=== PATIENT | female | born 1955 | race Caucasian/White ===

== ENCOUNTER 2020-07-02 12:54 | Outpatient (REF) | payer MEDICARE, SELFPAY ==
--- NOTE | 2020-07-02 13:05 | XR_ITS ---
EXAMINATION: XR CHEST CLINICAL INFORMATION: Lung nodule COMPARISON: Previous chest x-ray September 2014 TECHNIQUE: 2 views of the chest were obtained. FINDINGS: The cardiac and mediastinal contours are normal. There is increased density in the right upper lobe overlying the right first rib costochondral cartilage. This area measures approximately 0.7 x 2.3 cm. The lungs are otherwise clear. There is no pleural effusion or pneumothorax. There are degenerative changes of the spine. XR/XR chest 2V IMPRESSION: 0.7 x 2.3 cm increased density in the right upper lobe possibly related to right first rib costochondral cartilage. Comparison with old outside exams recommended. This could be further evaluated with apical lordotic view of the chest or chest CT scan.
== END 2020-07-02 12:55 | disposition home or self-care (01) ==
LOC: HO.XRAY 12:54
PROVIDERS: PCP Internal Medicine; Visit Provider Internal Medicine
DX: R91.1 Solitary pulmonary nodule (principal)
CPT/HCPCS: 71046

== ENCOUNTER 2020-07-22 09:54 | Outpatient (REF) | payer MEDICARE, SELFPAY ==
--- NOTE | 2020-07-22 09:58 | CT_ITS ---
EXAMINATION: CT CHEST WITHOUT CONTRAST CLINICAL INFORMATION: Follow-up abnormal chest x-ray COMPARISON: Previous chest x-ray July 02, 2020 TECHNIQUE: Multidetector volumetric CT imaging of the chest was done. Axial MIP volume rendering provided. Sagittal and coronal reformatted images were obtained. This CT examination was performed using dose optimization techniques as appropriate, variously including the following: *Automated exposure control *Adjustment of mA and/or kV according to patient size (this includes techniques or standardized protocols for targeted exams where dose is matched to indication/reason for exam; i.e. extremities or head) *Use of iterative reconstruction technique DLP: 214 mGy-cm FINDINGS: ASSESSMENT NURSE PRACTITIONER: LUNGS: There is a 7 mm slightly heterogeneous or semisolid right upper lobe nodule axial image 100 series 5. There is a 2 mm right upper lobe nodule axial image 126 series 5. There is a 2 mm right lower lobe nodule axial image 380 series 5. There are several peripheral or subpleural right lower lobe nodules probably representing subpleural lymph nodes, largest measuring 2 x 6 mm axial image 447 series 5. There is linear scarring or subsegmental atelectasis in the anterior segment of the right upper lobe and in the right lower lobe adjacent to the spine/vertebral body bony osteophyte. MEDIASTINUM: The thyroid gland has been removed. There are no enlarged hilar or mediastinal lymph nodes. The heart does not appear enlarged. There is mild coronary artery calcification. There is no pericardial effusion. The thoracic aorta is normal in caliber. There may be evidence of previous surgery at the gastroesophageal junction region. PLEURA: There is no pleural effusion. No pleural mass or thickening. AXILLA: No lymphadenopathy. UPPER ABDOMEN: Unremarkable. OSSEOUS STRUCTURES: There are degenerative changes of the spine. CT/CT chest wo con IMPRESSION: Pulmonary nodules, largest a 7 mm heterogeneous right upper lobe nodule. Chest CT follow-up in one year recommended. Post thyroidectomy. Mild coronary artery calcification.
== END 2020-07-22 09:55 | disposition home or self-care (01) ==
LOC: HO.CT 09:54
PROVIDERS: PCP Internal Medicine; Visit Provider Internal Medicine
DX: R93.89 Abnormal findings on diagnostic imaging of other specified body structures (principal)
CPT/HCPCS: 71250

== ENCOUNTER 2020-12-02 10:36 | Outpatient (REF) | payer MEDICARE, SELFPAY ==
[2020-12-02 10:40] LABS: MANUAL DIFF FLAG NO
[2020-12-02 11:03] LABS: Basophils Percent Auto 0.7 % (0-2); Eosinophils Absolute Auto 0.1 X10*3/uL (0.0-0.4); Eosinophils Percent Auto 1.7 % (0-4); Hematocrit 39.7 % (37-47); Hemoglobin 12.8 g/dl (12.0-16.0); Imm Gran Abs Auto 0.02 X10*3/uL (0.00-0.03); Imm Gran Pct Auto 0.3 % (0.0-0.4); Lymphocytes Absolute Auto 1.7 X10*3/uL (1.2-4.9); Lymphocytes Percent Auto 27.8 % (20-40); Mean Corpuscular HGB Conc 32.2 g/dl (31.0-35.0); Mean Corpuscular Hemoglobin 29.2 pg (27.0-33.0); Mean Corpuscular Volume 90.6 fL (80-98); Mean Platelet Volume 11.6 fL (9.4-12.3); Monocytes Absolute Auto 0.5 X10*3/uL (0.1-1.2); Monocytes Percent Auto 8.1 % (2-11); Neutrophils Absolute Auto 3.7 X10*3/uL (2.0-8.3); Neutrophils Percent Auto 61.4 % (45-73); Platelet Count 202 X10*3/uL (160-400); Red Blood Count 4.38 X10*6/uL (4.20-5.50); Red Cell Distribution Width 14.5 % (11.0-16.0)
[2020-12-02 12:40] LABS: TSH reflex Free T4 6.86 uIU/mL (0.32-4.0)
[2020-12-02 12:52] LABS: Alanine Aminotransferase 18 U/L (0-31); Albumin Level 4.2 g/dL (3.5-5.0); Alkaline Phosphatase 111 U/L (39-117); Anion Gap 15 (12-20); Aspartate Amino Transferase 18 U/L (5-31); Bilirubin Total 0.7 mg/dL (0.0-1.0); Blood Urea Nitrogen 22 mg/dL (9-16); Calcium 9.2 mg/dL (8.4-10.2); Carbon Dioxide 28 mmol/L (22-29); Chloride 102 mmol/L (96-108); Cholesterol 251 mg/dL; Estimated Glomerular Filt Rate 55; Glucose Fasting 96 mg/dL (60-99); HDL Cholesterol 58 mg/dL; LDL Cholesterol Calculated 141 mg/dl; Potassium 3.9 mmol/L (3.3-5.1); Sodium 141 mmol/L (135-145); Triglycerides 264 mg/dL
[2020-12-02 13:01] LABS: Reflex LDLD? No
[2020-12-02 13:37] LABS: Free T4 (Free Thyroxine) 1.12 ng/dL (0.71-1.85)
== END 2020-12-02 10:37 | disposition home or self-care (01) ==
LOC: HO.LNP 10:36
PROVIDERS: Visit Provider Internal Medicine
DX: E03.9 Hypothyroidism, unspecified (principal); E78.00 Pure hypercholesterolemia, unspecified; I10 Essential (primary) hypertension
CPT/HCPCS: 80053; 80061; 84439; 84443; 85025

== ENCOUNTER 2021-01-14 14:05 | Outpatient (REF) | payer MEDICARE, SELFPAY ==
--- NOTE | ~2021-01-14 | MM_ITS ---
EXAMINATION: BONE DENSITOMETRY CLINICAL INDICATION: Postmenopausal. COMPARISON: None (current study represents initial baseline exam). TECHNIQUE: Using a [employer] DXA System (software version: 13.1) manufactured by [employer], dual-energy x-ray absorptiometry was performed of the lumbar spine and left hip. The images are of good technical quality. Summary results are attached. FINDINGS: AP SPINE L1-L3 (excluding L4): The data of L1-L4 has been changed to exclude the L4 vertebral body, because degenerative changes at this level may cause overestimation of lumbar spine density. BMD 1.360 g/cm2, Z-score 2.0, T-score 1.6, normal. LEFT FEMUR, NECK: BMD 0.978 g/cm2, Z-score 0.3, T-score -0.4, normal. LEFT FEMUR, TOTAL: BMD 1.036 g/cm2, Z-score 0.7, T-score 0.2, normal. IDENTIFIED RISK FACTORS: Early menopause, height loss, bilateral oophorectomy, history of fracture (adult), hysterectomy, low calcium intake, secondary osteoporosis, Thiazide. HISTORY OF FRACTURE: Pelvis. MEDICATIONS: Calcium, vitamin D. MM/XR DEXA axial skeleton IMPRESSION: 1. DIAGNOSIS: Normal bone density based on the lowest T-score value of -0.4 in the femoral neck applying World Health Organization criteria. 2. 10-YEAR FRACTURE RISK PREDICTION, FRAX: According to the guidelines, FRAX calculation should only be performed on patients in the osteopenia bone density category. Therefore, FRAX was not performed on this patient. 3. Treatment Recommendations: NOF guidelines recommend consideration for treatment in postmenopausal women and men age 50 and older presenting with the following: -A hip or vertebral (clinical or morphometric) fracture. -T-score less than or equal to -2.5 at the femoral neck or spine after appropriate evaluation to exclude secondary causes. -Low bone mass at the hip or spine and a 10-year fracture probability by FRAX of greater than or equal to 3% for hip fracture or greater than or equal to 20% for major osteoporotic fracture based on the [place] adapted WHO algorithm. 4. Other Recommendations: All treatment decisions require clinical judgment and consideration of individual patient factors, including patient preferences, comorbidities, previous drug use, risk factors not captured in the FRAX model (e.g. frailty, falls, vitamin D deficiency, increased bone turnover, interval significant decline in bone density) and possible under or overestimation of fracture risk by FRAX. FUTURE SCAN RECOMMENDATION: People with diagnosed cases of osteoporosis or at high risk for fracture should have regular bone mineral density tests. For patients eligible for Medicare, routine testing is allowed once every 2 years. The testing frequency can be increased to one year for patients who have rapidly progressing disease, those who are receiving or discontinuing medical therapy to restore bone mass, or have additional risk factors.
== END 2021-01-14 14:06 | disposition home or self-care (01) ==
LOC: HO.MAMMO 14:05
PROVIDERS: PCP Internal Medicine; Visit Provider Internal Medicine
DX: Z13.820 Encounter for screening for osteoporosis (principal); N95.8 Other specified menopausal and perimenopausal disorders; Z90.722 Acquired absence of ovaries, bilateral; Z98.890 Other specified postprocedural states; Z79.899 Other long term (current) drug therapy
CPT/HCPCS: 77080

== ENCOUNTER 2021-02-06 10:15 | Outpatient (REF) | payer MEDICARE, SELFPAY ==
[2021-02-06 11:13] LABS: TSH reflex Free T4 4.25 uIU/mL (0.32-4.0)
[2021-02-06 11:48] LABS: Free T4 (Free Thyroxine) 1.15 ng/dL (0.71-1.85)
== END 2021-02-06 10:16 | disposition home or self-care (01) ==
LOC: HO.LNP 10:15
PROVIDERS: Visit Provider Internal Medicine
DX: E03.9 Hypothyroidism, unspecified (principal)
CPT/HCPCS: 84439; 84443

== ENCOUNTER 2021-07-27 13:16 | Outpatient (REF) | payer MEDICARE, SELFPAY ==
--- NOTE | ~2021-07-27 | CT_ITS ---
EXAMINATION: CT CHEST WITHOUT CONTRAST CLINICAL INFORMATION: Lung nodule. COMPARISON: CT chest 07/22/2020 and chest x-ray 07/02/2020. TECHNIQUE: Multidetector volumetric CT imaging of the chest was done. Axial MIP volume rendering provided. Sagittal and coronal reformatted images were obtained. This CT examination was performed using dose optimization techniques as appropriate, variously including the following: *Automated exposure control *Adjustment of mA and/or kV according to patient size (this includes techniques or standardized protocols for targeted exams where dose is matched to indication/reason for exam; i.e. extremities or head) *Use of iterative reconstruction technique DLP: 231 mGy-cm FINDINGS: GEAR REPAIRER: Well inflated lungs without acute process. LUNGS: The lungs are well inflated and clear acute pneumonic consolidation. There is irregular 5 mm nodule right lung apex image 84/6, 2 mm nodule right upper lobe posteriorly image 101/6, new focal atelectasis medially right middle lobe, previously visualized several subpleural pulmonary nodules are less distinct at this time in the right lower lobe. No new nodules visualized at this time. MEDIASTINUM: Surgical antoni seen in the thyroid bed from previous thyroidectomy. Central trachea and the bronchi widely patent. Heart size and the great vessels are normal caliber. Mild arthroscopic calcification of thoracic aorta and left coronary artery is noted. Mild mitral valve calcification is present as well. There is no pericardial effusion. No abnormal mediastinal adenopathy. Small hiatal hernia is suspected. PLEURA: There is no pleural effusion. No pleural mass or thickening. AXILLA: No lymphadenopathy. UPPER ABDOMEN: Julys liver, spleen, pancreas and bilateral adrenal glands are unremarkable. OSSEOUS STRUCTURES: No lytic or sclerotic process seen. There is moderate ventral spondylosis dorsal spine. CT/CT chest wo con IMPRESSION: 1. Stable pulmonary nodules. The largest right upper lobe pulmonary nodule measures 5 mm. Previously it measured 7 mm. No new nodules or abnormal mediastinal adenopathy seen. 2. Recommend long-term 18/24 month follow-up as per Fleischner guidelines .
== END 2021-07-27 13:17 | disposition home or self-care (01) ==
LOC: HO.CT 13:16
PROVIDERS: Visit Provider Internal Medicine
DX: R91.1 Solitary pulmonary nodule (principal)
CPT/HCPCS: 71250

== ENCOUNTER 2021-08-31 10:16 | Outpatient (REF) | payer MEDICARE, SELFPAY ==
[2021-08-31 10:32] LABS: Alanine Aminotransferase 16 U/L (0-31); Alkaline Phosphatase 117 U/L (39-117); Aspartate Amino Transferase 20 U/L (5-31); Bilirubin Direct 0.2 mg/dL (0.0-0.5); Bilirubin Total 0.6 mg/dL (0.0-1.0); Cholesterol 243 mg/dL; HDL Cholesterol 52 mg/dL; LDL Cholesterol Calculated 145 mg/dl; Total Protein 6.9 g/dL (6.5-8.0); Triglycerides 234 mg/dL
== END 2021-08-31 10:17 | disposition home or self-care (01) ==
LOC: HO.LNP 10:16
PROVIDERS: PCP Internal Medicine; Visit Provider Internal Medicine
DX: E78.00 Pure hypercholesterolemia, unspecified (principal)
CPT/HCPCS: 80061; 80076

== ENCOUNTER 2021-12-08 10:47 | Outpatient (REF) | payer MEDICARE, SELFPAY ==
[2021-12-08 10:50] LABS: MANUAL DIFF FLAG NO
[2021-12-08 11:15] LABS: Basophils Percent Auto 0.3 % (0-2); Eosinophils Absolute Auto 0.1 X10*3/uL (0.0-0.4); Eosinophils Percent Auto 2.1 % (0-4); Hematocrit 38.5 % (37.0-47.0); Hemoglobin 12.1 g/dl (12.0-16.0); Imm Gran Abs Auto 0.02 X10*3/uL (0.00-0.03); Imm Gran Pct Auto 0.3 % (0.0-0.4); Lymphocytes Absolute Auto 1.5 X10*3/uL (1.2-4.9); Lymphocytes Percent Auto 24.9 % (20-40); Mean Corpuscular HGB Conc 31.4 g/dl (31.0-35.0); Mean Corpuscular Hemoglobin 28.2 pg (27.0-33.0); Mean Corpuscular Volume 89.7 fL (80.0-98.0); Mean Platelet Volume 11.3 fL (9.4-12.3); Monocytes Absolute Auto 0.4 X10*3/uL (0.1-1.2); Monocytes Percent Auto 7.4 % (2-11); Neutrophils Absolute Auto 3.8 x10*3/uL (2.0-8.3); Platelet Count 203 X10*3/uL (160-400); Red Blood Count 4.29 X10*6/uL (4.20-5.50); Red Cell Distribution Width 14.6 % (11.0-16.0); White Blood Count 5.8 X10*3/uL (4.8-10.8)
[2021-12-08 11:33] LABS: Alanine Aminotransferase 17 U/L (0-31); Alkaline Phosphatase 108 U/L (39-117); Anion Gap 12 (12-20); Aspartate Amino Transferase 15 U/L (5-31); Bilirubin Total 0.5 mg/dL (0.0-1.0); Blood Urea Nitrogen 18 mg/dL (9-16); Calcium 9.8 mg/dL (8.4-10.2); Carbon Dioxide 28 mmol/L (22-29); Chloride 104 mmol/L (96-108); Cholesterol 238 mg/dL; Estimated Glomerular Filt Rate 59; Glucose Fasting 97 mg/dL (60-99); HDL Cholesterol 55 mg/dL; LDL Cholesterol Calculated 141 mg/dl; Potassium 3.6 mmol/L (3.3-5.1); Sodium 140 mmol/L (135-145); Total Protein 6.7 g/dL (6.5-8.0); Triglycerides 211 mg/dL
[2021-12-08 11:54] LABS: TSH reflex Free T4 4.77 uIU/mL (0.32-4.0)
[2021-12-08 12:30] LABS: Free T4 (Free Thyroxine) 1.22 ng/dL (0.71-1.85)
== END 2021-12-08 10:48 | disposition home or self-care (01) ==
LOC: HO.LNP 10:47
PROVIDERS: Visit Provider Internal Medicine
DX: I10 Essential (primary) hypertension (principal); E03.9 Hypothyroidism, unspecified; E78.00 Pure hypercholesterolemia, unspecified
CPT/HCPCS: 80053; 80061; 81001; 84439; 84443; 85025

== ENCOUNTER 2021-12-14 15:34 | Outpatient (REF) | payer MEDICARE, SELFPAY ==
[2021-12-14 15:49] LABS: Appearance Urine HAZY; Color Urine YELLOW; Glucose Urine UA NEG (NEG); Leukocyte Esterase Urine NEG (NEG); Nitrite Urine POS (NEG); PH 5.5 (5.0-8.0); Specific Gravity - Urine >= 1.030 (1.005-1.025); Urine Blood NEG (NEG); Urine Ketones NEG (NEG); Urine Protein NEG (NEG-TRACE)
[2021-12-14 16:26] LABS: Bacteria Urine 4+ /LPF; Mucus Urine 2+ /LPF; RBC Urine 0 /HPF (0); Squamous Epithelial Cell Urine 2+ /LPF
== END 2021-12-14 15:35 | disposition home or self-care (01) ==
LOC: HO.LNP 15:34
PROVIDERS: Visit Provider Internal Medicine
DX: I10 Essential (primary) hypertension (principal); E78.00 Pure hypercholesterolemia, unspecified
CPT/HCPCS: 81001

== ENCOUNTER 2022-06-11 10:44 | Outpatient (REF) | payer MEDICARE, SELFPAY ==
[2022-06-11 15:38] LABS: Alanine Aminotransferase 15 U/L (0-31); Albumin Level 4.1 g/dL (3.5-5.0); Alkaline Phosphatase 113 U/L (39-117); Aspartate Amino Transferase 16 U/L (5-31); Bilirubin Direct < 0.2 mg/dL (0.0-0.5); Bilirubin Total 0.4 mg/dL (0.0-1.0); Cholesterol 219 mg/dL; HDL Cholesterol 53 mg/dL; LDL Cholesterol Calculated 118 mg/dl; Total Protein 6.9 g/dL (6.5-8.0); Triglycerides 240 mg/dL
[2022-06-11 16:09] LABS: Reflex LDLD? No
== END 2022-06-11 10:45 | disposition home or self-care (01) ==
LOC: HO.LNP 10:44
PROVIDERS: Visit Provider Internal Medicine
DX: E78.00 Pure hypercholesterolemia, unspecified (principal)
CPT/HCPCS: 80061; 80076

== ENCOUNTER 2022-09-16 11:27 | Outpatient (REF) | payer MEDICARE, SELFPAY ==
[2022-09-16 12:59] LABS: Alanine Aminotransferase 18 U/L (0-31); Albumin Level 4.1 g/dL (3.5-5.0); Alkaline Phosphatase 129 U/L (39-117); Aspartate Amino Transferase 20 U/L (5-31); Bilirubin Direct 0.2 mg/dL (0.0-0.5); Bilirubin Total 0.7 mg/dL (0.0-1.0); Cholesterol 188 mg/dL; HDL Cholesterol 53 mg/dL; LDL Cholesterol Calculated 99 mg/dl; Total Protein 6.9 g/dL (6.5-8.0); Triglycerides 182 mg/dL
== END 2022-09-16 11:28 | disposition home or self-care (01) ==
LOC: HO.LNP 11:27
PROVIDERS: Visit Provider Internal Medicine
DX: E78.00 Pure hypercholesterolemia, unspecified (principal)
CPT/HCPCS: 80061; 80076

== ENCOUNTER 2022-12-09 10:48 | Outpatient (REF) | payer MEDICARE, SELFPAY ==
[2022-12-09 10:51] LABS: MANUAL DIFF FLAG NO
[2022-12-09 11:09] LABS: Basophils Percent Auto 0.5 % (0-2); Eosinophils Absolute Auto 0.1 X10*3/uL (0.0-0.4); Eosinophils Percent Auto 1.9 % (0-4); Hematocrit 39.9 % (37.0-47.0); Hemoglobin 12.8 g/dl (12.0-16.0); Imm Gran Abs Auto 0.02 X10*3/uL (0.00-0.03); Imm Gran Pct Auto 0.3 % (0.0-0.4); Lymphocytes Absolute Auto 1.7 X10*3/uL (1.2-4.9); Lymphocytes Percent Auto 26.7 % (20-40); Mean Corpuscular HGB Conc 32.1 g/dl (31.0-35.0); Mean Corpuscular Hemoglobin 28.6 pg (27.0-33.0); Mean Corpuscular Volume 89.3 fL (80.0-98.0); Mean Platelet Volume 11.5 fL (9.4-12.3); Monocytes Absolute Auto 0.5 X10*3/uL (0.1-1.2); Monocytes Percent Auto 8.6 % (2-11); Neutrophils Absolute Auto 3.8 x10*3/uL (2.0-8.3); Platelet Count 218 X10*3/uL (160-400); Red Blood Count 4.47 X10*6/uL (4.20-5.50); Red Cell Distribution Width 14.8 % (11.0-16.0); White Blood Count 6.2 X10*3/uL (4.8-10.8)
[2022-12-09 11:34] LABS: Alanine Aminotransferase 123 U/L (0-31); Alkaline Phosphatase 464 U/L (39-117); Anion Gap 13 (12-20); Aspartate Amino Transferase 67 U/L (5-31); Bilirubin Total 0.6 mg/dL (0.0-1.0); Blood Urea Nitrogen 15 mg/dL (9-16); Calcium 9.7 mg/dL (8.4-10.2); Carbon Dioxide 30 mmol/L (22-29); Chloride 105 mmol/L (96-108); Cholesterol 177 mg/dL; Estimated Glomerular Filt Rate 55; Glucose Fasting 101 mg/dL (60-99); HDL Cholesterol 62 mg/dL; LDL Cholesterol Calculated 85 mg/dl; Potassium 4.6 mmol/L (3.3-5.1); Sodium 143 mmol/L (135-145); Total Protein 6.9 g/dL (6.5-8.0); Triglycerides 153 mg/dL
[2022-12-09 11:44] LABS: TSH reflex Free T4 1.89 uIU/mL (0.32-4.0)
== END 2022-12-09 10:49 | disposition home or self-care (01) ==
LOC: HO.LNP 10:48
PROVIDERS: PCP Internal Medicine; Visit Provider Internal Medicine
DX: I10 Essential (primary) hypertension (principal); E03.9 Hypothyroidism, unspecified; E78.00 Pure hypercholesterolemia, unspecified
CPT/HCPCS: 80053; 80061; 81001; 84443; 85025

== ENCOUNTER 2022-12-16 15:43 | Outpatient (REF) | payer MEDICARE, SELFPAY ==
[2022-12-16 16:18] LABS: Appearance Urine Clear; Color Urine Yellow; Glucose Urine UA Negative (Negative); Leukocyte Esterase Urine Trace (Negative); Nitrite Urine Positive (Negative); PH 5.5 (5.0-9.0); UMIC TRIGGER UACC YES; Urine Blood Negative (Negative); Urine Ketones Negative (Negative); Urine Protein Negative (Neg-Trace)
[2022-12-16 16:22] LABS: Bacteria Urine 4+ (None Seen); Hyaline Casts Urine 0-2 /LPF (0-2); RBC Urine 0-2 /HPF (0-2); Squamous Epithelial Cell Urine 0-2 /HPF (0-2); UACC Culture Trigger YES; WBC Urine 0-5 /HPF (0-5)
[2022-12-16 16:31] LABS: Alanine Aminotransferase 98 U/L (0-31); Albumin Level 4.1 g/dL (3.5-5.0); Alkaline Phosphatase 391 U/L (39-117); Aspartate Amino Transferase 55 U/L (5-31); Bilirubin Direct 0.2 mg/dL (0.0-0.5); Bilirubin Total 0.8 mg/dL (0.0-1.0); Total Protein 7.2 g/dL (6.5-8.0)
[2022-12-25 06:48] LABS: Alk.Phos Iso. Macrohepatic 22 % (<=0); Alk.Phos Isoenzymes Bone 26 % (28-66); Alk.Phos Isoenzymes Intest 0 % (1-24); Alk.Phos Isoenzymes Liver 52 % (25-69); Alk.Phos Isoenzymes Placental 0 % (<=0); Alk.Phos Isoenzymes Total 333 U/L (37-153)
== END 2022-12-16 15:44 | disposition home or self-care (01) ==
LOC: HO.LNP 15:43
PROVIDERS: Visit Provider Internal Medicine
DX: R79.89 Other specified abnormal findings of blood chemistry (principal); R74.8 Abnormal levels of other serum enzymes; I10 Essential (primary) hypertension; R82.90 Unspecified abnormal findings in urine
CPT/HCPCS: 80076; 81001; 84080; 87086; 87088; 87186

== ENCOUNTER 2023-01-03 10:44 | Outpatient (REF) | payer MEDICARE, SELFPAY ==
[2023-01-03 11:14] LABS: Appearance Urine Clear; Color Urine Yellow; Glucose Urine UA Negative (Negative); Leukocyte Esterase Urine Negative (Negative); Nitrite Urine Negative (Negative); PH 5.5 (5.0-9.0); Urine Blood Negative (Negative); Urine Ketones Negative (Negative); Urine Protein Negative (Neg-Trace)
[2023-01-03 11:17] LABS: Bacteria Urine None Seen (None Seen); Hyaline Casts Urine 0-2 /LPF (0-2); RBC Urine 0-2 /HPF (0-2); Squamous Epithelial Cell Urine 0-2 /HPF (0-2); WBC Urine 0-5 /HPF (0-5)
== END 2023-01-03 10:45 | disposition home or self-care (01) ==
LOC: HO.LNP 10:44
PROVIDERS: PCP Internal Medicine; Visit Provider Internal Medicine
DX: N39.0 Urinary tract infection, site not specified (principal)
CPT/HCPCS: 81001

== ENCOUNTER 2023-01-13 11:03 | Outpatient (REF) | payer MEDICARE, SELFPAY ==
[2023-01-13 11:52] LABS: Alanine Aminotransferase 22 U/L (0-31); Alkaline Phosphatase 154 U/L (39-117); Aspartate Amino Transferase 21 U/L (5-31); Bilirubin Direct 0.1 mg/dL (0.0-0.5); Bilirubin Total 0.5 mg/dL (0.0-1.0); Total Protein 6.9 g/dL (6.5-8.0)
== END 2023-01-13 11:04 | disposition home or self-care (01) ==
LOC: HO.LNP 11:03
PROVIDERS: Visit Provider Internal Medicine
DX: R79.89 Other specified abnormal findings of blood chemistry (principal)
CPT/HCPCS: 80076

== ENCOUNTER 2023-03-10 13:17 | Outpatient (REF) | payer MEDICARE, SELFPAY ==
--- NOTE | ~2023-03-10 | CT_ITS ---
EXAMINATION: CT CHEST WITHOUT CONTRAST CLINICAL INFORMATION: Pulmonary nodule. COMPARISON: Previous chest CT scans most recent July 2021. TECHNIQUE: Multidetector volumetric CT imaging of the chest was done. Axial MIP volume rendering provided. Sagittal and coronal reformatted images were obtained. This CT examination was performed using dose optimization techniques as appropriate, variously including the following: *Automated exposure control *Adjustment of mA and/or kV according to patient size (this includes techniques or standardized protocols for targeted exams where dose is matched to indication/reason for exam; i.e. extremities or head) *Use of iterative reconstruction technique DLP: 222 mGy-cm FINDINGS: INTERNAL GRINDER: LUNGS: 6 mm slightly heterogeneous or semisolid right upper lobe nodule axial image 97 series 5 is stable. 2 mm calcified right upper lobe nodule axial image 103 series 5 is stable. No new pulmonary nodule. Small tracheal diverticulum that is stable. MEDIASTINUM: The thyroid gland has been removed. Normal heart size. Mild coronary artery calcification. No pericardial effusion. Normal caliber thoracic aorta. No enlarged hilar or mediastinal lymph nodes. CORONARY ARTERY CALCIFICATION: Mild. PLEURA: There is no pleural effusion. No pleural mass or thickening. AXILLA: No lymphadenopathy. UPPER ABDOMEN: Unremarkable. OSSEOUS STRUCTURES: Degenerative changes of the spine. CT/CT chest wo IV con IMPRESSION: Stable 5 mm right upper lobe pulmonary nodule. This is stable compared to oldest available chest CT June 2020. If the patient has history of known primary neoplasm, chest CT followup as per protocol. Otherwise, according to the UPDATED 2017 Fleischner Society recommendations, no additional chest CT followup. Fleischner guidelines were followed.
== END 2023-03-10 13:18 | disposition home or self-care (01) ==
LOC: HO.CT 13:17
PROVIDERS: PCP Internal Medicine; Visit Provider Internal Medicine
DX: R91.1 Solitary pulmonary nodule (principal)
CPT/HCPCS: 71250

== ENCOUNTER 2023-03-15 10:43 | Outpatient (REF) | payer MEDICARE, SELFPAY ==
[2023-03-15 11:54] LABS: Alanine Aminotransferase 19 U/L (0-31); Alkaline Phosphatase 121 U/L (39-117); Aspartate Amino Transferase 19 U/L (5-31); Bilirubin Direct 0.2 mg/dL (0.0-0.5); Bilirubin Total 0.5 mg/dL (0.0-1.0); Cholesterol 213 mg/dL (<200); HDL Cholesterol 57 mg/dL (>40); LDL Cholesterol Calculated 121 mg/dL (<100); Total Protein 7.2 g/dL (6.5-8.0); Triglycerides 176 mg/dL (<150)
== END 2023-03-15 10:44 | disposition home or self-care (01) ==
LOC: HO.LNP 10:43
PROVIDERS: PCP Internal Medicine; Visit Provider Internal Medicine
DX: E78.00 Pure hypercholesterolemia, unspecified (principal)
CPT/HCPCS: 80061; 80076

== ENCOUNTER 2023-12-09 11:13 | Outpatient (REF) | payer MEDICARE, SELFPAY ==
[2023-12-09 11:21] LABS: MANUAL DIFF FLAG NO
[2023-12-09 12:05] LABS: Basophils Percent Auto 0.6 % (0-2); Eosinophils Absolute Auto 0.1 X10*3/uL (0.0-0.4); Eosinophils Percent Auto 2.1 % (0-4); Hemoglobin 12.4 g/dl (12.0-16.0); Imm Gran Abs Auto 0.03 X10*3/uL (0.00-0.03); Imm Gran Pct Auto 0.5 % (0.0-0.4); Lymphocytes Absolute Auto 1.7 X10*3/uL (1.2-4.9); Lymphocytes Percent Auto 26.6 % (20-40); Mean Corpuscular HGB Conc 32.6 g/dl (31.0-35.0); Mean Corpuscular Hemoglobin 29.6 pg (27.0-33.0); Mean Corpuscular Volume 90.7 fL (80.0-98.0); Mean Platelet Volume 11.5 fL (9.4-12.3); Monocytes Absolute Auto 0.4 X10*3/uL (0.1-1.2); Monocytes Percent Auto 6.9 % (2-11); Neutrophils Percent Auto 63.3 % (45-73); Platelet Count 233 X10*3/uL (160-400); Red Blood Count 4.19 X10*6/uL (4.20-5.50); Red Cell Distribution Width 14.9 % (11.0-16.0); White Blood Count 6.3 X10*3/uL (4.8-10.8)
[2023-12-09 12:08] LABS: Appearance Urine Clear; Color Urine Yellow; Glucose Urine UA Negative (Negative); Leukocyte Esterase Urine Trace (Negative); Nitrite Urine Positive (Negative); PH 5.5 (5.0-9.0); Specific Gravity - Urine 1.015 (1.005-1.025); UMIC TRIGGER UACC YES; Urine Blood Negative (Negative); Urine Ketones Negative (Negative); Urine Protein Negative (Neg-Trace)
[2023-12-09 12:13] LABS: Bacteria Urine 4+ (None Seen); Hyaline Casts Urine 0-2 /LPF (0-2); RBC Urine 0-2 /HPF (0-2); UACC Culture Trigger YES
[2023-12-09 12:28] LABS: Alanine Aminotransferase 16 U/L (0-31); Alkaline Phosphatase 114 U/L (39-117); Anion Gap 16 (12-20); Aspartate Amino Transferase 20 U/L (5-31); Bilirubin Total 0.4 mg/dL (0.0-1.0); Blood Urea Nitrogen 19 mg/dL (9-16); Calcium 9.8 mg/dL (8.4-10.2); Carbon Dioxide 25 mmol/L (22-29); Chloride 104 mmol/L (96-108); Cholesterol 210 mg/dL (<200); Estimated Glomerular Filt Rate 52; Glucose Fasting 93 mg/dL (60-99); HDL Cholesterol 53 mg/dL (>40); LDL Cholesterol Calculated 123 mg/dL (<100); Potassium 3.7 mmol/L (3.3-5.1); Sodium 141 mmol/L (135-145); Total Protein 7.4 g/dL (6.5-8.0); Triglycerides 173 mg/dL (<150)
== END 2023-12-09 11:14 | disposition home or self-care (01) ==
LOC: HO.LNP 11:13
PROVIDERS: Visit Provider Internal Medicine
DX: I10 Essential (primary) hypertension (principal); E78.00 Pure hypercholesterolemia, unspecified; R82.90 Unspecified abnormal findings in urine
CPT/HCPCS: 80053; 80061; 81001; 85025; 87086; 87088; 87186

== ENCOUNTER 2024-06-11 10:56 | Outpatient (REF) | payer MEDICARE, SELFPAY ==
[2024-06-11 11:22] LABS: Alanine Aminotransferase 16 U/L (0-31); Albumin Level 3.9 g/dL (3.5-5.0); Aspartate Amino Transferase 27 U/L (5-31); Bilirubin Direct 0.1 mg/dL (0.0-0.5); Bilirubin Total 0.3 mg/dL (0.0-1.0); Cholesterol 218 mg/dL (<200); HDL Cholesterol 55 mg/dL (>40); LDL Cholesterol Calculated 112 mg/dL (<100); Triglycerides 255 mg/dL (<150)
[2024-06-11 11:27] LABS: Alkaline Phosphatase 126 U/L (39-117)
[2024-06-11 12:39] LABS: Reflex LDLD? No
== END 2024-06-11 10:57 | disposition home or self-care (01) ==
LOC: HO.LNP 10:56
PROVIDERS: Visit Provider Internal Medicine
DX: E78.00 Pure hypercholesterolemia, unspecified (principal)
CPT/HCPCS: 80061; 80076

== ENCOUNTER 2024-07-06 10:23 | Day surgery (SDC) | payer MEDICARE, SELFPAY ==
[2024-07-04 14:29] VITALS: BMI 42.8
--- OUTSIDE RECORDS SUMMARY | 2024-07-05 13:27 | XMS_ITS ---
Author Organization Audie Haywood MD Address [address] [place], [place] [id number] Care Team Providers Care Public Health Microbiologist Name Role Phone Audie Haywood Primary Care Provider RESULTS Component Value Reference Range Notes Liver Panel Reviewed date:06/11/2024 12:41:34 PM Interpretation: Performing Lab:[facility], [address] [place] [id number] Notes/Report: Bilirubin Total 0.3 0.0-1.0 mg/dL Bilirubin Direct 0.1 0.0-0.5 mg/dL Aspartate Amino Transferase 27 5-31 U/L Alanine Aminotransferase 16 0-31 U/L Total Protein 7.0 6.5-8.0 g/dL Albumin Level 3.9 3.5-5.0 g/dL Alkaline Phosphatase 126 39-117 U/L Lipid Panel with Reflex Reviewed date:06/11/2024 12:45:14 PM Interpretation: Performing Lab:[facility], [address] [place] [id number] Notes/Report: Triglycerides 255 <150 mg/dL Desirable Triglyceride: less than 150 mg/dL Borderline High Triglyceride 150-199 mg/dL High Triglyceride: 200-499 mg/dL Very High Triglyceride: greater than or equal to 5OO mg/dL Cholesterol 218 <200 mg/dL Desirable Cholesterol: less than 200 mg/dL Borderline High Cholesterol: 200-239 mg/dL High Cholesterol: greater than 239 mg/dL LDL Cholesterol Calculated 112 <100 mg/dL Desirable LDL: less than 100 mg/dL Near Optimal/Above Optimal LDL: 110-129 mg/dL Borderline High LDL: 130-159 mg/dL High LDL: 160-189 mg/dL Very High LDL: greater than or equal to 190 mg/dL HDL Cholesterol 55 >40 mg/dL Desirable HDL: greater than 40 mg/dL Note: This HDL assay may give artificially low results in patients with liver disease. REASON FOR VISIT fasting lipids Encounters Encounter Location Date Provider Diagnosis Audie Haywood MD [address] [place] [address] [address] [place], [place] [phone] 06/11/2024 Audie Haywood Pure hypercholestero lemia E78.00 ASSESSMENTS Encounter Date Diagnosis Assessment Notes Treatment Notes Treatment Clinical Notes 06/11/2024 Pure hypercholestero lemia (ICD-10 - E78.00) PLAN OF TREATMENT Next Appt Details Provider Name:Audie rodrigues, 12/18/2024 07:45:00 AM, [address] [place] [address], [address], [place], [place], [phone], Provider Name:Audie rodrigues, 12/25/2024 09:30:00 AM, [address] [place] [address], [address], [place], [place], [phone],
--- OUTSIDE RECORDS SUMMARY | 2024-07-05 13:27 | XMS_ITS ---
Author Organization [facility] Address [address] [place] [address] Care Team Providers Care Military Education Coordinator Name Role Phone Yobany DE GUZMAN, Audie Primary Care Provider Brian Jolly Unavailable [phone] ALLERGIES Allergen (clinical drug ingredient) Drug/Non Drug Allergy documented on EMR Reaction Allergy Type Onset Date Status Sulfa Unknown Drug Allergy Active Penicillin Unknown Drug Allergy Active Codeine Phosphate Unknown Drug Allergy Active REASON FOR VISIT Patient presents today for a COLON SCREENING, YOU'S ESOPHAGUS MEDICATIONS Medication SIG (Take, Route, Frequency, Duration) Notes Start Date End Date Status Hyoscyamine Sulfate 0.125 MG 1-2 tablets as needed Orally every 4 hrs for 30 days PRN esophageal spasm 11/15/2017 Active Omeprazole 40 MG TAKE ONE CAPSULE BY MOUTH EVERY DAY IN THE MORNING for 30 Not-Taking Omeprazole 40 MG 1 Orally Once a day every morning for 30 day(s) 03/23/2024 Active hydroCHLOROthiazide 12.5 MG TAKE ONE CAPSULE(S) BY MOUTH EVERY DAY Oral for 30 Not-Taking Pravastatin Sodium 40 MG 1 tablet Orally Once a day Active Synthroid 1 tablet on an empty stomach in the morning Orally Once a day Active Omeprazole 20 MG 1 capsule Orally Once a day for 30 day(s) Active amLODIPine Besy-Benazepril HCl 2.5-10 MG as directed Orally Active PreserVision AREDS - as directed Orally Active Slow-Mag 71.5-119 MG as directed Orally Active Levothyroxine Sodium 50 MCG 1 tablet in the morning on an empty stomach Orally Once a day for 30 day(s) Active Irbesartan-hydroCHLOROthi azide 150-12.5 MG 1 tablet Orally Once a day for 30 day(s) Active Turmeric 500 MG as directed Orally Active Alive Womens 50+ Gummy - as directed Orally Active Calcium 1 tab Oral for 14 days Active Zinc 100 MG 1 tablet Orally Once a day for 30 day(s) Active Allergy 4 MG 1 tablet as needed Orally every 6 hrs Active ibuprofen 1 tab Oral for 14 days as needed Active PROBLEMS Problem Type ICD Code Onset Dates Problem Status W/U Status Risk SNOMED Code Notes Problem Encounter for screening for malignant neoplasm of colon (Z12.11) Active confirmed Screening for malignant neoplasm of colon (310173670) Problem Dysphagia (R13.10) Active confirmed Dys phagia (58275043) Problem Gastroesophageal reflux disease with esophagitis without hemorrhage (K21.00) Active confirmed Gastroes ophageal reflux disease with esophagitis (disorder) (006213628) VITAL SIGNS BMI 42.79 kg/m2 03/23/2024 Blood pressure systolic 000 mm Hg 03/23/20 24 Blood pressure diastolic 00 mm Hg 024 Height 63.75 in 03/23/2024 Temperature 97.5 degrees Fahrenheit 03/23/20 24 Weight 247 lb 6 oz lbs 03/23/2024 Encounters Encounter Location Date Provider Diagnosis [facility] [address] [place] [address] 03/23/2024 Brian Banuelos Barretts esophagus without dysplasia K22.70 ; History of adenomatous polyp of colon Z86.010 ; GERD with esophagitis K21.0 ; Irritable bowel syndrome, unspecified type K58.9 ; Encounter for screening for malignant neoplasm of colon Z12.11 and Dysphagia R13.10 ASSESSMENTS Encounter Date Diagnosis Assessment Notes Treatment Notes Treatment Clinical Notes 03/23/2024 Barretts esophagus without dysplasia (ICD-10 - K22.70) Will increase the omeprazole to 40mg. Eat carefully. 03/23/2024 History of adenomatous polyp of colon (ICD-10 - Z86.010) 03/23/2024 GERD with esophagitis (ICD-10 - K21.0) 03/23/2024 Irritable bowel syndrome, unspecified type (ICD-10 - K58.9) 03/23/2024 Encounter for screening for malignant neoplasm of colon (ICD-10 - Z12.11) Stop Turmeric for 1 week before the procedures 03/23/2024 Dysphagia (ICD-10 - R13.10) PLAN OF TREATMENT Medication Medication Name Sig Start Date Stop Date Notes Omeprazole 40 MG 1 Orally Once a day every morning for 30 day(s) 03/23/2024 Treatment Notes Assessment Notes Barretts esophagus without dysplasia Chava l increase the omeprazole to 40mg. Eat carefully. Encounter for screening for malignant neoplasm of colon Stop Turmeric for 1 week before the procedures Future Test Test Name Order Date UPPER GI ENDOSCOPY BALLOOON DILATION OF ESOPH 03/23/2024 COLONOSCOPY 03/23/2024 Next Appt Details Follow Up: prn, Reason: Provider Name:Brian Banuelos , 07/06/2024 11:30:00 AM, [address] [place] [address] , [place], [place], [phone], Progress Notes * Examination Category Sub-Category Detail Notes General Examination GENERAL APPEARANCE: pleasant , well nourished, well developed, in no acute distress EYES: sclera non-icteric NECK/THYROID: no cervical lymphade nopathy, neck supple HEART: S1, S2 normal LUNGS: clear to auscultatio n bilaterally ABDOMEN: normal bowel sounds, no guarding or rigidity, no hepatosplenomegaly, no masses palpable, soft, nontender, nondistended. NEUROLOGIC: alert and oriented SKIN: nonjaundiced, no spi hali angiomata. EXTREMITIES: no edema ORAL CAVITY: mucosa moist
--- OUTSIDE RECORDS SUMMARY | 2024-07-05 13:27 | XMS_ITS | Patient Health Record ---
Author Organization [facility] Address [address] [place] [address] Care Team Providers Care Heel Former Name Role Phone Audie Haywood MD Primary Care Provider Brian Jolly Unavailable [phone] ALLERGIES Allergen (clinical drug ingredient) Drug/Non Drug Allergy documented on EMR Reaction Allergy Type Onset Date Status Sulfa Unknown Drug Allergy Active Penicillin Unknown Drug Allergy Active Codeine Phosphate Unknown Drug Allergy Active REASON FOR REFERRAL No Information MEDICATIONS Medication SIG (Take, Route, Frequency, Duration) Notes Start Date End Date Status Zinc 100 MG 1 tablet Orally Once a day for 30 day(s) Active Allergy 4 MG 1 tablet as needed Orally every 6 hrs Active Synthroid 1 tablet on an empty stomach in the morning Orally Once a day Active ibuprofen 1 tab Oral for 14 days as needed Active Omeprazole 20 MG 1 capsule Orally Once a day for 30 day(s) Active amLODIPine Besy-Benazepril HCl 2.5-10 MG as directed Orally Active Levothyroxine Sodium 50 MCG 1 tablet in the morning on an empty stomach Orally Once a day for 30 day(s) Active Omeprazole 40 MG 1 Orally Once a day every morning for 30 day(s) 03/23/2024 Active Irbesartan-hydroCHLOROthi azide 150-12.5 MG 1 tablet Orally Once a day for 30 day(s) Active Turmeric 500 MG as directed Orally Active PreserVision AREDS - as directed Orally Active Slow-Mag 71.5-119 MG as directed Orally Active Hyoscyamine Sulfate 0.125 MG 1-2 tablets as needed Orally every 4 hrs for 30 days PRN esophageal spasm 11/15/2017 Active Alive Womens 50+ Gummy - as directed Orally Active Omeprazole 40 MG TAKE ONE CAPSULE BY MOUTH EVERY DAY IN THE MORNING for 30 Not-Taking Calcium 1 tab Oral for 14 days Active hydroCHLOROthiazide 12.5 MG TAKE ONE CAPSULE(S) BY MOUTH EVERY DAY Oral for 30 Not-Taking Pravastatin Sodium 40 MG 1 tablet Orally Once a day Active IMMUNIZATIONS Vaccine Route Administration Date Status Comme nts Influenza Unknown 05/10/2023 Administered SOCIAL HISTORY Sex Assigned At : Social History Observation Description Sex Assigned At Unknown PROBLEMS Problem Type ICD Code Onset Dates Problem Status W/U Status Risk SNOMED Code Notes Problem Encounter for screening for malignant neoplasm of colon (Z12.11) Active confirmed Screening for malignant neoplasm of colon (547459289) Problem History of adenomatous polyp of colon (Z86.010) Active confirmed 749782333 Problem Dysphagia (R13.10) Active confirmed Dys phagia (09576781) Problem Gastroesophageal reflux disease without esophagitis (K21.9) Active confirmed 991281145 Problem Barretts esophagus without dysplasia (K22.70) Active confirmed 372501765 Problem GERD with esophagitis (K21.0) Active confirmed 346775283 Problem Irritable bowel syndrome, unspecified type (K58.9) Active confirmed 47944779 Problem Gastroesophageal reflux disease with esophagitis without hemorrhage (K21.00) Active confirmed Gastroes ophageal reflux disease with esophagitis (disorder) (851836127) VITAL SIGNS Temperature 97.5 degrees Fahrenheit 03/23/2024 Blood pressure diastolic 00 mm Hg 03/23/2024 Height 63.75 in 03/23/2024 Blood pressure systolic 000 mm Hg 03/23/2024 Weight 247 lb 6 oz lbs 03/23/2024 BMI 42.79 kg/m2 03/23/2024 Encounters Encounter Location Date Provider Diagnosis [facility] [address] [place] [address] 03/23/2024 Brian Banuelos Barretts esophagus without dysplasia K22.70 ; History of adenomatous polyp of colon Z86.010 ; GERD with esophagitis K21.0 ; Irritable bowel syndrome, unspecified type K58.9 ; Encounter for screening for malignant neoplasm of colon Z12.11 and Dysphagia R13.10 ASSESSMENTS Encounter Date Diagnosis Assessment Notes Treatment Notes Treatment Clinical Notes 03/23/2024 History of adenomatous polyp of colon (ICD-10 - Z86.010) 03/23/2024 Barretts esophagus without dysplasia (ICD-10 - K22.70) Will increase the omeprazole to 40mg. Eat carefully. 03/23/2024 GERD with esophagitis (ICD-10 - K21.0) 03/23/2024 Irritable bowel syndrome, unspecified type (ICD-10 - K58.9) 03/23/2024 Encounter for screening for malignant neoplasm of colon (ICD-10 - Z12.11) Stop Turmeric for 1 week before the procedures 03/23/2024 Dysphagia (ICD-10 - R13.10) PLAN OF TREATMENT Pending Test Test Name Order Date NUC HIDA SCAN 12/18/2012 US ABD 12/05/2012 Future Test Test Name Order Date UPPER GI ENDOSCOPY 01/15/2016 UPPER GI ENDOSCOPY BALLOOON DILATION OF ESOPH 03/23/2024 COLONOSCOPY 03/23/2024 Next Appt Details Provider Name:Brian Banuelos , 07/06/2024 11:30:00 AM, [address] [place] [address] , [place], [place], [phone], Insurance Providers Payer Name Payer Address Payer Phone Subscriber Number Group Number Insured Name Patient Relationship to Insured Coverage Start Date Coverage End Date MEDICARE OF [place] [address] [place] [address] [phone] [id number] [id number] FRY Self - patient is the insured MED[employer] ATTN CLAIMS [address] [place] [phone] [id number] Self - patient is the insured MEDICAL (GENERAL) HISTORY Medical History History ICD Code Upper endoscopy 09-24-2009-hea led esophagitis, large hiatal hernia; EGD in 2006 and 2002 with erosive esophagitis History of an esophageal ring/stricture dilated with Dr. 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 Smart at [facility] in 2002 EGD in 08/2012 with finding o f a small area of Montoya's esophagus, neg. dysplasia--moderate sized HH-esophageal ring dilated with a 20mm balloon 2007-neg. U/S and CT of abdomen at [facility] Colonoscopy in 07/2013 with r emoval of a > 1cm tubular adenoma in the sigmoid colon EGD in 03/2016---erosive esop hagitis, tiny area of Montoya's esophagus--no dysplasia--small hiatal hernia--started back on Omeprazole 40mg QD Upper endoscopy in 2018 reve aled small areas of Montoya's esophagus with biopsies negative for dysplasia; there was no esophagitis nor esophageal stricture; there was a small hiatal hernia; duodenal biopsies were negative for celiac disease Followup screening colonosco py in 2019 was negative for any polyps and biopsies were negative for any microscopic colitis Surgical History Surgery Date(Month/Year) bladder suspension in June of 2006 partial hysterectomy Bilateral oopherectomy pacemaker for bladder in 2010 Thyroidectomy in 09/2012 Hiatal hernia repair by Dr. Bustillo in 2012 Back surgery
--- OUTSIDE RECORDS SUMMARY | 2024-07-05 13:27 | XMS_ITS ---
Author Organization Audie Haywood MD Address [address] [place], [place] [phone] Care Team Providers Care Shredding Machine Knife Changer Name Role Phone Audie Haywood Primary Care Provider [phone] ALLERGIES Allergen (clinical drug ingredient) Drug/Non Drug Allergy documented on EMR Reaction Allergy Type Onset Date Status penicillin G Penicillin G Sodium hives Drug Allergy Active sulfamethoxazole / trimethoprim Bactrim hives Drug Allergy Active codeine codeine (uncoded) hives Allergy Ac tive REASON FOR VISIT 6 month MEDICATIONS Medication SIG (Take, Route, Frequency, Duration) Notes Start Date End Date Status ProAir HFA 108 (90 Base) MCG/ACT 2 puffs as needed Inhalation every 4 hrs for 30 days 07/26/2014 Not-Taking Hyoscyamine Sulfate 0.125 MG 1 tablet as needed Orally Four times a day as needed for 30 days Active ProAir HFA 108 (90 Base) MCG/ACT 2 puffs as needed Inhalation every 6 hrs for 30 days 08/31/2018 Not-Taking Valtrex 1 GM 2 tablet Orally twic e a day for 1 dose 07/21/2017 Not-Taking Estradiol 0.1 MG/GM as directed Vaginal daily for 90 days 05/31/2017 Not-Taking Ciclopirox 0.77 % 1 application Externally Twice a day Not-Takin g Pravastatin Sodium 40 MG TAKE ONE TABLET BY MOUTH EVERY DAY for 90 Active Chromium Picolinate 500 MCG as directed Orally Active Hydrocortisone John-Pramoxine 2.5-1 % 1 application as needed Externally Three times a day Not-Taking amLODIPine Besylate 5 MG TAKE ONE TABLET BY MOUTH EVERY DAY for 30 Active Irbesartan-hydroCHLOROthia zide 300-12.5 MG TAKE ONE TABLET BY MOUTH EVERY DAY Active Levothyroxine Sodium 50 MCG TAKE ONE TABLET BY MOUTH EVERY MORNING ON EMPTY STOMACH ALONG WITH 200MCG TABLET FOR TOTAL 250MCG PER DAY Active Omeprazole 40 MG 1 capsule Orally Onc e a day 08/09/2017 Active Synthroid 200 MCG TAKE ONE TABLET BY MOUTH EVERY DAY IN THE MORNING ON AN EMPTY STOMACH for 90 Active VITAL SIGNS Blood pressure systolic 144 mm Hg 06/18/20 24 Blood pressure diastolic 78 mm Hg 024 Height 65 in 06/18/2024 Encounters Encounter Location Date Provider Diagnosis Audie Haywood MD [address] [place] [address] [place] [phone] 06/18/2024 Audie Haywood Essential hypertensi on I10 ; Non morbid obesity due to excess calories E66.09 ; Chronic idiopathic constipation K59.04 and Pure hypercholesterolemia E78.00 ASSESSMENTS Encounter Date Diagnosis Assessment Notes Treatment Notes Treatment Clinical Notes 06/18/2024 Essential hypertensi on (ICD-10 - I10) well controlled 06/18/2024 Non morbid obesity d ue to excess calories (ICD-10 - E66.09) remains stable/ feels she lost 5 pounds since she is having bowel movements 06/18/2024 Chronic idiopathic constipation (ICD-10 - K59.04) doing much better with new pro and pre and other biiotics 06/18/2024 Pure hypercholestero lemia (ICD-10 - E78.00) doing well on meds.. won't take PLAN OF TREATMENT Treatment Notes Assessment Notes Essential hypertension well controlled Non morbid obesity due to excess calorie s remains stable/ feels she lost 5 pounds since she is having bowel movements Chronic idiopathic constipation doing mu ch better with new pro and pre and other biiotics Pure hypercholesterolemia doing well on meds.. won't take Next Appt Details Provider Name:Audie rodrigues, 12/18/2024 07:45:00 AM, [address] [place] [address], [address], [place], [place], [phone], Provider Name:Audie rodrigues, 12/25/2024 09:30:00 AM, [address] [place] [address], [address], [place], [place], [phone], Progress Notes * Examination Category Sub-Category Detail Notes General Examination GENERAL APPEARANCE: well dev eloped, well nourished HEAD: normocephalic HEART: regular rate and rhy thm , no murmurs, rubs, gallops LUNGS: no wheezes, rales, r honchi , good air movement , clear to auscultation bilaterally SKIN: good turgor
--- OUTSIDE RECORDS SUMMARY | 2024-07-05 13:28 | XMS_ITS | Patient Health Record ---
Author Organization Audie Haywood MD Address [address] [place], [place] [id number] Care Team Providers Care Senior Materials Planner Name Role Phone Yobany Audie Primary Care Provider [phone] ALLERGIES Allergen (clinical drug ingredient) Drug/Non Drug Allergy documented on EMR Reaction Allergy Type Onset Date Status penicillin G Penicillin G Sodium hives Drug Allergy Active sulfamethoxazole / trimethoprim Bactrim hives Drug Allergy Active codeine codeine (uncoded) hives Allergy Ac tive RESULTS Component Value Reference Range Notes MAMMOGRAM DIGITAL BILATERAL SCREEN Reviewed date:08/22/2023 09:24:12 AM Interpretation:Negative Performing Lab: Notes/Report: Negative Hold Gold Reviewed date:12/09/2023 08:05:12 PM Interpretation: Performing Lab:[address] [phone] Notes/Report: Hold Gold See Note Specimen held untested for 24 hours; Call to request Chemistry testing. Urine Culture Reviewed date:12/13/2023 02:29:15 PM Interpretation: Performing Lab:[address] [id number] Notes/Report: O:ESCCOL Escherichia coli Urine Culture Quant Urine Culture > 100,000 cfu/mL Ampicillin 4 Ceftriaxone <=0.25 Gentamicin <=1 Levofloxacin <=0.12 Nitrofurantoin <=16 Trimethoprim/Sulfamethoxazo le <=20 Complete Blood Count Auto Di ff Reviewed date:12/09/2023 08:41:33 PM Interpretation: Performing Lab:[facility], [address] [place] [phone] Notes/Report: White Blood Count 6.3 4.8-10.8 X10*3/uL Red Blood Count 4.19 4.20-5.50 X10*6/uL Hemoglobin 12.4 12.0-16.0 g/dl Hematocrit 38.0 37.0-47.0 % Mean Corpuscular Volume 90.7 80.0-98.0 fL Mean Corpuscular Hemoglobin 29.6 27.0-33.0 pg Mean Corpuscular HGB Conc 32.6 31.0-35.0 g/dl Red Cell Distribution Width 14.9 11.0-16.0 % Platelet Count 233 160-400 X10*3/uL Mean Platelet Volume 11.5 9.4-12.3 fL Neutrophils Percent Auto 63.3 45-73 % Imm Gran Pct Auto 0.5 0.0-0.4 % Lymphocytes Percent Auto 26.6 20-40 % Monocytes Percent Auto 6.9 2-11 % Eosinophils Percent Auto 2.1 0-4 % Basophils Percent Auto 0.6 0-2 % NRBC Pct Auto 0.0 0.0-0.2 /100WBC Neutrophils Absolute Auto 4.0 2.0-8.3 x10*3/u L Imm Gran Abs Auto 0.03 0.00-0.03 X10*3/uL Lymphocytes Absolute Auto 1.7 1.2-4.9 X10*3/u L Monocytes Absolute Auto 0.4 0.1-1.2 X10*3/uL Eosinophils Absolute Auto 0.1 0.0-0.4 X10*3/u L Basophils Absolute Auto 0.0 0.0-0.2 X10*3/uL NRBC Abs Auto 0.000 0.0-0.012 X10*3/uL Comprehensive [place]. Panel Fa st Reviewed date:12/09/2023 08:46:55 PM Interpretation: Performing Lab:[facility], [address] [place] [phone] Notes/Report: Sodium 141 135-145 mmol/L Potassium 3.7 3.3-5.1 mmol/L Chloride 104 96-108 mmol/L Carbon Dioxide 25 22-29 mmol/L Anion Gap 16 12-20 Blood Urea Nitrogen 19 9-16 mg/dL Creatinine 1.05 0.5-1.4 mg/dL Estimated Glomerular Filt Rate 52 NOTE: For -[place] individuals, multiply the result by 1.210. Chronic Kidney Disease: Estimated GFR < 60 mL/min/1.73m2 Severe Kidney Disease: Estimated GFR < 15 mL/min/1.73m2 Glucose Fasting 93 60-99 mg/dL Calcium 9.8 8.4-10.2 mg/dL Bilirubin Total 0.4 0.0-1.0 mg/dL Aspartate Amino Transferase 20 5-31 U/L Alanine Aminotransferase 16 0-31 U/L Total Protein 7.4 6.5-8.0 g/dL Albumin Level 4.0 3.5-5.0 g/dL Alkaline Phosphatase 114 39-117 U/L Lipid Panel Reviewed date:12/09/2023 08:05:22 PM Interpretation: Performing Lab:[address] [phone] Notes/Report: Triglycerides 173 <150 mg/dL Desirable Triglyceride: less than 150 mg/dL Borderline High Triglyceride 150-199 mg/dL High Triglyceride: 200-499 mg/dL Very High Triglyceride: greater than or equal to 5OO mg/dL Cholesterol 210 <200 mg/dL Desirable Cholesterol: less than 200 mg/dL Borderline High Cholesterol: 200-239 mg/dL High Cholesterol: greater than 239 mg/dL LDL Cholesterol Calculated 123 <100 mg/dL Desirable LDL: less than 100 mg/dL Near Optimal/Above Optimal LDL: 110-129 mg/dL Borderline High LDL: 130-159 mg/dL High LDL: 160-189 mg/dL Very High LDL: greater than or equal to 190 mg/dL HDL Cholesterol 53 >40 mg/dL Desirable HDL: greater than 40 mg/dL Note: This HDL assay may give artificially low results in patients with liver disease. UA ClnCatch+Micro w/rflx Cul t Reviewed date:12/09/2023 08:31:47 PM Interpretation: Performing Lab:[address] [phone] Notes/Report: Urine, Clean Catch Color Urine Yellow Appearance Urine Clear PH 5.5 5.0-9.0 Glucose Urine UA Negative Negative mg/dL Urine Blood Negative Negative Specific [place] - Urine 1.015 1.005-1.025 Urine Protein Negative Neg-Trace mg/dL Urine Ketones Negative Negative mg/dL Nitrite Urine Positive Negative Leukocyte Esterase Urine Trace Negative RBC Urine 0-2 0-2 /HPF WBC Urine 6-10 0-5 /HPF Squamous Epithelial Cell Urine 3-5 0-2 /HPF Bacteria Urine 4+ None Seen Hyaline Casts Urine 0-2 0-2 /LPF Hold Gold Reviewed date:06/11/2024 12:39:06 PM Interpretation: Performing Lab:[facility], [address] [place] [phone] Notes/Report: Ivelisse Neal See Note Specimen held untested for 24 hours; Call to request Chemistry testing. Liver Panel Reviewed date:06/11/2024 12:41:34 PM Interpretation: Performing Lab:[facility], [address] [place] [phone] Notes/Report: Bilirubin Total 0.3 0.0-1.0 mg/dL Bilirubin Direct 0.1 0.0-0.5 mg/dL Aspartate Amino Transferase 27 5-31 U/L Alanine Aminotransferase 16 0-31 U/L Total Protein 7.0 6.5-8.0 g/dL Albumin Level 3.9 3.5-5.0 g/dL Alkaline Phosphatase 126 39-117 U/L Lipid Panel with Reflex Reviewed date:06/11/2024 12:45:14 PM Interpretation: Performing Lab:[facility], [address] [place] [phone] Notes/Report: Triglycerides 255 <150 mg/dL Desirable Triglyceride: [...] in patients with liver disease. REASON FOR REFERRAL No Information MEDICATIONS Medication SIG (Take, Route, Frequency, Duration) Notes Start Date End Date Status Irbesartan-hydroCHLOROthia zide 300-12.5 MG TAKE ONE TABLET BY MOUTH EVERY DAY Active Levothyroxine Sodium 50 MCG TAKE ONE TABLET BY MOUTH EVERY MORNING ON EMPTY STOMACH ALONG WITH 200MCG TABLET FOR TOTAL 250MCG PER DAY Active Omeprazole 40 MG 1 capsule Orally Onc e a day 08/09/2017 Active ProAir HFA 108 (90 Base) MCG/ACT [...] a day for 1 dose 07/21/2017 Not-Taking Ciclopirox 0.77 % 1 application Externally Twice a day Not-Takin g Pravastatin Sodium 40 MG TAKE ONE TABLET BY MOUTH EVERY DAY for 90 Active Estradiol 0.1 MG/GM as directed Vaginal daily for 90 days 05/31/2017 Not-Taking Chromium Picolinate 500 MCG as directed Orally Active Synthroid 200 MCG TAKE ONE TABLET BY MOUTH EVERY DAY IN THE MORNING ON AN EMPTY STOMACH for 90 Active Hydrocortisone John-Pramoxine 2.5-1 % 1 application as needed Externally Three times a day Not-Taking amLODIPine Besylate 5 MG TAKE ONE TABLET BY MOUTH EVERY DAY for 30 Active IMMUNIZATIONS Vaccine Route Administration Date Status Comme nts Tetanus Unknown 02/25/2011 Administered Flu Vaccine IM Intramuscular 05/02/2012 Administered Flu Vaccine Unknown 04/16/2013 Administered [employer] Fluarix Quadrivalent IM Intramuscular 04/14/2015 Administe red PPSV23 (Pnemovax) IM Intramuscular 10/20/2015 Administered Fluarix Quadrivalent IM Intramuscular 03/30/2016 Administe red Flu Vaccine Unknown 04/26/2017 Administered [employer] Prevnar 13 IM Intramuscular 05/12/2017 Administered Fluarix Quadrivalent IM Intramuscular 04/18/2018 Administe red Fluarix Quadrivalent IM Intramuscular 04/30/2019 Administe red Fluarix Quadrivalent IM Intramuscular 06/03/2020 Administe red Covid Vaccine Unknown 12/03/2020 Administered Moderna Covid Vaccine Unknown 11/05/2020 Administered Moderna SARS-COV-2 Moderna Unknown 08/29/2021 Administered Influenza High Dose IM Intramuscular 09/07/2021 Administer ed Influenza High Dose IM Intramuscular 06/11/2022 Administer ed Influenza High Dose IM Intramuscular 04/01/2023 Administer ed Influenza High Dose IM Intramuscular 05/10/2024 Administer ed SOCIAL HISTORY Tobacco Use: Social History Observation Description Date Details (start date - stop date) Never Smoker NA - NA Sex Assigned At : Social History Observation Description Sex Assigned At Unknown Tobacco Use/Smoking Question Answer Notes Patient is a nonsmoker Additional Findings: Tobacco Non-User Cu rrent non-smoker, currently using no form of tobacco Alcohol Screen Question Answer Notes Did you have a drink containing alcohol in the p ast year? 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 453468722 Problem Other specified menopausal and perimenopausal disorders (N95.8) Active confirmed 968042165 Problem Encounter for immunization (Z23) Active confirmed Vaccinati on given (681873392) Problem Essential hypertensi on (I10) Active confirmed 68120071 Problem Acquired hypothyroid ism (E03.9) Active confirmed 230111411 Problem Mild intermittent asthma without complication (J45.20) Active confirmed 263962182 Problem Non morbid obesity d ue to excess calories (E66.09) Active confirmed 814810903 Problem Lung nodule (R91.1) Active confirmed 78 1861220 Problem Asthmatic bronchitis , mild intermittent, uncomplicated (J45.20) Active confirmed 020334728 Problem Hiatal hernia (K44.9) Active confirmed 56272550 Problem Barretts esophagus without dysplasia (K22.70) Active confirmed 322001787 Problem Oropharyngeal dyspha francisco (R13.12) Active confirmed 51497454 Problem Esophageal stricture (K22.2) Active confirmed 34819013 Problem Pure hypercholesterolemia, unspecified (E78.00) Active confirmed 694789992 Problem Chronic idiopathic constipation (K59.04) Active confirmed 10952222 Problem Pure hypercholesterolemia (E78.00) Active confirmed 288715218 Problem Esophageal spasm (K22.4) Active confirmed 069418613 Problem 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) Active confirmed 002827770 Problem Abnormal CXR (R93.89) Active confirmed 300932546 VITAL SIGNS Blood pressure diastolic 78 mm Hg 06/18/2024 Height 65 in 06/18/2024 Blood pressure systolic 144 mm Hg 06/18/2024 Weight 241 lbs 12/20/2023 weight is down 6 pounds since 12-16-22 BMI 40.10 kg/m2 12/20/2023 weight is down 6 pounds since 12-16-22 Encounters Encounter Location Date Provider Diagnosis Audie Haywood MD [address] [place] [id number] 12/20/2023 Audie Haywood Esophageal spasm K22 .4 ; Essential hypertension I10 ; Acquired hypothyroidism E03.9 ; Pure hypercholesterolemia E78.00 and Montoya's esophagus without dysplasia K22.70 Audie Haywood MD [address] [place] [id number] 12/09/2023 Audie Haywood Essential hypertensi on I10 and Pure hypercholesterolemia E78.00 Audie Haywood MD [address] [place] [id number] 06/11/2024 Audie Haywood Pure hypercholestero lemia E78.00 Audie Haywood MD [address] [id number] 05/10/2024 Audie Haywood Encounter for immuni zation Z23 Audie Haywood MD [address] [place] [id number] 06/18/2024 Audie Haywood Essential hypertensi on I10 ; Non morbid obesity due to excess calories E66.09 ; Chronic idiopathic constipation K59.04 and Pure hypercholesterolemia E78.00 Audie Haywood MD [address] [place] [id number] 12/13/2023 Audie Haywood ASSESSMENTS Encounter Date Diagnosis Assessment Notes Treatment Notes Treatment Clinical Notes 12/20/2023 Esophageal spasm (IC D-10 - K22.4) 12/09/2023 Essential hypertensi on (ICD-10 - I10) 12/09/2023 Pure hypercholestero lemia (ICD-10 - E78.00) 06/11/2024 Pure hypercholestero lemia (ICD-10 - E78.00) 05/10/2024 Encounter for immuni zation (ICD-10 - Z23) 06/18/2024 Essential hypertensi on (ICD-10 - I10) well controlled 06/18/2024 Non morbid obesity d ue to excess calories (ICD-10 - E66.09) remains stable/ feels she lost 5 pounds since she is having bowel movements 12/20/2023 Essential hypertensi on (ICD-10 - I10) recheck again in 6 mo, will continue current regiment 06/18/2024 Chronic idiopathic constipation (ICD-10 - K59.04) doing much better with new pro and pre and other biiotics 12/20/2023 Acquired hypothyroid ism (ICD-10 - E03.9) stable, will continue current regiment 06/18/2024 Pure hypercholestero lemia (ICD-10 - E78.00) doing well on meds.. won't take 12/20/2023 Pure hypercholestero lemia (ICD-10 - E78.00) stable, will continue current regiment 12/20/2023 Montoya's esophagus without dysplasia (ICD-10 - K22.70) will continue current regiment PLAN OF TREATMENT Pending Test Test Name Order Date CT CHEST NO CONTRAST 07/04/2020 Urinalysis 12/02/2020 XR DEXA axial skeleton 12/09/2020 Future Test Test Name Order Date BONE DENSITY DEXA 01/30/2020 CT chest wo con 07/11/2023 Next Appt Details Provider Name:Audie Keane ier, 12/18/2024 07:45:00 AM, [address] [place] [address], [address], [place], [place], [phone], Provider Name:Audie Keane ier, 12/25/2024 09:30:00 AM, [address] [place] [address], [address], [place], [place], [phone], Insurance Providers Payer Name Payer Address Payer Phone Subscriber Number Group Number Insured Name Patient Relationship to Insured Coverage Start Date Coverage End Date [employer] [address] [place] [address] [id number] Kristina Hdz Self - patient is the insured [employer] [place] [address] [place] [address] [id number] LisandraGiselaKristina Self - patient is the insured MEDICAL (GENERAL) HISTORY Medical History History ICD Code gluten sensitivy bladder surgery for pacemaker 10/2013 - Pap Smear 5 years ago complete Hysterectomy [address] 5mm.low r isk no need to follow. rt upper lobe unchanged from many years ago Colonoscopy & Endo 09/14/2018 - Dr. Banuelos (repeat 5 years Due 08/2023) Lung nodule R91.1 intolerant of atorvastatin Surgical History Surgery Date(Month/Year) Total Thyroidectomy 09/2012 Hysterectomy 1984 Carpal Tunnel surgery on right wrist 2014 Carpal Tunnel surgery on left wrist 10/24 015
--- OUTSIDE RECORDS SUMMARY | 2024-07-05 13:28 | XMS_ITS ---
Author Organization Audie Haywood MD Address [address] [place], [place] [phone] Care Team Providers Care Foreign Correspondent Name Role Phone Audie Haywood Primary Care Provider REASON FOR VISIT Flu vac IMMUNIZATIONS Vaccine Route Administration Date Status Comme nts Influenza High Dose IM Intramuscular 05/10/2024 Administer ed Encounters Encounter Location Date Provider Diagnosis Audie Haywood MD [address] [place], [place] [phone] 05/10/2024 Audie Haywood Encounter for immunization Z23 ASSESSMENTS Encounter Date Diagnosis Assessment Notes Treatment Notes Treatment Clinical Notes 05/10/2024 Encounter for immunization (ICD-10 - Z23) PLAN OF TREATMENT Next Appt Details Provider Name:Audie rodrigues, 12/18/2024 07:45:00 AM, [address] [place] [address], Suite [facility], [place], [place], [phone], Provider Name:Audie rodrigues, 12/25/2024 09:30:00 AM, [address] [place] [address], Suite [facility], [place], [place], [phone],
--- OUTSIDE RECORDS SUMMARY | 2024-07-06 10:43 | XMS_ITS ---
Author Organization Audie Haywood MD Address [address] [place], [place] [phone] Care Team Providers Care Polisher Sand Name Role Phone Audie Haywood Primary Care Provider REASON FOR VISIT Flu vac IMMUNIZATIONS Vaccine Route Administration Date Status Comme nts Influenza High Dose IM Intramuscular 05/10/2024 Administer ed Encounters Encounter Location Date Provider Diagnosis Audie Haywood MD [address] [place], [place] [phone] 05/10/2024 Audie Haywood Encounter for immunization Z23 ASSESSMENTS Encounter Date Diagnosis Assessment Notes Treatment Notes Treatment Clinical Notes 05/10/2024 Encounter for immunization (ICD-10 - Z23) PLAN OF TREATMENT Next Appt Details Provider Name:Audie rodrigues, 12/18/2024 07:45:00 AM, [address] [place] [address], Suite [facility], [place], [place], [phone], Provider Name:Audie rodrigues, 12/25/2024 09:30:00 AM, [address] [place] [address], Suite [facility], [place], [place], [phone],
--- OUTSIDE RECORDS SUMMARY | 2024-07-06 10:43 | XMS_ITS ---
Author Organization Audie Haywood MD Address [address] [place], [place] [phone] Care Team Providers Care Plate Straightener Name Role Phone Audie Haywood Primary Care Provider [phone] ALLERGIES Allergen (clinical drug ingredient) Drug/Non Drug [...] Location Date Provider Diagnosis Audie Haywood MD [address] [place] [address] [place] [id number] 06/18/2024 Audie Haywood Essential hypertensi on I10 [...] Details Provider Name:Audie rodrigues, 12/18/2024 07:45:00 AM, [address] [place] [address], [address], [place], [place], [phone], Provider Name:Audie rodrigues, 12/25/2024 09:30:00 AM, [address] [place] [address], [address], [place], [place], [phone], Progress Notes * Examination Category Sub-Category Detail Notes General Examination GENERAL APPEARANCE: well dev eloped, well nourished HEAD: normocephalic HEART: regular rate and rhy thm , no murmurs, rubs, gallops LUNGS: no wheezes, rales, r honchi , good air movement , clear to auscultation bilaterally SKIN: good turgor
--- OUTSIDE RECORDS SUMMARY | 2024-07-06 10:43 | XMS_ITS ---
Author Organization [facility] Address [address] [place] [address] Care Team Providers Care Extractor Operator Solvent Process Name Role Phone Yobany DE GUZMAN, Audie Primary Care Provider Brian Jolly Unavailable [phone] ALLERGIES Allergen (clinical drug ingredient) Drug/Non Drug [...] confirmed Screening for malignant neoplasm of colon (292957677) Problem Dysphagia (R13.10) Active confirmed Dys phagia (89127271) Problem Gastroesophageal reflux disease with esophagitis without hemorrhage (K21.00) Active confirmed Gastroes ophageal reflux disease with esophagitis (disorder) (275001954) VITAL SIGNS BMI 42.79 kg/m2 03/23/2024 Blood pressure systolic 000 mm Hg 03/23/20 24 Blood pressure diastolic 00 mm Hg 024 Height 63.75 in 03/23/2024 Temperature 97.5 degrees Fahrenheit 03/23/20 24 Weight 247 lb 6 oz lbs 03/23/2024 Encounters Encounter Location Date Provider Diagnosis [facility] [address] [place] [address] 03/23/2024 Brian Banuelos Barretts esophagus without dysplasia [...] Provider Name:Brian Banuelos , 07/06/2024 11:30:00 AM, [address] [place] [address] , [place], [place], [phone], Progress Notes * Examination Category Sub-Category Detail [...]
--- OUTSIDE RECORDS SUMMARY | 2024-07-06 10:43 | XMS_ITS ---
Author Organization Audie Haywood MD Address [address] [place], [place] [phone] Care Team Providers Care Automotive Collision Estimator Name Role Phone Audie Haywood Primary Care Provider RESULTS Component Value Reference Range Notes Liver Panel Reviewed date:06/11/2024 12:41:34 PM Interpretation: Performing Lab:[facility], [address] [place] [phone] Notes/Report: Bilirubin Total 0.3 0.0-1.0 mg/dL Bilirubin Direct 0.1 0.0-0.5 mg/dL Aspartate Amino Transferase 27 5-31 U/L Alanine Aminotransferase 16 0-31 U/L Total Protein 7.0 6.5-8.0 g/dL Albumin Level 3.9 3.5-5.0 g/dL Alkaline Phosphatase 126 39-117 U/L Lipid Panel with Reflex Reviewed date:06/11/2024 12:45:14 PM Interpretation: Performing Lab:[facility], [address] [place] [phone] Notes/Report: Triglycerides 255 <150 mg/dL Desirable Triglyceride: [...] Date Provider Diagnosis Audie Haywood MD [address] [place] [address] [address] [place], [place] [id number] 06/11/2024 Audie Haywood Pure hypercholestero lemia E78.00 ASSESSMENTS Encounter Date Diagnosis Assessment Notes Treatment Notes Treatment Clinical Notes 06/11/2024 Pure hypercholestero lemia (ICD-10 - E78.00) PLAN OF TREATMENT Next Appt Details Provider Name:Audie rodrigues, 12/18/2024 07:45:00 AM, [address] [place] [address], [address], [place], [place], [phone], Provider Name:Audie rodrigues, 12/25/2024 09:30:00 AM, [address] [place] [address], [address], [place], [place], [phone],
--- OUTSIDE RECORDS SUMMARY | 2024-07-06 10:43 | XMS_ITS ---
Author Organization [facility] Address [address] [place] [address] Care Team Providers Care Astrochemist Name Role Phone Audie Haywood MD Primary Care Provider Brian Jolly Unavailable [phone] REASON FOR VISIT baltazar's,gerd w/ esophagitis, dysphagia,screening,hx polyps Encounters Encounter Location Date Provider Diagnosis [facility] Outpatient [address] [place] [id number] 07/06/2024 Brian Banuelos PLAN OF TREATMENT Next Appt Details Provider Name:Brian Banuelos , 07/06/2024 11:30:00 AM, [address] [place] [address] , [place], [place], [phone],
--- OUTSIDE RECORDS SUMMARY | 2024-07-06 10:43 | XMS_ITS | Patient Health Record ---
Author Organization [facility] Address [address] [place] [address] Care Team Providers Care Food Production Associate Name Role Phone Audie Haywood MD Primary Care Provider Brian Jolly Unavailable [phone] ALLERGIES Allergen (clinical drug ingredient) Drug/Non Drug [...] confirmed Screening for malignant neoplasm of colon (442190110) Problem History of adenomatous polyp of colon (Z86.010) Active confirmed 053331860 Problem Dysphagia (R13.10) Active confirmed Dys phagia (39003940) Problem Gastroesophageal reflux disease without esophagitis (K21.9) Active confirmed 960211972 Problem Barretts esophagus without dysplasia (K22.70) Active confirmed 067367378 Problem GERD with esophagitis (K21.0) Active confirmed 949503846 Problem Irritable bowel syndrome, unspecified type (K58.9) Active confirmed 89835905 Problem Gastroesophageal reflux disease with esophagitis without hemorrhage (K21.00) Active confirmed Gastroes ophageal reflux disease with esophagitis (disorder) (533908705) VITAL SIGNS Temperature 97.5 degrees Fahrenheit 03/23/2024 Blood pressure diastolic 00 mm Hg 03/23/2024 Height 63.75 in 03/23/2024 Blood pressure systolic 000 mm Hg 03/23/2024 Weight 247 lb 6 oz lbs 03/23/2024 BMI 42.79 kg/m2 03/23/2024 Encounters Encounter Location Date Provider Diagnosis [facility] [address] [place], [place] [phone] 07/06/2024 Brian Banuelos [facility] [address] [place] [address] 03/23/2024 Brian Banueols Barretts esophagus without dysplasia K22.70 ; History [...] Provider Name:Brian Banuelos , 07/06/2024 11:30:00 AM, [address] [place] [address] , [place], [place], [phone], Insurance Providers Payer Name Payer Address Payer Phone Subscriber Number Group Number Insured Name Patient Relationship to Insured Coverage Start Date Coverage End Date MEDICARE OF [place] [address] [place] [address] [phone] [id number] EFRA FRY Self - patient is the insured MEDEX ATTN CLAIMS [address] [place] [phone] [id number] EFRA FRY Self - patient is the insured MEDICAL (GENERAL) HISTORY Medical History History ICD Code Upper endoscopy 09-24-2009-hea led esophagitis, large hiatal hernia; EGD in 2006 and 2002 with erosive esophagitis History of an esophageal ring/stricture dilated with Dr. 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 Smart at [facility] in 2002 EGD in 08/2012 with finding o f a small area of Montoya's esophagus, neg. dysplasia--moderate sized HH-esophageal ring dilated with a 20mm balloon 2007-neg. U/S and CT of abdomen at [facility] Colonoscopy in 07/2013 with r emoval of [...]
--- OUTSIDE RECORDS SUMMARY | 2024-07-06 10:44 | XMS_ITS | Patient Health Record ---
Author Organization Audie Haywood MD Address [address] [place], [place] [phone] Care Team Providers Care Weigher Operator Name Role Phone Yobany Audie Primary Care Provider [phone] ALLERGIES Allergen (clinical drug ingredient) Drug/Non Drug [...] Gold Reviewed date:12/09/2023 08:05:12 PM Interpretation: Performing Lab:[address] [phone] Notes/Report: Hold Gold See Note Specimen held untested for 24 hours; Call to request Chemistry testing. Urine Culture Reviewed date:12/13/2023 02:29:15 PM Interpretation: Performing Lab:[address] [phone] Notes/Report: O:ESCCOL Escherichia coli Urine Culture Quant Urine Culture > 100,000 cfu/mL Ampicillin 4 Ceftriaxone <=0.25 Gentamicin <=1 Levofloxacin <=0.12 Nitrofurantoin <=16 Trimethoprim/Sulfamethoxazo le <=20 Complete Blood Count Auto Di ff Reviewed date:12/09/2023 08:41:33 PM Interpretation: Performing Lab:[facility], [address] [place] [phone] Notes/Report: White Blood Count 6.3 4.8-10.8 X10*3/uL [...] NRBC Abs Auto 0.000 0.0-0.012 X10*3/uL Comprehensive [place]. Panel Fa st Reviewed date:12/09/2023 08:46:55 PM Interpretation: Performing Lab:[facility], [address] [place] [phone] Notes/Report: Sodium 141 135-145 mmol/L Potassium 3.7 3.3-5.1 mmol/L Chloride 104 96-108 mmol/L Carbon Dioxide 25 22-29 mmol/L Anion Gap 16 12-20 Blood Urea Nitrogen 19 9-16 mg/dL Creatinine 1.05 0.5-1.4 mg/dL Estimated Glomerular Filt Rate 52 NOTE: For -Gibraltarian individuals, multiply the result by 1.210. Chronic [...] Panel Reviewed date:12/09/2023 08:05:22 PM Interpretation: Performing Lab:[address] [phone] Notes/Report: Triglycerides 173 <150 mg/dL Desirable Triglyceride: [...] t Reviewed date:12/09/2023 08:31:47 PM Interpretation: Performing Lab:[address] [phone] Notes/Report: Urine, Clean Catch Color Urine Yellow Appearance Urine Clear PH 5.5 5.0-9.0 Glucose Urine UA Negative Negative mg/dL Urine Blood Negative Negative Specific [place] - Urine 1.015 1.005-1.025 Urine Protein Negative Neg-Trace mg/dL Urine Ketones Negative Negative mg/dL Nitrite Urine Positive Negative Leukocyte Esterase Urine Trace Negative RBC Urine 0-2 0-2 /HPF WBC Urine 6-10 0-5 /HPF Squamous Epithelial Cell Urine 3-5 0-2 /HPF Bacteria Urine 4+ None Seen Hyaline Casts Urine 0-2 0-2 /LPF Hold Gold Reviewed date:06/11/2024 12:39:06 PM Interpretation: Performing Lab:[facility], [address] [place] [phone] Notes/Report: Ivelisse Neal See Note Specimen held untested for 24 hours; Call to request Chemistry testing. Liver Panel Reviewed date:06/11/2024 12:41:34 PM Interpretation: Performing Lab:[facility], [address] [place] [phone] Notes/Report: Bilirubin Total 0.3 0.0-1.0 mg/dL Bilirubin Direct 0.1 0.0-0.5 mg/dL Aspartate Amino Transferase 27 5-31 U/L Alanine Aminotransferase 16 0-31 U/L Total Protein 7.0 6.5-8.0 g/dL Albumin Level 3.9 3.5-5.0 g/dL Alkaline Phosphatase 126 39-117 U/L Lipid Panel with Reflex Reviewed date:06/11/2024 12:45:14 PM Interpretation: Performing Lab:[facility], [address] [place] [phone] Notes/Report: Triglycerides 255 <150 mg/dL Desirable Triglyceride: [...] Notes Problem 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) Active confirmed 083092241 Problem Tubular adenoma (D36.9) Active confirmed 735117579 Problem Diverticulitis (K57.92) Active confirmed 370231392 Problem 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 275649457 Problem Other specified menopausal and perimenopausal disorders (N95.8) Active confirmed 372000894 Problem Encounter for immunization (Z23) Active confirmed Vaccinati on given (300026423) Problem Essential hypertensi on (I10) Active confirmed 86694670 Problem Acquired hypothyroid ism (E03.9) Active confirmed 380032848 Problem Mild intermittent asthma without complication (J45.20) Active confirmed 999268064 Problem Non morbid obesity d ue to excess calories (E66.09) Active confirmed 794144944 Problem Lung nodule (R91.1) Active confirmed 78 9874222 Problem Asthmatic bronchitis , mild intermittent, uncomplicated (J45.20) Active confirmed 998473491 Problem Hiatal hernia (K44.9) Active confirmed 97204503 Problem Barretts esophagus without dysplasia (K22.70) Active confirmed 035694007 Problem Oropharyngeal dyspha francisco (R13.12) Active confirmed 05144115 Problem Esophageal stricture (K22.2) Active confirmed 25375475 Problem Pure hypercholesterolemia, unspecified (E78.00) Active confirmed 261406888 Problem Chronic idiopathic constipation (K59.04) Active confirmed 11131839 Problem Pure hypercholesterolemia (E78.00) Active confirmed 054188939 Problem Esophageal spasm (K22.4) Active confirmed 131294674 Problem 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) Active confirmed 034858347 Problem Abnormal CXR (R93.89) Active confirmed 285132454 VITAL SIGNS Blood pressure diastolic 78 mm Hg 06/18/2024 Height 65 in 06/18/2024 Blood pressure systolic 144 mm Hg 06/18/2024 Weight 241 lbs 12/20/2023 weight is down 6 pounds since 12-16-22 BMI 40.10 kg/m2 12/20/2023 weight is down 6 pounds since 12-16-22 Encounters Encounter Location Date Provider Diagnosis Audie Haywood MD [address] [place] [id number] 12/20/2023 Audie Haywood Esophageal spasm K22 .4 ; Essential hypertension I10 ; Acquired hypothyroidism E03.9 ; Pure hypercholesterolemia E78.00 and Montoya's esophagus without dysplasia K22.70 Audie Haywood MD [address] [place] [id number] 12/09/2023 Audie Haywood Essential hypertensi on I10 and Pure hypercholesterolemia E78.00 Audie Haywood MD [address] [place] [id number] 06/11/2024 Audie Haywood Pure hypercholestero lemia E78.00 Audie Haywood MD [address] [id number] 05/10/2024 Audie Haywood Encounter for immuni zation Z23 Audie Haywood MD [address] [place] [id number] 06/18/2024 Audie Haywood Essential hypertensi on I10 ; Non morbid obesity due to excess calories E66.09 ; Chronic idiopathic constipation K59.04 and Pure hypercholesterolemia E78.00 Audie Haywood MD [address] [place] [id number] 12/13/2023 Audie Haywood ASSESSMENTS Encounter Date Diagnosis [...] Provider Name:Audie Keane ier, 12/18/2024 07:45:00 AM, [address] [place] [address], [address], [place], [place], [phone], Provider Name:Audie Keane ier, 12/25/2024 09:30:00 AM, [address] [place] [address], [address], [place], [place], [phone], Insurance Providers Payer Name Payer Address Payer Phone Subscriber Number Group Number Insured Name Patient Relationship to Insured Coverage Start Date Coverage End Date MEDICARE [employer] [address] [place] [address] [id number] Kristina Hdz Self - patient is the insured [place] [address] [place] [phone] [id number] LisandraiGselaKristina Self - patient is the insured MEDICAL [...]
--- NOTE | 2024-07-06 10:51 | HO.ANESPROP2 ---
[facility] Past Medical History Medical History Mary thyroiditis Elevated cholesterol HTN (hypertension) IBS (irritable bowel syndrome) GERD (gastroesophageal reflux disease) Family History Family history of problems with anesthesia: No Surgical History Surgical History History of back surgery History of repair of hiatal hernia Hx of thyroidectomy S/P placement of nerve stimulator Hx of bilateral oophorectomy History of partial hysterectomy History of bladder suspension procedure H/O colonoscopy History of esophagogastroduodenoscopy (EGD) History of Problems with Anesthesia: No Social History Social History Advance Directives: No Advance Directives Information Provided: Yes Meds Allergies Allergy/AdvReac Type Severity Reaction Status Date / Time Penicillins [PCN] Allergy Mild HIVES Verified 07/06/24 10:49 Sulfa (Sulfonamide Allergy Mild HIVES Verified 07/06/24 10:49 Antibiotics) [SULFA (SULFONAMIDE ANTIBIOTICS)] codeine Allergy Unknown Unknown Verified 07/06/24 10:49 Active Medications: Current Medications Sodium Biphosphate/Sodium Phosphate (Sodium Phosphate,[place]-Dibasic 133 Ml Enema) 133 ml UT ONCE PRN PRN Reason: Poor Colonoscopy Prep Results Home Medications ?Medication ?Instructions ?Recorded ?Confirmed ?Last Taken ?Type amlodipine 2.5 mg-benazepril 10 mg 1 cap PO DAILY 07/04/24 07/04/24 Unknown History capsule hyoscyamine sulfate 0.125 mg tablet 0.25 mg PO QID PRN esophageal spasm 07/04/24 07/04/24 Unknown History irbesartan 150 1 tab PO DAILY 07/04/24 07/04/24 Unknown History mg-hydrochlorothiazide 12.5 mg tablet levothyroxine 50 mcg tablet 50 mcg PO DAILY 07/04/24 07/04/24 Unknown History magnesium chloride 71.5 mg 71.5 mg PO DAILY 07/04/24 07/04/24 Unknown History (magnesium chloride) tablet,delayed release (Slow-Mag) multivitamin 1 tab PO DAILY 07/04/24 07/04/24 Unknown History omeprazole 40 mg capsule,delayed 40 mg PO DAILY 07/04/24 07/04/24 Unknown History release pravastatin 40 mg tablet 40 mg PO DAILY 07/04/24 07/04/24 Unknown History turmeric root extract 500 mg tablet 500 mg PO DAILY 07/04/24 07/04/24 Unknown History vit C 250 mg-vit E 90 mg-zinc 40 1 tab PO BID 07/04/24 07/04/24 Unknown History mg-copper 1 [id number] capsule (PreserVision AREDS-2) Exam Height,Weight and Vital Signs: Height 5 ft 3.75 in Weight 112.207 kg Airway Mallampati Class: III TM Dist: >3cm Neck ROM: Full (decreased mouth opening due to TMJ problem) Assessment and Plan Assessment Anesthesia Assessment: Anesthesia Plan Discussed and Chart Reviewed Final Anesthetic Review Family History of Problems with Anesthesia: No History of Problems with Anesthesia: No NPO: Yes ASA Class: III Final Preanesthetic Review: No Changes in Pt Med Stat, Meds/Allgs Chart Reviewed, Consent Obtained/Reviewed and Anes Risks/Benef Reviewed Patient Risk: Intermediate Procedure Risk: Low Anesthetic Plan Anesthetic Plan: TIVA Disposition: Standard PACU
[2024-07-06] MEDS: Lactated Ringers 1,000 ML 80 ML IVCONT (11:09)
[2024-07-06 11:19] VITALS: BP 137/71; PULSE 84; RESP 18; TEMP 36.7; O2SAT 97
[2024-07-06 12:47] VITALS: BP 89/42; PULSE 54; RESP 16; TEMP 36.4; O2SAT 99
--- NOTE | 2024-07-06 12:53 | P.BOP_ITS ---
Brief Operative Note Date of Service: 07/06/24 Pre-op diagnosis: Barretts, Screening Post-op diagnosis: other (Same, Hiatal hernia, Colon polyps) Procedure: EGD with biopsies, Colonoscopy to the cecum and TI with bx, and bx/removal of polyp Surgeon: Brian Banuelos MD Anesthesia: MAC Was an Rangeland Management Specialist used for this Procedure?: No Estimated blood loss (mL): 2.0 Pathology: other (A. EG Junction at 32cm B. Appendiceal orifice, R/O polyp C. Rectal polyp) Condition: stable Disposition: PACU
[2024-07-06 13:02] VITALS: BP 126/69; PULSE 64; RESP 16; TEMP 36.6; O2SAT 99
--- NOTE | 2024-07-06 13:20 | OP_ITS ---
DATE OF SERVICE: 07/06/2024 SURGEON: Brian Banuelos MD INDICATIONS: The patient presents for evaluation of gastroesophageal reflux, history of Montoya esophagus, dysphagia, personal history of tubular adenoma of the colon, and colorectal cancer screening. Full consent was obtained from her for this, including risks of bleeding and perforation. PREOPERATIVE DIAGNOSIS: POSTOPERATIVE DIAGNOSIS: PROCEDURE PERFORMED: Esophagogastroduodenoscopy with biopsies, and colonoscopy to the cecum and terminal ileum with biopsies, and biopsy and removal of polyp. ESTIMATED BLOOD LOSS: COMPLICATIONS: ANESTHESIA: Medication used, monitored anesthesia care. ASSISTANTS: SPECIMENS: PREOPERATIVE DIAGNOSES: Gastroesophageal reflux, Montoya esophagus, dysphagia, history of tubular adenomas, colorectal cancer screening. POSTOPERATIVE DIAGNOSES: Gastroesophageal reflux, Montoya esophagus, dysphagia, history of tubular adenomas, colorectal cancer screening, hiatal hernia, colon polyp, rule out polyp in appendiceal orifice, diverticulosis, and internal hemorrhoids. DESCRIPTION OF PROCEDURE: The patient was placed in the left lateral decubitus position. The Olympus video gastroscope was passed in the posterior oropharynx and upper esophagus under direct vision. The scope was passed slowly into the distal esophagus. The gastroesophageal junction appeared at 32 cm. This area was notable for short noncircumferential segments of probable Montoya mucosa. There was no evidence of any stricture, ring, nor lesion. There was no active esophagitis, nor ulceration. The scope easily entered into the stomach. There was a moderate sized hiatal hernia with the diaphragmatic indentation seen at approximately 37 cm. The hiatal hernia mucosa appeared normal. There were some proximal gastric polyps, which appeared to be quite benign and hyperplastic. The scope was advanced into the pylorus and the duodenum was cannulated to the descending portion. The duodenum including the bulb appeared normal without mass or ulceration. The scope was withdrawn back to the stomach. The gastric antrum and body appeared normal with good peristalsis. The scope was retroflexed visualizing the proximal stomach carefully, which appeared normal, without mass or ulceration, other than the hyperplastic appearing gastric polyps. The scope was straightened and withdrawn back to the esophagus. I did not think balloon dilation was required given the patency of the gastroesophageal junction. I did obtain multiple biopsies at the EG junction in the area of the presumed Montoya's mucosa. Proximal to this, the esophageal mucosa appeared normal. The scope was withdrawn from the patient. She was turned around for the colonoscopy. The digital rectal exam revealed no abnormalities. The Olympus video pediatric colonoscope was entered into the rectum and advanced easily to the cecum. Once in the cecum, I did identify cecal pouch with appendiceal orifice and a normal-appearing ileocecal valve. The terminal ileum was cannulated and appeared normal. Scope withdrawn back in the colon. The entire cecum was well visualized. In the appendiceal orifice was what appeared to be a possible polypoid lesion, but this may simply have represented some hyperplastic edematous tissue. Biopsies were obtained from the appendiceal orifice to rule out any component of adenoma. The remainder of the cecum appeared normal. The scope was slowly withdrawn assessing all mucosal surfaces carefully. Preparation was excellent. In the mid-rectum, there was a flat, approximately 3 mm polyp, which was biopsied and completely removed with cold biopsy forceps. I did not visualize any other polyps, colitis, or angiodysplasia. There was a mild amount of sigmoid diverticulosis. In the rectum, scope was retroflexed visualizing some internal hemorrhoids, but no other pathology. The rectal mucosa otherwise appeared normal. The scope was straightened and withdrawn from the patient. She tolerated the procedure well and was returned to recovery area in stable condition. IMPRESSION: 1. Colon polyp. 2. Rule out appendiceal orifice polyp. 3. Diverticulosis. 4. Internal hemorrhoids. 5. Hiatal hernia with associated Montoya esophagus. PLAN: The results of biopsies will be checked. If the appendiceal orifice polyp is adenomatous she most likely would need a surgical consult to consider surgery to remove that. If it is only hyperplastic tissue, I would then recommend a followup coloscopy in 5 years for further screening and surveillance. She does report that she has been doing better with her reflux and her swallowing since her omeprazole was increased to 40 mg and I have advised her to continue that long-term. I suspect her dysphagia is primarily related to some reflux and esophageal spasm. I would recommend a repeat upper endoscopy in 3 years for further surveillance of the Montoya's assuming today's biopsies do not show any dysplasia. She was advised not to use any aspirin and NSAIDs for 1 week. Of note, esophageal biopsies were sent for a Cypher study as well. MD JOSE Ralph/ZAYRA / [id number] SUSANA
== END 2024-07-06 13:28 | disposition home or self-care (01) ==
PROVIDERS: PCP Internal Medicine; Visit Provider Internal Medicine
PROC: 0DJD8ZZ Inspection of Lower Intestinal Tract, Via Natural or Artificial Opening Endoscopic (ICD-10-PCS; CPT 45378; principal; 2024-07-06 11:30)
PROC: (CPT 45380; 2024-07-06 11:30)
DX: Z12.11 Encounter for screening for malignant neoplasm of colon (principal); Z86.0101 Personal history of adenomatous and serrated colon polyps; D12.1 Benign neoplasm of appendix; K62.1 Rectal polyp; K57.30 Diverticulosis of large intestine without perforation or abscess without bleeding; K64.8 Other hemorrhoids; K58.9 Irritable bowel syndrome, unspecified; R13.10 Dysphagia, unspecified; K21.9 Gastro-esophageal reflux disease without esophagitis; K22.70 Barrett's esophagus without dysplasia; K31.7 Polyp of stomach and duodenum; K44.9 Diaphragmatic hernia without obstruction or gangrene; I10 Essential (primary) hypertension; E78.5 Hyperlipidemia, unspecified; E06.3 Autoimmune thyroiditis; Z79.1 Long term (current) use of non-steroidal anti-inflammatories (NSAID); Z79.899 Other long term (current) drug therapy; Z88.0 Allergy status to penicillin; Z88.2 Allergy status to sulfonamides; Z88.5 Allergy status to narcotic agent; Z98.890 Other specified postprocedural states
CPT/HCPCS: 45380; 43239; 88305; 88341; 88342; J2704

== ENCOUNTER 2024-07-26 13:46 | Outpatient (AMB) | payer MEDICARE, SELFPAY ==
--- NOTE | 2024-07-26 13:47 | MHC.OFFVIS ---
Vital Signs 07/26/24 13:57 Height 5 ft 6 in Weight 240 lb BMI 38.7 Intake Visit Reasons: colorectal cancer screening Intake Note: This patient was referred by for rectal polyp. Pt c/o; Dr. Banuelos did a colonoscopy and there is something he can not remove so he referred me . Assembler Gold Frame Required: No Accompanied by: Self / Same As Patient Allergies codeine Allergy (Mild, Verified 07/26/24 13:59) Nausea Penicillins [PCN] Allergy (Mild, Verified 07/26/24 13:59) HIVES Sulfa (Sulfonamide Antibiotics) [SULFA (SULFONAMIDE ANTIBIOTICS)] Allergy (Mild, Verified 07/26/24 13:59) HIVES Medication List - Last Reconciled 07/26/24 by Nash Hand MD amlodipine-benazepril 2.5-10 mg 1 cap PO DAILY hyoscyamine sulfate 0.25 mg PO QID PRN irbesartan-hydrochlorothiazide 150-12.5 mg 1 tab PO DAILY levothyroxine 50 mcg PO DAILY magnesium chloride (Slow-Mag) 71.5 mg PO DAILY multivitamin 1 tab PO DAILY omeprazole 40 mg PO DAILY pravastatin 40 mg PO DAILY turmeric root extract 500 mg PO DAILY vit C,Z-On-gnjuh-lutein-zeaxan 250-90-40-1 mg (PreserVision AREDS-2) 1 tab PO BID HPI HPI colorectal cancer screening: Details: 69-year-old female referred for a cecal polyp. She had a colonoscopy last 07/06/[address] Banuelos. There was note of a cecal polyp that he was in the appendiceal orifice so this was deemed to be unresectable endoscopically. Biopsies of this showed serrated adenoma without dysplasia. She has known to have a history of IBS. [facility] Medical History (Updated 07/26/24 @ 14:19 by Nash Hand MD) Cecal polyp Colon cancer screening Mary thyroiditis Elevated cholesterol HTN (hypertension) IBS (irritable bowel syndrome) GERD (gastroesophageal reflux disease) Surgical History History of back surgery History of repair of hiatal hernia Hx of thyroidectomy S/P placement of nerve stimulator Hx of bilateral oophorectomy History of partial hysterectomy History of bladder suspension procedure H/O colonoscopy History of esophagogastroduodenoscopy (EGD) Social History Are you a primary intensive care unit registered nurse to a significant other at home: No Do you presently have visiting nurse or other home services: No Patient Tobacco Use Status: Never used Tobacco Review of Systems Const Denies chills and Denies fever(s) Card Denies chest pain, Denies dyspnea and Denies dyspnea on exertion Resp Denies cough, Denies dyspnea and Denies dyspnea on exertion GI Denies hematochezia and Denies change in bowel habits Denies hematuria Musc Denies back pain and Denies limited range of motion Neuro Denies focal weakness and Denies convulsions Psych Denies depression and Denies mood swings Physical Exam Vital Signs: BMI result Body Mass Index 38.7 Const Other: Morbidly obese General: comfortable and no acute distress Orientation/consciousness: patient oriented x3 Neck Neck: Yes no lymphadenopathy Resp Auscultation: clear to auscultation bilaterally Cardio Rhythm: regular rhythm GI Palpation (GI): Soft to palpation, nontender and no guarding Neuro General: patient oriented x3 Assessment & Plan Assessment & Plan (1) Cecal polyp: Code(s): K63.5 - Polyp of colon Category: Medical Plan: She had this cecal polyp in the appendiceal orifice that was deemed to be not endoscopically resectable. He was referred to me therefore for resection. I explained the technique of right colon resection, hand assisted laparoscopic. I reviewed the risks including but not limited to bleeding, infections, possible conversion to open, line leak, blood clots, pneumonia, bowel injury, as well as the benefits and alternatives. I discussed with her what to expect postoperatively She does present with significant perioperative risks with her morbid obesity. She says she understands and wants to proceed. I have discussed this case with Dr. Banuelos, her server engineer. Coding Level of Care Code New Pt Level 3 (61533) Diagnoses Cecal polyp K63.5
[2024-07-26 13:57] VITALS: BMI 38.7
--- OUTSIDE RECORDS SUMMARY | 2024-07-26 15:05 | XMS_ITS ---
Author Organization [facility] Address [address] [place] [address] Care Team Providers Care Dungeon Master Name Role Phone Audie Haywood MD Primary Care Provider Brian Jolly [phone] REASON FOR VISIT Appendiceal orifice polyp Encounters Encounter Location Date Provider Diagnosis [facility] [address] [place] [address] 07/11/2024 Brian Banuelos PLAN OF TREATMENT No Information
--- OUTSIDE RECORDS SUMMARY | 2024-07-26 15:05 | XMS_ITS ---
Author Organization [facility] Address [address] [place] [address] Care Team Providers Care Care Assistant Name Role Phone Yobany DE GUZMAN, Audie Primary Care Provider Brian Jolly Unavailable [phone] ALLERGIES Allergen (clinical drug ingredient) Drug/Non Drug [...] confirmed Screening for malignant neoplasm of colon (834096547) Problem Dysphagia (R13.10) Active confirmed Dys phagia (73632936) Problem Gastroesophageal reflux disease with esophagitis without hemorrhage (K21.00) Active confirmed Gastroes ophageal reflux disease with esophagitis (disorder) (805779786) VITAL SIGNS BMI 42.79 kg/m2 03/23/2024 Blood pressure systolic 000 mm Hg 03/23/20 24 Blood pressure diastolic 00 mm Hg 024 Height 63.75 in 03/23/2024 Temperature 97.5 degrees Fahrenheit 03/23/20 24 Weight 247 lb 6 oz lbs 03/23/2024 Encounters Encounter Location Date Provider Diagnosis [facility] [address] [place] [address] 03/23/2024 Brian Banuelos Barretts esophagus without dysplasia [...] Next Appt Details Follow Up: prn, Reason: Progress Notes * Examination Category Sub-Category Detail [...]
--- OUTSIDE RECORDS SUMMARY | 2024-07-26 15:05 | XMS_ITS | Patient Health Record ---
Author Organization [facility] Address [address] [place] [address] Care Team Providers Care Director Communications Name Role Phone Audie Haywood MD Primary Care Provider Brian Jolly Unavailable [phone] ALLERGIES Allergen (clinical drug ingredient) Drug/Non Drug Allergy documented on EMR Reaction Allergy Type Onset Date Status Sulfa Unknown Drug Allergy Active Penicillin Unknown Drug Allergy Active Codeine Phosphate Unknown Drug Allergy Active RESULTS Component Value Reference Range Notes Pathology Reviewed date:07/23/2024 07:44:42 AM Interpretation: Performing Lab:[facility], [address] [place] [phone] Notes/Report: REASON FOR REFERRAL Reason serrated polyp Diagnosis 1 Serrated polyp of co jf (K63.5) Referral Organization [facility] Referring Provider First Name Brian Referring Provider Last Name Lakisha Referring Provider Speciality Gastroente rology Referred Provider Nash Hand Referred Provider Specialty Surgery Referral Priority Routine Referral Appointment Date 07/26/2024 MEDICATIONS Medication SIG (Take, Route, Frequency, Duration) [...] confirmed Screening for malignant neoplasm of colon (011721645) Problem History of adenomatous polyp of colon (Z86.010) Active confirmed 221202355 Problem Diverticulosis of large intestine without perforation or abscess without bleeding (K57.30) Active confirmed Diverticul ar disease of colon (745072111) Problem Dysphagia (R13.10) Active confirmed Dys phagia (39362754) Problem Gastroesophageal reflux disease (K21.9) Active confirmed Gastroesophagea l reflux disease (857393230) Problem Gastroesophageal reflux disease without esophagitis (K21.9) Active confirmed 798348017 Problem Barretts esophagus without dysplasia (K22.70) Active confirmed 303564151 Problem Gastric polyps (K31.7) Active confirmed Benign neoplasm of stomach (35521863) Problem GERD with esophagitis (K21.0) Active confirmed 770702940 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 Montoya esophag us (018323508) Problem Irritable bowel syndrome, unspecified type (K58.9) Active confirmed 00133588 Problem Gastroesophageal reflux disease with esophagitis without hemorrhage (K21.00) Active confirmed Gastroes ophageal reflux disease with esophagitis (disorder) (958735740) VITAL SIGNS Temperature 97.5 degrees Fahrenheit 03/23/2024 Blood pressure diastolic 00 mm Hg 03/23/2024 Height 63.75 in 03/23/2024 Blood pressure systolic 000 mm Hg 03/23/2024 Weight 247 lb 6 oz lbs 03/23/2024 BMI 42.79 kg/m2 03/23/2024 Encounters Encounter Location Date Provider Diagnosis [facility] [address] [place] [id number] 07/06/2024 Brian Banuelos Colon cancer screeni ng Z12.11 ; Colon polyps K63.5 ; Rectal polyp K62.1 ; Diverticulosis of large intestine without perforation or abscess without bleeding K57.30 ; Other hemorrhoids K64.8 ; Montoya esophagus K22.70 ; Hiatal hernia K44.9 ; Gastric polyps K31.7 ; Gastroesophageal reflux disease K21.9 and Dysphagia R13.10 [facility] [address] [place] [address] 03/23/2024 Brian Banuelos Barretts esophagus without dysplasia K22.70 ; History of adenomatous polyp of colon Z86.010 ; GERD with esophagitis K21.0 ; Irritable bowel syndrome, unspecified type K58.9 ; Encounter for screening for malignant neoplasm of colon Z12.11 and Dysphagia R13.10 [facility] [address] [place] [address] 07/11/2024 Brian Banuelos ASSESSMENTS Encounter Date Diagnosis Assessment Notes Treatment Notes Treatment Clinical Notes 07/06/2024 Colon cancer screeni ng (ICD-10 - Z12.11) 07/06/2024 Colon polyps (ICD-10 - K63.5) 03/23/2024 History of adenomato us polyp of colon (ICD-10 - Z86.010) 03/23/2024 Barretts esophagus without dysplasia (ICD-10 - K22.70) Will increase the omeprazole to 40mg. Eat carefully. 07/06/2024 Rectal polyp (ICD-10 - K62.1) 03/23/2024 GERD with esophagiti s (ICD-10 - K21.0) 07/06/2024 Diverticulosis of la rge intestine without perforation or abscess without bleeding (ICD-10 - K57.30) 03/23/2024 Irritable bowel syndrome, unspecified type (ICD-10 - K58.9) 07/06/2024 Other hemorrhoids (ICD-10 - K64.8) 03/23/2024 Encounter for screen ing for malignant neoplasm of colon (ICD-10 - Z12.11) Stop Turmeric for 1 week before the procedures 07/06/2024 Montoya esophagus (ICD-10 - K22.70) 03/23/2024 Dysphagia (ICD-10 - R13.10) 07/06/2024 Hiatal hernia (ICD-1 0 - K44.9) 07/06/2024 Gastric polyps (ICD- 10 - K31.7) 07/06/2024 Gastroesophageal ref lux disease (ICD-10 - K21.9) 07/06/2024 Dysphagia (ICD-10 - R13.10) PLAN OF TREATMENT Pending Test Test Name Order Date NUC HIDA SCAN 12/18/2012 US ABD 12/05/2012 Future Test Test Name Order Date UPPER GI ENDOSCOPY 01/15/2016 UPPER GI ENDOSCOPY BALLOOON DILATION OF ESOPH 03/23/2024 COLONOSCOPY 03/23/2024 Insurance Providers Payer Name Payer Address Payer Phone Subscriber Number Group Number Insured Name Patient Relationship to Insured Coverage Start Date Coverage End Date MEDICARE OF [place] [address] [place] [address] [id number] EFRA FRY Self - patient is the insured MEDEX ATTN CLAIMS [address] [place] [address] [phone] [id number] EFRA FRY Self - patient is the insured MEDICAL (GENERAL) HISTORY Medical History History ICD Code Upper endoscopy 09-24-2009-hea led esophagitis, large hiatal hernia; EGD in 2006 and 2002 with erosive esophagitis History of an esophageal ring/stricture dilated with Dr. 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 Smart at [facility] in 2002 EGD in 08/2012 with finding o f a small area of Montoya's esophagus, neg. dysplasia--moderate sized HH-esophageal ring dilated with a 20mm balloon 2007-neg. U/S and CT of abdomen at [facility] Colonoscopy in 07/2013 with r emoval [...]
--- OUTSIDE RECORDS SUMMARY | 2024-07-26 15:05 | XMS_ITS ---
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 Baltazar esophag us (366068580) Problem Gastric polyps (K31.7) Active confirmed Benign neoplasm of stomach (76412416) Problem Gastroesophageal reflux disease (K21.9) Active confirmed Gastroesophagea l reflux disease (913948633) Encounters Encounter Location Date Provider Diagnosis [facility] Outpatient [address] [place] [id number] 07/06/2024 Brian Banuelos Colon cancer screeni ng Z12.11 ; Colon polyps K63.5 ; Rectal polyp K62.1 ; Diverticulosis of large intestine without perforation or abscess without bleeding K57.30 ; Other hemorrhoids K64.8 ; Baltazar esophagus K22.70 ; Hiatal hernia K44.9 ; Gastric polyps K31.7 ; Gastroesophageal reflux disease K21.9 and Dysphagia R13.10 ASSESSMENTS Encounter Date Diagnosis Assessment Notes Treatment Notes Treatment Clinical Notes 07/06/2024 Colon cancer screeni ng (ICD-10 - Z12.11) 07/06/2024 Colon polyps (ICD-10 - K63.5) 07/06/2024 Rectal polyp (ICD-10 - K62.1) 07/06/2024 Diverticulosis of la rge intestine without perforation or abscess without bleeding (ICD-10 - K57.30) 07/06/2024 Other hemorrhoids (ICD-10 - K64.8) 07/06/2024 Baltazar esophagus (ICD-10 - K22.70) 07/06/2024 Hiatal hernia (ICD-1 0 - K44.9) 07/06/2024 Gastric polyps (ICD- 10 - K31.7) 07/06/2024 Gastroesophageal ref lux disease (ICD-10 - K21.9) 07/06/2024 Dysphagia (ICD-10 - R13.10) PLAN OF TREATMENT No Information
--- OUTSIDE RECORDS SUMMARY | 2024-07-26 15:06 | XMS_ITS ---
Author Organization Audie Haywood MD Address [address] [place], [place] [id number] Care Team Providers Care Fern Gatherer Name Role Phone Audie Haywood Primary Care Provider ALLERGIES Allergen (clinical drug ingredient) Drug/Non Drug [...] Location Date Provider Diagnosis Audie Haywood MD [address] [place] [address] [place] [id number] 06/18/2024 Audie Haywood Essential hypertensi on I10 [...] Details Provider Name:Audie rodrigues, 12/18/2024 07:45:00 AM, [address] [place] [address], [address], [place], [place], [phone], Provider Name:Audie rodrigues, 12/25/2024 09:30:00 AM, [address] [place] [address], [address], [place], [place], [phone], Progress Notes * Examination Category Sub-Category Detail Notes General Examination GENERAL APPEARANCE: well dev eloped, well nourished HEAD: normocephalic HEART: regular rate and rhy thm , no murmurs, rubs, gallops LUNGS: no wheezes, rales, r honchi , good air movement , clear to auscultation bilaterally SKIN: good turgor
--- OUTSIDE RECORDS SUMMARY | 2024-07-26 15:06 | XMS_ITS | Patient Health Record ---
Author Organization Audie Haywood MD Address [address] [place], [place] [phone] Care Team Providers Care Associate Professor Physician Name Role Phone Yobany Audie Primary Care Provider ALLERGIES Allergen (clinical drug [...] Gold Reviewed date:12/09/2023 08:05:12 PM Interpretation: Performing Lab:[address] [phone] Notes/Report: Hold Gold See Note Specimen held untested for 24 hours; Call to request Chemistry testing. Urine Culture Reviewed date:12/13/2023 02:29:15 PM Interpretation: Performing Lab:[address] [phone] Notes/Report: O:ESCCOL Escherichia coli Urine Culture Quant Urine Culture > 100,000 cfu/mL Ampicillin 4 Ceftriaxone <=0.25 Gentamicin <=1 Levofloxacin <=0.12 Nitrofurantoin <=16 Trimethoprim/Sulfamethoxazo le <=20 Complete Blood Count Auto Di ff Reviewed date:12/09/2023 08:41:33 PM Interpretation: Performing Lab:[facility], [address] [place] [phone] Notes/Report: White Blood Count 6.3 4.8-10.8 X10*3/uL [...] NRBC Abs Auto 0.000 0.0-0.012 X10*3/uL Comprehensive [place]. Panel Fa st Reviewed date:12/09/2023 08:46:55 PM Interpretation: Performing Lab:[facility], [address] [place] [phone] Notes/Report: Sodium 141 135-145 mmol/L Potassium 3.7 3.3-5.1 mmol/L Chloride 104 96-108 mmol/L Carbon Dioxide 25 22-29 mmol/L Anion Gap 16 12-20 Blood Urea Nitrogen 19 9-16 mg/dL Creatinine 1.05 0.5-1.4 mg/dL Estimated Glomerular Filt Rate 52 NOTE: For -Hungarian individuals, multiply the result by 1.210. Chronic [...] Panel Reviewed date:12/09/2023 08:05:22 PM Interpretation: Performing Lab:[address] [phone] Notes/Report: Triglycerides 173 <150 mg/dL Desirable Triglyceride: [...] t Reviewed date:12/09/2023 08:31:47 PM Interpretation: Performing Lab:[address] [phone] Notes/Report: Urine, Clean Catch Color Urine Yellow Appearance Urine Clear PH 5.5 5.0-9.0 Glucose Urine UA Negative Negative mg/dL Urine Blood Negative Negative Specific [place] - Urine 1.015 1.005-1.025 Urine Protein Negative Neg-Trace mg/dL Urine Ketones Negative Negative mg/dL Nitrite Urine Positive Negative Leukocyte Esterase Urine Trace Negative RBC Urine 0-2 0-2 /HPF WBC Urine 6-10 0-5 /HPF Squamous Epithelial Cell Urine 3-5 0-2 /HPF Bacteria Urine 4+ None Seen Hyaline Casts Urine 0-2 0-2 /LPF Hold Gold Reviewed date:06/11/2024 12:39:06 PM Interpretation: Performing Lab:[facility], [address] [place] [phone] Notes/Report: Ivelisse Neal See Note Specimen held untested for 24 hours; Call to request Chemistry testing. Liver Panel Reviewed date:06/11/2024 12:41:34 PM Interpretation: Performing Lab:[facility], [address] [place] [phone] Notes/Report: Bilirubin Total 0.3 0.0-1.0 mg/dL Bilirubin Direct 0.1 0.0-0.5 mg/dL Aspartate Amino Transferase 27 5-31 U/L Alanine Aminotransferase 16 0-31 U/L Total Protein 7.0 6.5-8.0 g/dL Albumin Level 3.9 3.5-5.0 g/dL Alkaline Phosphatase 126 39-117 U/L Lipid Panel with Reflex Reviewed date:06/11/2024 12:45:14 PM Interpretation: Performing Lab:[facility], [address] [place] [phone] Notes/Report: Triglycerides 255 <150 mg/dL Desirable Triglyceride: [...] low results in patients with liver disease. Pathology Reviewed date:07/12/2024 12:30:02 PM Interpretation: Performing Lab:[facility], [address] [facility], [place] [address] Notes/Report: REASON FOR REFERRAL No Information MEDICATIONS Medication SIG (Take, Route, Frequency, Duration) Notes Start Date End Date Status Levothyroxine Sodium 50 MCG TAKE ONE TABLET BY MOUTH EVERY MORNING ON EMPTY STOMACH ALONG WITH 200MCG TABLET FOR TOTAL 250MCG PER DAY Active Omeprazole 40 MG 1 capsule Orally Onc e a day 08/09/2017 Active ProAir HFA 108 (90 Base) MCG/ACT 2 puffs as needed Inhalation every 4 hrs for 30 days 07/26/2014 Not-Taking Irbesartan-hydroCHLOROthia zide 300-12.5 MG TAKE ONE TABLET BY MOUTH EVERY DAY for 30 Active Hyoscyamine Sulfate 0.125 MG 1 tablet as [...] Notes Problem 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) Active confirmed 114910147 Problem Tubular adenoma (D36.9) Active confirmed 098424932 Problem Diverticulitis (K57.92) Active confirmed 718192264 Problem 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 517877914 Problem Other specified menopausal and perimenopausal disorders (N95.8) Active confirmed 563827048 Problem Encounter for immunization (Z23) Active confirmed Vaccinati on given (107635217) Problem Essential hypertensi on (I10) Active confirmed 10176230 Problem Acquired hypothyroid ism (E03.9) Active confirmed 278723292 Problem Mild intermittent asthma without complication (J45.20) Active confirmed 918142755 Problem Non morbid obesity d ue to excess calories (E66.09) Active confirmed 160097725 Problem Lung nodule (R91.1) Active confirmed 78 2403406 Problem Asthmatic bronchitis , mild intermittent, uncomplicated (J45.20) Active confirmed 931746128 Problem Hiatal hernia (K44.9) Active confirmed 73050127 Problem Barretts esophagus without dysplasia (K22.70) Active confirmed 220522870 Problem Oropharyngeal dyspha francisco (R13.12) Active confirmed 53009024 Problem Esophageal stricture (K22.2) Active confirmed 87764950 Problem Pure hypercholesterolemia, unspecified (E78.00) Active confirmed 629851891 Problem Chronic idiopathic constipation (K59.04) Active confirmed 65719854 Problem Pure hypercholesterolemia (E78.00) Active confirmed 057533799 Problem Esophageal spasm (K22.4) Active confirmed 223189729 Problem 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) Active confirmed 028137218 Problem Abnormal CXR (R93.89) Active confirmed 559369907 VITAL SIGNS Blood pressure diastolic 78 mm Hg 06/18/2024 Height 65 in 06/18/2024 Blood pressure systolic 144 mm Hg 06/18/2024 Weight 241 lbs 12/20/2023 weight is down 6 pounds since 12-16-22 BMI 40.10 kg/m2 12/20/2023 weight is down 6 pounds since 12-16-22 PROCEDURES Procedure Date Ordered Date Performed Result Body Sit e Colonoscopy, Screening 07/06/2024 07/06/2024 5y repeat Encounters Encounter Location Date Provider Diagnosis Audie Haywood MD [address] [place] [id number] 12/20/2023 Audie Haywood Esophageal spasm K22 .4 ; Essential hypertension I10 ; Acquired hypothyroidism E03.9 ; Pure hypercholesterolemia E78.00 and Montoya's esophagus without dysplasia K22.70 Audie Haywood MD [address] [place] [id number] 12/09/2023 Audie Haywood Essential hypertensi on I10 and Pure hypercholesterolemia E78.00 Audie Haywood MD [address] [place] [id number] 06/11/2024 Audie Haywood Pure hypercholestero lemia E78.00 Audie Haywood MD [address] [place] [id number] 05/10/2024 Audie Haywood Encounter for immuni zation Z23 Audie Haywood MD [address] [place] [id number] 06/18/2024 Audie Haywood Essential hypertensi on I10 ; Non morbid obesity due to excess calories E66.09 ; Chronic idiopathic constipation K59.04 and Pure hypercholesterolemia E78.00 Audie Haywood MD [address] [place], [place] [id number] 12/13/2023 Audie Haywood ASSESSMENTS Encounter Date Diagnosis [...] Provider Name:Audie Keane ier, 12/18/2024 07:45:00 AM, [address], [address], [place], [place], [phone], Provider Name:Audie Shearer Lakhwinder lopezr, 12/25/2024 09:30:00 AM, [address] [facility], [address], [place], [place], [phone], Insurance Providers Payer Name Payer Address Payer Phone Subscriber Number Group Number Insured Name Patient Relationship to Insured Coverage Start Date Coverage End Date MEDICARE NHIC JUAN [address] [place] [address] [id number] Kristina Hdz Self - patient is the insured MEDEX BCBS OF [place] [address] [place] [address] [id number] Kristina Hdz Self - patient is the insured MEDICAL [...]
--- OUTSIDE RECORDS SUMMARY | 2024-07-26 15:06 | XMS_ITS ---
Author Organization Audie Haywood MD Address [address] [place], [place] [phone] Care Team Providers Care General Road Production Manager Name Role Phone Audie Haywood Primary Care Provider [phone] REASON FOR VISIT Flu vac IMMUNIZATIONS Vaccine Route Administration Date Status Comme nts Influenza High Dose IM Intramuscular 05/10/2024 Administer ed Encounters Encounter Location Date Provider Diagnosis Audie Haywood MD [address] [place], [place] [phone] 05/10/2024 Audie Haywood Encounter for immunization Z23 ASSESSMENTS Encounter Date Diagnosis Assessment Notes Treatment Notes Treatment Clinical Notes 05/10/2024 Encounter for immunization (ICD-10 - Z23) PLAN OF TREATMENT Next Appt Details Provider Name:Audie rodrigues, 12/18/2024 07:45:00 AM, [address] [place] [address], Suite [facility], [place], [place], [phone], Provider Name:Audie rodrigues, 12/25/2024 09:30:00 AM, [address] [place] [address], Suite [facility], [place], [place], [phone],
--- OUTSIDE RECORDS SUMMARY | 2024-07-26 15:06 | XMS_ITS ---
Author Organization Audie Haywood MD Address [address] [place], [place] [phone] Care Team Providers Care Small Order Cutter Name Role Phone Audie Haywood Primary Care Provider RESULTS Component Value Reference Range Notes Liver Panel Reviewed date:06/11/2024 12:41:34 PM Interpretation: Performing Lab:[facility], [address] [place] [id number] Notes/Report: Bilirubin Total 0.3 0.0-1.0 mg/dL Bilirubin Direct 0.1 0.0-0.5 mg/dL Aspartate Amino Transferase 27 5-31 U/L Alanine Aminotransferase 16 0-31 U/L Total Protein 7.0 6.5-8.0 g/dL Albumin Level 3.9 3.5-5.0 g/dL Alkaline Phosphatase 126 39-117 U/L Lipid Panel with Reflex Reviewed date:06/11/2024 12:45:14 PM Interpretation: Performing Lab:[facility], [address] [place] [id number] Notes/Report: Triglycerides 255 <150 mg/dL Desirable Triglyceride: [...] Location Date Provider Diagnosis Audie Haywood MD [address] [place] [address] [address] [place], [place] [phone] 06/11/2024 Audie Haywood Pure hypercholestero lemia E78.00 ASSESSMENTS Encounter Date Diagnosis Assessment Notes Treatment Notes Treatment Clinical Notes 06/11/2024 Pure hypercholestero lemia (ICD-10 - E78.00) PLAN OF TREATMENT Next Appt Details Provider Name:Audie rodrigues, 12/18/2024 07:45:00 AM, [address] [place] [address], [address], [place], [place], [phone], Provider Name:Audie rodrigues, 12/25/2024 09:30:00 AM, [address] [place] [address], [address], [place], [place], [phone],
== END 2024-07-26 14:17 | disposition home or self-care (01) ==
PROVIDERS: PCP Internal Medicine; Visit Provider Surgery
DX: K63.5 Polyp of colon (principal)
CPT/HCPCS: 99203

== ENCOUNTER → 2024-07-26 13:46 | Outpatient (BNVA) | payer MEDICARE, SELFPAY | PROVIDERS: PCP Internal Medicine; Visit Provider Surgery | DX: K63.5 Polyp of colon (principal) | CPT/HCPCS: 99202 ==

== ENCOUNTER 2024-09-03 11:28 | Outpatient (REF) | payer MEDICARE, SELFPAY ==
[2024-09-03] MEDS: iohexoL 350 MG/ML 75 ML INFUS..BTL 85 ML IV (12:08)
== END 2024-09-03 11:29 | disposition home or self-care (01) ==
LOC: HO.CT 11:28
PROVIDERS: Visit Provider Surgery
DX: K63.5 Polyp of colon (principal)
CPT/HCPCS: 74177; Q9967

== ENCOUNTER → 2024-09-03 11:30 | Outpatient (BNV) | payer MEDICARE, SELFPAY | PROVIDERS: Visit Provider Radiology Diagnostic Radiology | DX: K63.5 Polyp of colon (principal) | CPT/HCPCS: 74177 ==

== ENCOUNTER 2024-09-04 07:16 | Inpatient (IN) | payer MEDICARE, SELFPAY ==
--- NOTE | 2024-08-27 | ECG_ITS ---
Test Reason : PREOP Blood Pressure : */* mmHG Vent. Rate : 77 BPM Atrial Rate : 77 BPM P-R Int : 116 ms QRS Dur : 94 ms QT Int : 386 ms P-R-T Axes : 61 4 15 degrees QTcB Int : 436 ms Sinus rhythm with Premature atrial complexes Low voltage QRS Possible Inferior infarct , age undetermined Abnormal ECG No previous ECGs available Referred By: Macey Quintanilla Electronically Signed By: Ronak Gutierres
[2024-08-27 13:12] VITALS: BP 123/61; PULSE 82; RESP 16; O2SAT 96; BMI 38.2
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
[2024-08-27 14:29] LABS: Hematocrit 35.8 % (37.0-47.0); Hemoglobin 12.1 g/dl (12.0-16.0); Mean Corpuscular HGB Conc 33.8 g/dl (31.0-35.0); Mean Corpuscular Hemoglobin 28.4 pg (27.0-33.0); Mean Platelet Volume 10.7 fL (9.4-12.3); Platelet Count 174 X10*3/uL (160-400); Red Blood Count 4.26 X10*6/uL (4.20-5.50); Red Cell Distribution Width 14.3 % (11.0-16.0)
[2024-08-27 15:08] LABS: Anion Gap 14 (12-20); Blood Urea Nitrogen 25 mg/dL (9-16); Calcium 9.4 mg/dL (8.4-10.2); Carbon Dioxide 23 mmol/L (22-29); Chloride 105 mmol/L (96-108); Creatinine Clr Calc Pharmacy 62.6; Estimated Glomerular Filt Rate 54; Glucose Random 110 mg/dL (60-115); Potassium 3.6 mmol/L (3.3-5.1); Sodium 138 mmol/L (135-145)
[2024-09-04] VITALS (16 sets, daily range): BP systolic 128–165; BP diastolic 57–80; PULSE 64–73; RESP 12–20; TEMP 36.1–37.1; O2SAT 94–98; BMI 39.2; BMI 40.5
[2024-09-04] MEDS: Lactated Ringers 1,000 ML 100 ML IVCONT ×2 (07:08→16:50)
--- NOTE | 2024-09-04 07:18 | MHC.SHP ---
Pre-Procedural Eval Section A - 24 Hr Update-Section A only Date of Service: 09/04/24 Section B - Complete if H&P > 30 days Chief Complaint: Polyp of colon Details of Present Illness: Has endoscopically unresectable polyp in the appendiceal orifice Relevant Family History (Specify if Yes): No Relevant Social History: None Present Medications: see Short Stay Collaborative assessment Medical History: Significant History (Morbidly obese) Allergies: Allergies Allergy/AdvReac Type Severity Reaction Status Date / Time latex Allergy Intermediate Rash Verified 09/04/24 06:37 codeine Allergy Mild Nausea Verified 09/04/24 06:37 Penicillins [PCN] Allergy Mild HIVES Verified 09/04/24 06:37 Sulfa (Sulfonamide Allergy Mild HIVES Verified 09/04/24 06:37 Antibiotics) [SULFA (SULFONAMIDE ANTIBIOTICS)] Review of Systems Sugical H&P ROS: Negative: Constitution, Cardiovascular and Respiratory Exam Surgical H&P Exam: Normal: Heart, Normal: Lungs and Normal: Abdomen Plan Diagnosis/Plan: Unchanged I have reviewed the history and physical and performed a pertinent physical examination on my patient. No changes have occurred unless specified. Plan is to do limited resection of the right colon Time Spent With Patient Time: Total time managing care of this patient today ____ minutes.
--- OUTSIDE RECORDS SUMMARY | 2024-09-04 07:25 | XMS_ITS ---
Author Organization [facility] Address [address] [place] [address] Care Team Providers Care Outside Salesman Name Role Phone Audie Haywood MD Primary Care Provider Brian Jolly [phone] REASON FOR VISIT Appendiceal orifice polyp Encounters Encounter Location Date Provider Diagnosis [facility] [address] [place] [address] 07/11/2024 Brian Banuelos PLAN OF TREATMENT No Information
--- OUTSIDE RECORDS SUMMARY | 2024-09-04 07:25 | XMS_ITS ---
Author Organization [facility] Address [address] [place] [address] Care Team Providers Care Audio/Video Technician Name Role Phone Yobany DE GUZMAN, Audie Primary Care Provider Brian Jolly Unavailable [phone] ALLERGIES Allergen (clinical drug ingredient) Drug/Non Drug [...] confirmed Screening for malignant neoplasm of colon (456063784) Problem Dysphagia (R13.10) Active confirmed Dys phagia (51065102) Problem Gastroesophageal reflux disease with esophagitis without hemorrhage (K21.00) Active confirmed Gastroes ophageal reflux disease with esophagitis (disorder) (676949850) VITAL SIGNS BMI 42.79 kg/m2 03/23/2024 Blood pressure systolic 000 mm Hg 03/23/20 24 Blood pressure diastolic 00 mm Hg 024 Height 63.75 in 03/23/2024 Temperature 97.5 degrees Fahrenheit 03/23/20 24 Weight 247 lb 6 oz lbs 03/23/2024 Encounters Encounter Location Date Provider Diagnosis [facility] [address] [place] [address] 03/23/2024 Brian Banuelos Barretts esophagus without dysplasia [...]
--- OUTSIDE RECORDS SUMMARY | 2024-09-04 07:25 | XMS_ITS ---
Author Organization Audie Haywood MD Address [address] [place], [place] [phone] Care Team Providers Care Closing Manager Name Role Phone Audie Haywood Primary Care Provider Allergies Allergen (clinical drug ingredient) Drug/Non Drug Allergy documented on EMR Reaction Allergy Type Onset Date Status penicillin G Penicillin G Sodium hives Drug Allergy Active sulfamethoxazole / trimethoprim Bactrim hives Drug Allergy Active codeine codeine (uncoded) hives Allergy Ac tive REASON FOR VISIT 6 month Medications Medication SIG (Take, Route, Frequency, Duration) Notes [...] ON AN EMPTY STOMACH for 90 Active Vital Signs Blood pressure systolic 144 mm Hg 06/18/20 24 Blood pressure diastolic 78 mm Hg 024 Height 65 in 06/18/2024 Encounters Encounter Location Date Provider Diagnosis Audie Haywood MD [address] [place] [address] [place] [phone] 06/18/2024 Audie Haywood Essential hypertensi on I10 ; Non morbid obesity due to excess calories E66.09 ; Chronic idiopathic constipation K59.04 and Pure hypercholesterolemia E78.00 Assessments Encounter Date Diagnosis (ICD Code) Assessment Notes Treatment Notes Treatment Clinical Notes Section Notes 06/18/2024 Essential hypertensi on (ICD-10 - I10) well controlled 06/18/2024 Non morbid obesity d ue to excess calories (ICD-10 - E66.09) remains stable/ feels she lost 5 pounds since she is having bowel movements 06/18/2024 Chronic idiopathic constipation (ICD-10 - K59.04) doing much better with new pro and pre and other biiotics 06/18/2024 Pure hypercholesterolemia (ICD-10 - E78.00) doing well on meds.. won't take Plan Of Treatment Treatment Notes Assessment Notes Essential hypertension well controlled Non morbid obesity due to excess calorie s remains stable/ feels she lost 5 pounds since she is having bowel movements Chronic idiopathic constipation doing mu ch better with new pro and pre and other biiotics Pure hypercholesterolemia doing well on meds.. won't take Next Appt Details Provider Name:Audie rodrigues, 12/18/2024 07:45:00 AM, [address] [place] [address], [address], [place], [place], [phone], Provider Name:Audie rodrigues, 12/25/2024 09:30:00 AM, [address] [place] [address], [address], [place], [place], [phone], Progress Notes * Gerald FRYOB:[birth year] (69 yo F)Acc No.[id number]:06/18/2024 Progress Notes Patient:?Kristina Fry Provider:?Audie Haywood MD :1955???Age:69 Y???Sex:Female D ate:06/18/2024 Address:[address] [place], [place] [address] Subjective: * Chief Complaints: * ???6 month * HPI: ???Symptom(s):? patient is A 69 yo female here for follow up. saw count includes the [facility]. * ROS:?General/Constitutional:?Denies?Chills.?Denies?Fatigue.?Denies?Fever.?Denies?Headache.?ENT:?Patient denies?decreased sense of smell , any loss of taste , sore throat.?Denies?Sore throat.?Respiratory:?Denies?Cough.?Denies?Shortness of breath at rest.?Denies?Shortness of breath with exertion.?Gastrointestinal:?Denies?Diarrhea.?Denies?Nausea.?Musculoskeletal:?Patient denies?muscle aches.?Peripheral Vascular:?Patient denies?red and blue toes.? * Medical History:? * Surgical History:? * Hospitalization/Major Diagno stic Procedure:? * Medications:?TakingChromium Picolinate 500 MCG Capsule as directed Orally Hyoscyamine Sulfate 0.125 MG Tablet 1 tablet as needed Orally Four times a day as neededOmeprazole 40 MG Capsule Delayed Release 1 capsule Orally Once a dayIrbesartan-hydroCHLOROthiazide 300-12.5 MG Tablet TAKE ONE TABLET BY MOUTH EVERY DAY Levothyroxine Sodium 50 MCG Tablet TAKE ONE TABLET BY MOUTH EVERY MORNING ON EMPTY STOMACH ALONG WITH 200MCG TABLET FOR TOTAL 250MCG PER DAY Synthroid 200 MCG Tablet TAKE ONE TABLET BY MOUTH EVERY DAY IN THE MORNING ON AN EMPTY STOMACH amLODIPine Besylate 5 MG Tablet TAKE ONE TABLET BY MOUTH EVERY DAY Pravastatin Sodium 40 MG Tablet TAKE ONE TABLET BY MOUTH EVERY DAY Taking Chromium Picolinate 500 MCG Capsule as directed Orally Taking Hyoscyamine Sulfate 0.125 MG Tablet 1 tablet as needed Orally Four times a day as neededTaking Omeprazole 40 MG Capsule Delayed Release 1 capsule Orally Once a dayTaking Irbesartan-hydroCHLOROthiazide 300- 12.5 MG Tablet TAKE ONE TABLET BY MOUTH EVERY DAY Taking Levothyroxine Sodium 50 MCG Tablet TAKE ONE TABLET BY MOUTH EVERY MORNING ON EMPTY STOMACH ALONG WITH 200MCG TABLET FOR TOTAL 250MCG PER DAY Taking Synthroid 200 MCG Tablet TAKE ONE TABLET BY MOUTH EVERY DAY IN THE MORNING ON AN EMPTY STOMACH Taking amLODIPine Besylate 5 MG Tablet TAKE ONE TABLET BY MOUTH EVERY DAY Taking Pravastatin Sodium 40 MG Tablet TAKE ONE TABLET BY MOUTH EVERY DAY Not-Taking/PRNHydrocortisone John-Pramoxine 2.5-1 % Cream 1 application as needed Externally Three times a dayCiclopirox 0.77 % Gel 1 application Externally Twice a dayEstradiol 0.1 MG/GM Cream as directed Vaginal dailyProAir HFA 108 (90 Base) MCG/ACT Aerosol Solution 2 puffs as needed Inhalation every 6 hrsValtrex 1 GM Tablet 2 tablet Orally twice a dayProAir HFA 108 (90 Base) MCG/ACT Aerosol Solution 2 puffs as needed Inhalation every 4 hrsNot-Taking/PRN Hydrocortisone John-Pramoxine 2.5-1 % Cream 1 application as needed Externally Three times a dayNot-Taking/PRN Ciclopirox 0.77 % Gel 1 application Externally Twice a dayNot-Taking/PRN Estradiol 0.1 MG/GM Cream as directed Vaginal dailyNot- Taking/PRN ProAir HFA 108 (90 Base) MCG/ACT Aerosol Solution 2 puffs as needed Inhalation every 6 hrsNot-Taking/PRN Valtrex 1 GM Tablet 2 tablet Orally twice a dayNot- Taking/PRN ProAir HFA 108 (90 Base) MCG/ACT Aerosol Solution 2 puffs as needed Inhalation every 4 hrs * Allergies:?Penicillin G Sodi um: hivesBactrim: hivescodeine: hivesyes[Allergies Verified] Objective: * Vitals:?Ht: 65, BP:144/78. * ???Past Orders: ???Lab:Liver Panel (Order Da te - 06/11/2024) (Collection Date - 06/11/2024) ? Value Reference Range ?Bilirubin Total 0.3 0.0- 1.0 - mg/dL ?Bilirubin Direct 0.1 0.0 -0.5 - mg/dL ?Aspartate Amino Transferase 27 5-31 - U/L ?Alanine Aminotransferase 16 0-31 - U/L ?Total Protein 7.0 6.5-8. 0 - g/dL ?Albumin Level 3.9 3.5-5. 0 - g/dL ?Alkaline Phosphatase 126 H 39-117 - U/L ???Lab:Lipid Panel with Refl ex (Order Date - 06/11/2024) (Collection Date - 06/11/2024) ? Value Reference Range ?Triglycerides 255 H <150 - mg/dL ?Cholesterol 218 H <200 - m g/dL ?LDL Cholesterol Calculated 112 H <100 - mg/dL ?HDL Cholesterol 55 >40 - mg/dL * Examination: ???General Examination: ?GENERAL APPEARANCE:?well developed, well nourished.?HEAD:?normocephalic.?SKIN:?good turgor.?HEART:?regular rate and rhythm , no murmurs, rubs, gallops.?LUNGS:?no wheezes, rales, rhonchi , good air movement , clear to auscultation bilaterally.? Assessment: * Assessment: 1.?Essential hypertension - I10?2.?Non morbid obesity due to excess calories - E66.09?3.?Chronic idiopathic constipation - K59.04?4.?Pure hypercholesterolemia - E78.00? Plan: * Treatment: 2.?Non morbid obesity due to excess calories? Notes: remains stable/ feels she lost 5 pounds since she is having bowel movements?? 3.?Chronic idiopathic consti pation? Notes: doing much better with new pro and pre and other biiotics?? 4.?Pure hypercholesterolemia ? Notes: doing well on meds.. won't take?? * Procedure Codes:? * * Sign off status: Completed true * Provider:?Audie Haywood MD Date:?1 08/18/2023 Generated for Alex taylor/Radha/Hersonsmitting on:?09/04/2024 07:25 AM EST History and Physical Notes * HPI (History of Present Illness) Category Sub-Category Detail Notes Category Not es Symptom(s) patient is A 69 yo female here for follow up. saw infomermercial. Examination Category Sub-Category Detail Notes Category Not es General Examination GENERAL APPEARANCE: well developed , well nourished HEAD: normocephalic HEART: regular rate and rhy thm , no murmurs, rubs, gallops LUNGS: no wheezes, rales, r honchi , good air movement , clear to auscultation bilaterally SKIN: good turgor
--- OUTSIDE RECORDS SUMMARY | 2024-09-04 07:25 | XMS_ITS ---
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
--- OUTSIDE RECORDS SUMMARY | 2024-09-04 07:26 | XMS_ITS | Patient Health Record ---
Author Organization [facility] Address [address] [place] [address] Care Team Providers Care Regional Maintenance Manager Name Role Phone Audie Haywood MD Primary Care Provider Brian Jolly Unavailable [phone] ALLERGIES Allergen (clinical drug ingredient) Drug/Non Drug Allergy documented on EMR Reaction Allergy Type Onset Date Status Sulfa Unknown Drug Allergy Active Penicillin Unknown Drug Allergy Active Codeine Phosphate Unknown Drug Allergy Active RESULTS Component Value Reference Range Notes Pathology (Not yet reviewed by provider) Interpretation: Performing Lab:[facility], [address] [place] [phone] Notes/Report: REASON FOR REFERRAL Reason serrated polyp Diagnosis 1 Serrated polyp of co jf (K63.5) Referral Organization [facility] Referring Provider First Name Brian Referring Provider Last Name Lakisha Referring Provider Speciality Elizabeth churchill Referred Provider Nash Hand Referred Provider Specialty [...] confirmed Screening for malignant neoplasm of colon (342990746) Problem History of adenomatous polyp of colon (Z86.010) Active confirmed 353593011 Problem Diverticulosis of large intestine without perforation or abscess without bleeding (K57.30) Active confirmed Diverticul ar disease of colon (469475342) Problem Dysphagia (R13.10) Active confirmed Dys phagia (43509538) Problem Gastroesophageal reflux disease (K21.9) Active confirmed Gastroesophagea l reflux disease (429036052) Problem Gastroesophageal reflux disease without esophagitis (K21.9) Active confirmed 399868252 Problem Barretts esophagus without dysplasia (K22.70) Active confirmed 944438881 Problem Gastric polyps (K31.7) Active confirmed Benign neoplasm of stomach (45243566) Problem GERD with esophagitis (K21.0) Active confirmed 349009523 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 Montoya esophag us (812869053) Problem Irritable bowel syndrome, unspecified type (K58.9) Active confirmed 84668237 Problem Gastroesophageal reflux disease with esophagitis without hemorrhage (K21.00) Active confirmed Gastroes ophageal reflux disease with esophagitis (disorder) (172510658) VITAL SIGNS Temperature 97.5 degrees Fahrenheit 03/23/2024 Blood pressure diastolic 00 mm Hg 03/23/2024 Height 63.75 in 03/23/2024 Blood pressure systolic 000 mm Hg 03/23/2024 Weight 247 lb 6 oz lbs 03/23/2024 BMI 42.79 kg/m2 03/23/2024 Encounters Encounter Location Date Provider Diagnosis [facility] [address] [place] [phone] 07/06/2024 Brian Banuelos Colon cancer screeni ng Z12.11 ; Colon polyps K63.5 ; Rectal polyp K62.1 ; Diverticulosis of large intestine without perforation or abscess without bleeding K57.30 ; Other hemorrhoids K64.8 ; Montoya esophagus K22.70 ; Hiatal hernia K44.9 ; Gastric polyps K31.7 ; Gastroesophageal reflux disease K21.9 and Dysphagia R13.10 [facility] [address] [place] [phone] 03/23/2024 Brian Banuelos Barretts esophagus without dysplasia K22.70 ; History of adenomatous polyp of colon Z86.010 ; GERD with esophagitis K21.0 ; Irritable bowel syndrome, unspecified type K58.9 ; Encounter for screening for malignant neoplasm of colon Z12.11 and Dysphagia R13.10 [facility] [address] [place] [phone] 07/11/2024 Brian Banuelos ASSESSMENTS Encounter Date Diagnosis [...] NUC HIDA SCAN 12/18/2012 US ABD 12/05/2012 Pathology 07/06/2024 Future Test Test Name Order Date UPPER GI ENDOSCOPY 01/15/2016 UPPER GI ENDOSCOPY BALLOOON DILATION OF ESOPH 03/23/2024 COLONOSCOPY 03/23/2024 Insurance Providers Payer Name Payer Address Payer Phone Subscriber Number Group Number Insured Name Patient Relationship to Insured Coverage Start Date Coverage End Date MEDICARE OF [place] [address] [place] [address] [phone] [id number] EFRA FRY Self - patient is the insured [employer] ATTN CLAIMS [address] [place] [address] [phone] [id number] EFRA FRY Self - patient is the insured MEDICAL (GENERAL) HISTORY Medical History History ICD Code Upper endoscopy 09-24-2009-hea led esophagitis, large hiatal hernia; EGD in 2006 and 2002 with erosive esophagitis History of an esophageal ring/stricture dilated with Dr. 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 Smart at [facility] in 2002 EGD in 08/2012 with finding o f a small area of Montoya's esophagus, neg. dysplasia--moderate sized HH-esophageal ring dilated with a 20mm balloon 2006-neg. U/S and CT of abdomen at [facility] Colonoscopy in 07/2013 with r emoval [...]
--- OUTSIDE RECORDS SUMMARY | 2024-09-04 07:26 | XMS_ITS ---
Author Organization Audie Haywood MD Address [address] [place], [place] [phone] Care Team Providers Care Coal Trimmer Machine Operator Name Role Phone Audie Haywood Primary Care Provider Results Component Value Reference Range Notes Liver Panel Reviewed date:06/11/2024 12:41:34 PM Interpretation: Performing Lab:[facility], [address] [place] [phone] Notes/Report: Bilirubin Total 0.3 0.0-1.0 mg/dL Bilirubin Direct 0.1 0.0-0.5 mg/dL Aspartate Amino Transferase 27 5-31 U/L Alanine Aminotransferase 16 0-31 U/L Total Protein 7.0 6.5-8.0 g/dL Albumin Level 3.9 3.5-5.0 g/dL Alkaline Phosphatase 126 39-117 U/L Lipid Panel with Reflex Reviewed date:06/11/2024 12:45:14 PM Interpretation: Performing Lab:[facility], [address] [place] [phone] Notes/Report: Triglycerides 255 <150 mg/dL Desirable Triglyceride: [...] Location Date Provider Diagnosis Audie Haywood MD [address] [place] [address] [address] [place], [place] [phone] 06/11/2024 Audie Haywood Pure hypercholestero lemia E78.00 Assessments Encounter Date Diagnosis (ICD Code) Assessment Notes Treatment Notes Treatment Clinical Notes Section Notes 06/11/2024 Pure hypercholesterolemia (ICD-10 - E78.00) Plan Of Treatment Next Appt Details Provider Name:Audie rodrigues, 12/18/2024 07:45:00 AM, [address] [place] [address], Suite [facility], [place], [place], [phone], Provider Name:Audie rodrigues, 12/25/2024 09:30:00 AM, [address] [place] [address], [address], [place], [place], [phone], Progress Notes * La FRYeDOB:[birth year] (69 yo F)Acc No.[id number]:06/11/2024 Progress Note Patient:Kristina MARQUEZ Provider:?Audie Haywood MD :1955???Age:69 Y???Sex:Female D ate:06/11/2024 Address:[address] [place] [address] Subjective: * Chief Complaints: * ???1. Fasting lipids. * Medical History:? Objective: * Vitals:? Assessment: * Assessment: 1.?Pure hypercholesterolemia - E78.00 (Primary)??? Plan: * Treatment: * Procedure Codes:?85001 VENIP UNCT, ROUTINE* * * The named appointment provid er may or may not be the originator of this progress note, and it is not deemed complete until electronically signed by the appointment provider. Sign off status: Pending * Provider:?Audie Haywood MD Date:?1 08/11/2023 Generated for Alex taylor/Radha/Prakash on:?09/04/2024 07:25 AM EST
--- OUTSIDE RECORDS SUMMARY | 2024-09-04 07:26 | XMS_ITS | Clinical Summary ---
Author Organization [facility] Address [address] [place] [address] Care Team Providers Care Doughnut Icer Name Role Phone Audie Haywood MD Primary Care Provider [phone] Allergies Active Allergy Reactions Criticality Noted Date Comments Latex 09/23/2020 Penicillins 09/23/2020 Medications Medication Sig Dispensed Refills Start Date End Date Status irbesartan-hydroCHLORO thiazide (AVALIDE) 300-12.5 MG per tablet TAKE ONE TABLET BY MOUTH EVERY DAY 0 09/05/2020 Active levothyroxine (SYNTHROID, LEVOXYL) tablet 25 mcg 0 09/18/2020 Active SYNTHROID 200 MCG tablet Take 200 mcg by mouth every morning. on an empty stomach 0 08/14/2020 Active pravastatin (PRAVACHOL) tablet 40 mg Take 40 mg by mouth daily. 0 09/05/2020 Active Melatonin 1 MG TABS tablet Take 1 mg by mouth every night at bedtime. 0 Active KRILL OIL PO Take by mouth. 0 Active TURMERIC PO Take by mouth. 0 Active ibuprofen (ADVIL,MOTRIN) 200 MG tablet Take 200 mg by mouth every 6 (six) hours as needed for pain. 0 Active omeprazole (PriLOSEC) 20 MG capsule Take 20 mg by mouth daily. 0 Active Multiple Vitamins-Minerals (PRESERVISION AREDS 2 PO) Take by mouth. 0 Active Family History Medical History Relation Name Comments Cancer Father Cancer Mother Diabetes Mother Hypertension Mother Relation Name Status Comments Father Mother Social History Tobacco Use Types Packs/Day Years Used Date Smoking Tobacco: Never Assessed Sex and Gender Information Value Date Recorded Sex Assigned at Not on file Gender Identity Not on file Sexual Orientation Not on file Job Start Date Occupation Industry Not on file Not on file Not on file Last Filed Vital Signs Vital Sign Reading Time Taken Comments Blood Pressure - - Pulse - - Temperature - - Respiratory Rate - - Oxygen Saturation - - Inhaled Oxygen Concentration - - Weight 99.8 kg (220 lb) 11/07/2020 1:54 PM EDT Height 165.1 cm (5' 5 ) 11/07/2020 1:54 PM EDT Body Mass Index 36.61 11/07/2020 1:54 PM EDT Plan of Treatment Health Maintenance Due Date Last Done Comments Hepatitis C Screening 1955 COVID-19 Vaccine (#1) 1955 Depression Screening 1966 BMI Counseling 1972 Preventative Health Evaluation 1972 DTap / Tdap / Td (1 - Tdap) 1973 Colon Cancer Screening (Colonoscopy) 1999 Breast Cancer Screening (Mammogram) 2004 Shingrix-Zoster Vaccine (1 of 2) 2004 Fall Risk Assessment 2019 Osteoporosis Screening (DEXA Scan) 2019 Pneumococcal Vaccine (1 of 1 - PCV) 2019 Influenza Vaccine (#1) 2024 RSV Adult > 60+ Yrs or Pregn ant (1 - 1-dose 75+ series) 2029 Hepatitis B Vaccines Aged Out No long er eligible based on patient's age to complete this topic RSV Ped < 20 months Aged Out No longe r eligible based on patient's age to complete this topic Care Teams Doughnut Icer Relationship Specialty Start Date End Date Audie Haywood MD [address] [place] [address] PCP - General Internal Medicine 07/28/20
--- NOTE | 2024-09-04 09:22 | P.OP_ITS ---
Operative Note Operative Note Date of Service: 09/04/24 Narrative: Preop diagnosis: Cecal polyp Postop diagnosis: The same Procedure: Hand assisted laparoscopic limited right colon resection, lysis of adhesions of adherent omentum in the pelvis Surgeon: Nash Hand MD engineer assistant: RASHID Davis The patient is a 69-year-old female referred to me for a polyp at the appendiceal orifice. This was a serrated adenoma on pathology. This could not be endoscopically removed. I explained to her the technique of the planned procedure. She understood the risks including but not limited bleeding, infections, staple line leak, as well as the benefits and alternatives and she had given consent She was brought to the operating room. She was placed supine under general anesthesia via endotracheal tube. A TAP block and a rectus sheath block were done by the anesthesiologist. A Mcconnell catheter was inserted The abdomen was then prepped and draped in the usual sterile fashion. A surgical time-out was done. The patient received Cefotan 2 g IV preoperatively I made a short midline incision in the periumbilical area with a blade 15. This was carried down with electrocautery through the full-thickness of the skin and subcutaneous fat. Please note that the patient was morbidly obese and we had to go through thick amount of subcutaneous fat to expose the fascia. The fascia was incised. The peritoneum was entered. There were no adhesions surrounding the fascia. The Vel wound retractor was therefore positioned. We attached the GelPort to the wound retractor along with the insufflating port. We insufflated to a pressure of 15 mm Hg. We examined laparoscopically with a 10 mm 0 degree scope. There was note of significant adhesions in the pelvis and this was pulling the omentum down into the pelvis. With laparoscopic visualization I inserted a 5/12 mm port in the epigastric area below the subcostal margin. We moved the laparoscope into this and removed the insufflating port. I also inserted a 5 mm port in the left upper quadrant t hrough a small stab incision. With laparoscopic visualization I proceeded to do lysis of adhesions at the pelvis in view of large amounts of omentum stuck on this area from her previous surgeries. This part of the procedure took some time until we are able to release this. This allowed us to free up the omentum and move this away from the pelvis and allow exposure of the cecum The patient was then placed in a [id number] position. This allowed me to reflect the bowel loops away from the right side and he was the right colon and cecum. I then mobilized the right colon by dividing the ligamentous attachments along the white line of Toldt. The appendix was adherent to the sidewall as well as went to do some lysis of adhesions free this up I continued to do gentle dissection of the retroperitoneum of the right colon until we visualize the duodenum. This therefore are medial limit of our dissection We continued to gently mobilize the right colon off the retroperitoneum until it appeared that we had adequate length and mobilization all the way to the distal ileum I therefore desufflated. I able to pull up the entire right colon along with the terminal ileum through the wound retractor. I could not feel the clip in the cecum but this had been clearly located with visualization endoscopically by the jewelry store manager at the appendiceal orifice I chose my point of resection in the terminal ileum. I created a mesenteric window and divided this with a REED 60 mm stapler Since this was a small polyp of the cecum with the benign pathology, I decided to do a limited right colon resection by just removing the colon at the mid part. I chose my point of dissection created a mesenteric window. I used the REED 80 mm stapler to divide the right colon just past the cecum. I divided the attached mesentery using the LigaSure from both distal and proximal until I was able to identify the pedicle. I applied across the pedicle and divided this between clamps. I doubly ligated the pedicle. We noted good hemostasis I then opened up the apex of each staple line. I aligned the mesenteric border of the ileal stump in the right colon stump. I positioned each arm of the REED 60 mm stapler at the anti mesenteric side the lumen. I made sure that there were no bowel loops caught by the staplers and this was fired. We completed the anastomosis by closing the enterotomy with a TA 60 mm stapler I examined the staple lines and this appeared to be intact. There was no signs of any ischemia on the anastomosis . There was note of good hemostasis. I reinforced the crotch of the staple line with a seromuscular Polysorb 3-0 stitch I then closed the mesenteric defect with a running Polysorb 3-0 stitch Once adequate hemostasis and good apply was confirmed, I replaced this anastomotic site back into the peritoneal cavity. We proceeded to insufflate and examined laparoscopically. All 4 quadrants were examined there was no evidence of any bowel injury or any other pathology I positioned the omentum to overlie the area of the anastomosis I desufflated. We closed the fascia with a running Maxon 1 stitch . We examined the history closure laparoscopically and there were no bowel loops caught by the sutures All ports were therefore removed and the peritoneum desufflated. Skin closure was achieved on all incisions with subcuticular 4-0 Polysorb sutures Dressings were applied. The procedure was completed The patient tolerated the procedure well. There were no immediate complications. Initial and final counts of sponges and instruments were correct. Estimated blood loss was about 25 cc. The patient was extubated without difficulty and transferred to the recovery room with stable vital signs.
[2024-09-04] MEDS: HYDROmorphone HCl 0.5 MG/0.5 ML SYRINGE IVPUSH (11:57)
--- NOTE | 2024-09-04 13:26 | PHA.MEDREC ---
Addendum entered by Vitaliy Gruber RPh 09/04/24 13:36: Med rec was reviewed by [facility]. Original Note: Pharmacy Consult ? Medication Reconciliation Pharmacy has reviewed the medication reconciliation done by nursing. Spoke to patient to confirm med list. Patient confirmed she is taking Amlodipine bes 5 mg daily NOT Amlodipine -Benazepril. Corrected me rec.
--- NOTE | 2024-09-04 14:39 | PM.EVENT ---
Event Note Date of Service: 09/04/24 Event Note: Seen on afternoon postop Status post limited right colon resection She is sitting up on the recliner Says she is sore on incision but otherwise seems to have good control of pain She looks well Good urine output Stable vital signs Pain management Instructed on incentive spirometry Time Spent With Patient Time: Total time managing care of this patient today ____ minutes.
[2024-09-04] MEDS: Acetaminophen 1,000 MG/100 ML PIGGYBACK 400 MG IV ×2 (16:44→21:34)
[2024-09-04] MEDS: Morphine Sulfate 4 MG/ML CARTRIDGE IVPUSH (16:57)
[2024-09-04] MEDS: 0.9 % Sodium Chloride Flush 3 ML SYRINGE IVFLUSH ×2 (17:07→21:36)
[2024-09-04] MEDS: oxyCODONE HCl Immed Release 5 MG TABLET PO (23:54)
--- NOTE | 2024-09-05 00:17 | PC.NURSE ---
Dr. Chin notified about continuing Mcconnell, new orders placed.
[2024-09-05] MEDS: Calcium Carbonate 750 MG TAB.CHEW PO (01:21)
[2024-09-05] MEDS: Lactated Ringers 1,000 ML 100 ML IVCONT (02:44)
[2024-09-05] MEDS: Acetaminophen 1,000 MG/100 ML PIGGYBACK 400 MG IV ×4 (02:44→20:31)
[2024-09-05] MEDS: Omeprazole 40 MG CAPSULE.DR PO (06:02)
[2024-09-05] MEDS: Levothyroxine Sodium 200 MCG TABLET PO (06:02)
[2024-09-05] MEDS: Levothyroxine Sodium 50 MCG TABLET PO (06:02)
--- NOTE | 2024-09-05 06:43 | PM.PNGS ---
Subjective Subjective Date of Service: 09/05/24 <Cvipps-AN-Raokkxa-Ah Esa - Last Filed: 09/05/24 06:52> 09/05/24 <Amy Davis PA-C - Last Filed: 09/05/24 08:59> 09/05/24 <Nash Hand MD - Last Filed: 09/05/24 10:12> Interval history: Patient seen and examined this morning. States she feels much better from last night. Currently only having incision pain. Has been passing gas, but no bowel movement. Feels bloated. Tolerating clear liquids. Has been OOB. Denies chest pain, shortness of breath, nausea or vomiting. <Xwciaf-VD-Konomfd-Ah Esa - Last Filed: 09/05/24 06:52> Physical Exam Vital Signs: Vital Signs: Last Vital Signs Temp 97.5 F 09/04/24 23:49 Pulse 69 09/04/24 23:49 Resp 18 09/04/24 23:49 BP 131/66 09/04/24 23:49 Pulse Ox 97 09/04/24 23:49 O2 Del Method Nasal Cannula 09/04/24 23:49 O2 Flow Rate 2 09/04/24 23:49 BMI result Body Mass Index 40.5 <[facility] - Last Filed: 09/05/24 06:52> Const: Other: Laying in bed, awake, calm, in no acute distress, orientaed x3. <[facility] - Last Filed: 09/05/24 06:52> Orientation/consciousness: patient oriented x3 <Amy Davis PA-C - Last Filed: 09/05/24 08:59> Resp: Effort & Inspection: normal respiratory effort and able to speak in complete sentences <[facility] - Last Filed: 09/05/24 06:52> Auscultation: clear to auscultation bilaterally <[facility] - Last Filed: 09/05/24 06:52> Cardio: Other: Regular rate and rhythm <[facility] - Last Filed: 09/05/24 06:52> GI: Other: Abdomen is soft, non distended, tenderness to incision site. Dressings intact. <Wyrpum-LG-Pooyzbr-Ah Mendez - Last Filed: 09/05/24 06:52> Other: Abdomen is soft, non distended, mild tenderness to incision site. Dressings intact. <Amy Davis PA-C - Last Filed: 09/05/24 08:59> : Other: Harris catheter in place. <Vjqjao-RV-Jaqcjfe-Ah Mendez - Last Filed: 09/05/24 06:52> Skin: General skin exam: no rashes or lesions noted <Amy Davis PA-C - Last Filed: 09/05/24 08:59> Neuro: General: patient oriented x3 <Amy Davis PA-C - Last Filed: 09/05/24 08:59> Extrem: Other: Moving all extremities normally. No lower extremity edema noted. <[facility] - Last Filed: 09/05/24 06:52> Objective Data Active Medications Amlodipine Besylate (Amlodipine Besylate 5 Mg Tablet) 5 mg PO DAILY [facility] Calcium Carbonate (Calcium Carbonate 750 Mg Tab.Chew) 750 mg PO Q4H PRN PRN Reason: Heartburn Last Admin: 09/05/24 01:21 Dose: 750 mg Documented By: MÓNICA Heparin Sodium (Porcine) (Heparin Sodium,Porcine 5,000 Unit/Ml Vial) 5,000 unit SUBCUT Q8H [facility] Hydrochlorothiazide (Hydrochlorothiazide 12.5 Mg Tablet) 12.5 mg PO DAILY [facility] Lactated Ringer's (Lr) 1,000 mls @ 100 mls/hr IVCONT .Q10H [facility] Last Admin: 09/05/24 02:44 Dose: 100 mls/hr Documented By: MÓNICA Acetaminophen (Ofirmev) 1,000 mg in 100 mls @ 400 mls/hr IV Q6H [facility] Last Infusion: 09/05/24 02:59 Dose: Infused Documented By: MÓNICA Levothyroxine Sodium (Levothyroxine Sodium 50 Mcg Tablet) 50 mcg PO DAILY@0600 [facility] Last Admin: 09/05/24 06:02 Dose: 50 mcg Documented By: MÓNICA Levothyroxine Sodium (Levothyroxine Sodium 200 Mcg Tablet) 200 mcg PO DAILY@0600 [facility] Last Admin: 09/05/24 06:02 Dose: 200 mcg Documented By: MÓNICA Magnesium Hydroxide (Milk Of Magnesia 30 Ml Oral.Susp) 30 ml PO DAILY PRN PRN Reason: Constipation Melatonin (Melatonin 3 Mg Tablet) 6 mg PO BEDTIME PRN PRN Reason: Insomnia Morphine Sulfate (Morphine Sulfate 4 Mg/Ml Cartridge) 4 mg IVPUSH Q3H PRN; Protocol PRN Reason: Pain, Severe (Pain Scale 7-10) Last Admin: 09/04/24 16:57 Dose: 4 mg Documented By: ALEJANDRA Omeprazole (Omeprazole 40 Mg Capsule.Dr) 40 mg PO DAILY@0630 [facility] Last Admin: 09/05/24 06:02 Dose: 40 mg Documented By: MÓNICA Ondansetron HCl (Ondansetron Hcl 4 Mg/2 Ml Vial) 4 mg IVPUSH Q6H PRN PRN Reason: Nausea and Vomiting Oxycodone HCl (Oxycodone Hcl Immed Release 5 Mg Tablet) 5 mg PO Q4H PRN PRN Reason: Pain, Moderate(Pain Scale 4-6) Last Admin: 09/04/24 23:54 Dose: 5 mg Documented By: MÓNICA Pravastatin Sodium (Pravastatin Sodium 40 Mg Tablet) 40 mg PO DAILY [facility] Sodium Chloride (0.9 % Sodium Chloride Flush 3 Ml Syringe) 3 ml IVFLUSH QSHIFT [facility] Last Admin: 09/04/24 21:36 Dose: 3 ml Documented By: MÓNICA Valsartan (Valsartan 80 Mg Tablet) 80 mg PO DAILY [facility] <Suxdth-VM-Yelswom-Ah Esa - Last Filed: 09/05/24 06:52> Labs CBC & Chem 7: 09/05/24 05:25 09/05/24 05:25 <[facility] - Last Filed: 09/05/24 06:52> Procedures Date of Service Date of Service: 09/05/24 <[facility] - Last Filed: 09/05/24 06:52> 09/05/24 <Amy aDvis PA-C - Last Filed: 09/05/24 08:59> 09/05/24 <Nash Hand MD - Last Filed: 09/05/24 10:12> Progress Note: A&P Assessment and plan (1) Cecal polyp: Status: Acute <Marcie Simms - Last Filed: 09/05/24 06:52> Assessment and Plan: Status post right colon resection Tolerating clear liquids says she is passing flatus adequate pain control Ambulating Likely advance diet later on today Continue pain management Seen and examined independently <Nash Hand MD - Last Filed: 09/05/24 10:12> (2) S/P right colectomy: Status: Acute <Marcie Simms - Last Filed: 09/05/24 06:52> Assessment and Plan: Patient is POD#1 s/p Hand assisted laparoscopic limited right colon resection, lysis of adhesions of adherent omentum in the pelvis. Patient is doing well post op. Pain is well managed. Abdominal exam benign with appropriate tenderness to incision site. Dressings intact. Passing flatus, no bowel movement. Tolerating clear liquids. Continue current pain regimen. d/c folely catheter. Wean O2 as tolerated. Continue OOB ambulation. IS encouraged. <Marcie Simms - Last Filed: 09/05/24 06:52> Patient is POD#1 s/p Hand assisted laparoscopic limited right colon resection, lysis of adhesions of adherent omentum in the pelvis. Patient is doing well post op. Pain is well managed. Abdominal exam benign with appropriate tenderness to incision site. Dressings intact. Passing flatus, no bowel movement. Tolerating clear liquids. Continue current pain regimen. d/c folely catheter. Wean O2 as tolerated. Continue OOB ambulation. IS encouraged. Agree with above assessment. Patient POD #1 s/p Hand assisted laparoscopic limited right colon resection, lysis of adhesions of adherent omentum in the pelvis. Doing well, pain minimal and well controlled, passing flatus without nausea or abd distention. Abd benign with appropriate post op tenderness, clean dressings. Dc harris. Dec IVF. Likely advance to solids later today. Increase activity. <Amy Davis PA-C - Last Filed: 09/05/24 08:59> Time Spent With Patient Time: Total time managing care of this patient today ____ minutes. <Pfridh-RX-Lvuqoiv-Ah Mendez - Last Filed: 09/05/24 06:52> Quality Stroke Does the patient have a stroke diagnosis?: No <Amy Davis PA-C - Last Filed: 09/05/24 08:59> VTE Prior VTE?: No <Amy Davis PA-C - Last Filed: 09/05/24 08:59> VTE Risk Level:: Medical - moderate - high <Zcympi-ZM-Niebmhr- Mendez - Last Filed: 09/05/24 06:52> VTE Device Contraindication: N/A - Device Ordered <Gnvczw-TI-Rxjrblo- Mendez - Last Filed: 09/05/24 06:52> VTE Drug Contraindication: N/A - Med Ordered <Sezsfo-YB-Jddqyre- Mendez - Last Filed: 09/05/24 06:52>
[2024-09-05 06:53] LABS: MANUAL DIFF FLAG NO
[2024-09-05 07:03] LABS: Basophils Percent Auto 0.2 % (0-2); Hematocrit 30.6 % (37.0-47.0); Hemoglobin 10.1 g/dl (12.0-16.0); Imm Gran Abs Auto 0.03 X10*3/uL (0.00-0.03); Imm Gran Pct Auto 0.3 % (0.0-0.4); Lymphocytes Absolute Auto 0.9 X10*3/uL (1.2-4.9); Lymphocytes Percent Auto 8.2 % (20-40); Mean Corpuscular Hemoglobin 28.8 pg (27.0-33.0); Mean Corpuscular Volume 87.2 fL (80.0-98.0); Mean Platelet Volume 11.9 fL (9.4-12.3); Monocytes Absolute Auto 0.8 X10*3/uL (0.1-1.2); Monocytes Percent Auto 7.8 % (2-11); Neutrophils Absolute Auto 8.9 x10*3/uL (2.0-8.3); Neutrophils Percent Auto 83.5 % (45-73); Platelet Count 181 X10*3/uL (160-400); Red Blood Count 3.51 X10*6/uL (4.20-5.50); White Blood Count 10.7 X10*3/uL (4.8-10.8)
[2024-09-05 07:41] LABS: Anion Gap 13 (12-20); Blood Urea Nitrogen 16 mg/dL (9-16); Calcium 8.6 mg/dL (8.4-10.2); Carbon Dioxide 24 mmol/L (22-29); Chloride 106 mmol/L (96-108); Creatinine Clr Calc Pharmacy 83.7; Estimated Glomerular Filt Rate > 60; Glucose Fasting 106 mg/dL (60-99); Potassium 3.8 mmol/L (3.3-5.1); Sodium 139 mmol/L (135-145)
[2024-09-05 07:58] VITALS: BP 136/72; PULSE 75; RESP 18; TEMP 36.6; O2SAT 96
[2024-09-05 08:32] VITALS: BP 146/72
[2024-09-05] MEDS: amLODIPine Besylate 5 MG TABLET PO (08:32)
[2024-09-05 08:33] VITALS: BP 146/72
[2024-09-05] MEDS: hydroCHLOROthiazide 12.5 MG TABLET PO (08:33)
[2024-09-05 08:34] VITALS: BP 146/72
[2024-09-05] MEDS: Pravastatin Sodium 40 MG TABLET PO (08:34)
[2024-09-05] MEDS: Valsartan 80 MG TABLET PO (08:34)
--- NOTE | 2024-09-05 08:47 | HO.POSTANES ---
Post Anesthesia Evaluation Post Anesthesia Evaluation Date of Service: 09/05/24 Vital Signs: Vital Signs Temp Pulse Resp BP Pulse Ox O2 Del Method O2 Flow Rate 09/05/24 08:34 146/72 H 09/05/24 08:33 146/72 H 09/05/24 08:32 146/72 H 09/05/24 07:58 97.9 F 75 18 136/72 96 Room Air 09/04/24 23:49 97.5 F 69 18 131/66 97 Nasal Cannula 2 Anesthesia: Regional and General Mental Status: Awake Nausea/Vomiting: None Hydration: Adequate Anesthesia-Related Issues: No Anes. Related Issues
[2024-09-05] MEDS: Phenazopyridine HCL 100 MG TABLET PO (10:39)
[2024-09-05] MEDS: oxyCODONE HCl Immed Release 5 MG TABLET PO ×2 (13:05→18:01)
[2024-09-05] MEDS: Lactated Ringers 1,000 ML 60 ML IVCONT (13:22)
--- NOTE | 2024-09-05 13:31 | MHC.CM.PN ---
IMM DELIVERED. PATIENT LIVES IN A HOME W/ HER . FUNCTIONALLY INDEPENDENT. DENIES USE OF DME OR SERVICES. PCP BETHANIE EDMONDSON MD NO HCP. CM PROVIDED EDUCATION AND OFFERED ASSISTANCE. PATIENT DECLINED AT THIS TIME - SHE IS NOT DECIDED ON WHO TO NAME [facility]. DP: GOAL IS HOME SELF CARE. TO TRANSPORT. CM WILL CONTINUE TO FOLLOW.
[2024-09-05 15:18] VITALS: BP 122/56; PULSE 72; RESP 20; TEMP 36; O2SAT 92
--- NOTE | 2024-09-05 15:33 | PM.EVENT ---
Event Note Date of Service: 09/06/24 Event Note: Seen on afternoon rounds Feels well Passing flatus Abdomen remained soft Ambulating She looks well Plan to regular food for breakfast If she continues to do well, possible DC home thereafter at bedside Time Spent With Patient Time: Total time managing care of this patient today ____ minutes.
[2024-09-05] MEDS: Heparin Sodium,Porcine 5,000 UNIT/ML VIAL 5000 UNIT SUBCUT (20:25)
[2024-09-05] MEDS: 0.9 % Sodium Chloride Flush 3 ML SYRINGE IVFLUSH (20:38)
[2024-09-06] VITALS: BP 139/66; PULSE 78; RESP 18; TEMP 36.8; O2SAT 93
[2024-09-06] MEDS: oxyCODONE HCl Immed Release 5 MG TABLET PO (00:15)
[2024-09-06] MEDS: Acetaminophen 1,000 MG/100 ML PIGGYBACK 400 MG IV (03:25)
[2024-09-06] MEDS: Lactated Ringers 1,000 ML 60 ML IVCONT (03:26)
[2024-09-06] MEDS: Heparin Sodium,Porcine 5,000 UNIT/ML VIAL 5000 UNIT SUBCUT (06:19)
[2024-09-06] MEDS: Omeprazole 40 MG CAPSULE.DR PO (06:20)
[2024-09-06] MEDS: Levothyroxine Sodium 50 MCG TABLET PO (06:20)
[2024-09-06] MEDS: Levothyroxine Sodium 200 MCG TABLET PO (06:20)
--- NOTE | 2024-09-06 07:02 | P.PNGS_ITS ---
Subjective Subjective Date of Service: 09/06/24 <[facility] - Last Filed: 09/06/24 07:11> 09/06/24 <Amy Davis PA-C - Last Filed: 09/06/24 11:19> 09/06/24 <Nash Hand MD - Last Filed: 09/06/24 13:06> Interval history: Patient seen and examined today. States she feels okay. Pain is minimal. Urinating without difficulty. Tolerating full diet. Ambulating well. Passing flatus. No bowel movement. Denies chest pain, shortness of breath, nausea or vomiting. <[facility] - Last Filed: 09/06/24 07:11> Physical Exam 2 Vital Signs: Vital Signs: Last Vital Signs Temp 98.3 F 09/06/24 00:00 Pulse 78 09/06/24 00:00 Resp 18 09/06/24 00:00 BP 139/66 09/06/24 00:00 Pulse Ox 93 09/06/24 00:00 O2 Del Method Room Air 09/06/24 00:00 O2 Flow Rate 2 09/04/24 23:49 BMI result Body Mass Index 40.5 <[facility] - Last Filed: 09/06/24 07:11> Const: Other: Laying in bed, awake, calm, in no acute distress, orientaed x3. <[facility] - Last Filed: 09/06/24 07:11> Resp: Effort & Inspection: normal respiratory effort and able to speak in complete sentences <[facility] - Last Filed: 09/06/24 07:11> Cardio: Other: Regular rate and rhythm <[facility] - Last Filed: 09/06/24 07:11> GI: Other: Abdomen is soft, non distended and non tender. Dressings intact. <[facility] - Last Filed: 09/06/24 07:11> Extrem: Other: Moving all extremities normally. No lower extremity edema noted. <[facility] - Last Filed: 09/06/24 07:11> Objective Data Active Medications Amlodipine Besylate (Amlodipine Besylate 5 Mg Tablet) 5 mg PO DAILY [facility] Last Admin: 09/05/24 08:32 Dose: 5 mg Documented By: LIZABETH Calcium Carbonate (Calcium Carbonate 750 Mg Tab.Chew) 750 mg PO Q4H PRN PRN Reason: Heartburn Last Admin: 09/05/24 01:21 Dose: 750 mg Documented By: MÓNICA Heparin Sodium (Porcine) (Heparin Sodium,Porcine 5,000 Unit/Ml Vial) 5,000 unit SUBCUT Q8H [facility] Last Admin: 09/06/24 06:19 Dose: 5,000 unit Documented By: NIKA Hydrochlorothiazide (Hydrochlorothiazide 12.5 Mg Tablet) 12.5 mg PO DAILY [facility] Last Admin: 09/05/24 08:33 Dose: 12.5 mg Documented By: LIZABETH Lactated Ringer's (Lr) 1,000 mls @ 60 mls/hr IVCONT .[id number] [facility] Last Admin: 09/06/24 03:26 Dose: 60 mls/hr Documented By: NIKA Acetaminophen (Ofirmev) 1,000 mg in 100 mls @ 400 mls/hr IV Q6H [facility] Last Infusion: 09/06/24 03:47 Dose: Infused Documented By: NIKA Levothyroxine Sodium (Levothyroxine Sodium 50 Mcg Tablet) 50 mcg PO DAILY@0600 [facility] Last Admin: 09/06/24 06:20 Dose: 50 mcg Documented By: NIKA Levothyroxine Sodium (Levothyroxine Sodium 200 Mcg Tablet) 200 mcg PO DAILY@0600 [facility] Last Admin: 09/06/24 06:20 Dose: 200 mcg Documented By: NIKA Magnesium Hydroxide (Milk Of Magnesia 30 Ml Oral.Susp) 30 ml PO DAILY PRN PRN Reason: Constipation Melatonin (Melatonin 3 Mg Tablet) 6 mg PO BEDTIME PRN PRN Reason: Insomnia Morphine Sulfate (Morphine Sulfate 4 Mg/Ml Cartridge) 4 mg IVPUSH Q3H PRN; Protocol PRN Reason: Pain, Severe (Pain Scale 7-10) Last Admin: 09/04/24 16:57 Dose: 4 mg Documented By: ALEJANDRA Omeprazole (Omeprazole 40 Mg Capsule.Dr) 40 mg PO DAILY@0630 [facility] Last Admin: 09/06/24 06:20 Dose: 40 mg Documented By: NIKA Ondansetron HCl (Ondansetron Hcl 4 Mg/2 Ml Vial) 4 mg IVPUSH Q6H PRN PRN Reason: Nausea and Vomiting Oxycodone HCl (Oxycodone Hcl Immed Release 5 Mg Tablet) 5 mg PO Q4H PRN PRN Reason: Pain, Moderate(Pain Scale 4-6) Last Admin: 09/06/24 00:15 Dose: 5 mg Documented By: NIKA Phenazopyridine HCl (Phenazopyridine Hcl 100 Mg Tablet) 100 mg PO BIDWM PRN PRN Reason: dysuria Stop: 09/07/24 10:31 Last Admin: 09/05/24 10:39 Dose: 100 mg Documented By: ORA Pravastatin Sodium (Pravastatin Sodium 40 Mg Tablet) 40 mg PO DAILY [facility] Last Admin: 09/05/24 08:34 Dose: 40 mg Documented By: LIZABETH Sodium Chloride (0.9 % Sodium Chloride Flush 3 Ml Syringe) 3 ml IVFLUSH QSHIFT [facility] Last Admin: 09/05/24 20:38 Dose: 3 ml Documented By: NIKA Valsartan (Valsartan 80 Mg Tablet) 80 mg PO DAILY [facility] Last Admin: 09/05/24 08:34 Dose: 80 mg Documented By: LIZABETH <[facility] - Last Filed: 09/06/24 07:11> Labs CBC & Chem 7: 09/05/24 05:25 09/05/24 05:25 <[facility] - Last Filed: 09/06/24 07:11> Labs: Laboratory Results - last 24 hr 09/05/24 05:25 MCV 87.2 MCH 28.8 MCHC 33.0 RDW 15.0 Plt Count 181 MPV 11.9 Immature Gran % (Auto) 0.3 Neut % (Auto) 83.5 H Lymph % (Auto) 8.2 L [place] % (Auto) 7.8 Eos % (Auto) 0.0 Baso % (Auto) 0.2 Lymph # (Auto) 0.9 L [place] # (Auto) 0.8 Eos # (Auto) 0.0 Baso # (Auto) 0.0 Abs Immat Gran (auto) 0.03 Absolute Neuts (auto) 8.9 H Absolute Nucleated RBC 0.000 Nucleated RBC % (auto) 0.0 Anion Gap 13 Estim Creat Clear Calc 83.7 Estimated GFR > 60 Fasting Glucose 106 H Calcium 8.6 D <[facility] - Last Filed: 09/06/24 07:11> Procedures Date of Service Date of Service: 09/06/24 <Rhlxzo-IG-Huyduju- [facility] - Last Filed: 09/06/24 07:11> 09/06/24 <Amy Davis PA-C - Last Filed: 09/06/24 11:19> 09/06/24 <Nash Hand MD - Last Filed: 09/06/24 13:06> Progress Note: A&P Assessment and plan (1) Cecal polyp: Status: Acute <[facility] - Last Filed: 09/06/24 07:11> Assessment and Plan: Patient is POD#2 s/p Hand assisted laparoscopic limited right colon resection, lysis of adhesions of adherent omentum in the pelvis. Patient is doing well post op. Pain is well managed. Abdominal exam benign. Dressings intact. Passing flatus, no bowel movement. Tolerating full diet. d/c IVF. Continue current pain regimen. Continue OOB ambulation. IS encouraged. Awating BM before patient d/c. <[facility] - Last Filed: 09/06/24 07:11> Time Spent With Patient Time: Total time managing care of this patient today ____ minutes. <Baildn-AT-Wvkdfje- Mendez - Last Filed: 09/06/24 07:11> Quality Stroke Does the patient have a stroke diagnosis?: No <[facility] - Last Filed: 09/06/24 07:11> VTE Prior VTE?: No <[facility] - Last Filed: 09/06/24 07:11> VTE Risk Level:: Medical - moderate - high <Wseezf-NR-Kmzbfet-Ah Mendez - Last Filed: 09/06/24 07:11> VTE Device Contraindication: N/A - Device Ordered <Uihwzp-JW-Lqpamuy-Ah Esa - Last Filed: 09/06/24 07:11> VTE Drug Contraindication: N/A - Med Ordered <Vikcjd-ZM-Ghckogv-Ah Mendez - Last Filed: 09/06/24 07:11>
[2024-09-06 07:39] VITALS: BP 148/68; PULSE 68; RESP 17; TEMP 36.3; O2SAT 93
--- NOTE | 2024-09-06 08:07 | PM.PNGS ---
Subjective Subjective Date of Service: 09/06/24 Interval history: States she feels well Tolerating diet Passing good amounts of flatus Says pain is well-controlled Has been ambulating Physical Exam Vital Signs: Vital Signs: Last Vital Signs Temp 97.3 F 09/06/24 07:39 Pulse 68 09/06/24 07:39 Resp 17 09/06/24 07:39 BP 148/68 H 09/06/24 07:39 Pulse Ox 93 09/06/24 07:39 O2 Del Method Room Air 09/06/24 07:39 O2 Flow Rate 2 09/04/24 23:49 BMI result Body Mass Index 40.5 Const: General: comfortable and no acute distress Resp: Effort & Inspection: normal respiratory effort Cardio: Rate: regular rate GI: Other: Incisions clean and dry Palpation (GI): Soft to palpation, not firm and no guarding Objective Data Active Medications Amlodipine Besylate (Amlodipine Besylate 5 Mg Tablet) 5 mg PO DAILY [facility] Last Admin: 09/05/24 08:32 Dose: 5 mg Documented By: LIZABETH Calcium Carbonate (Calcium Carbonate 750 Mg Tab.Chew) 750 mg PO Q4H PRN PRN Reason: Heartburn Last Admin: 09/05/24 01:21 Dose: 750 mg Documented By: MÓNICA Heparin Sodium (Porcine) (Heparin Sodium,Porcine 5,000 Unit/Ml Vial) 5,000 unit SUBCUT Q8H [facility] Last Admin: 09/06/24 06:19 Dose: 5,000 unit Documented By: NIKA Hydrochlorothiazide (Hydrochlorothiazide 12.5 Mg Tablet) 12.5 mg PO DAILY [facility] Last Admin: 09/05/24 08:33 Dose: 12.5 mg Documented By: LIZABETH Lactated Ringer's (Lr) 1,000 mls @ 60 mls/hr IVCONT .[id number] [facility] Last Admin: 09/06/24 03:26 Dose: 60 mls/hr Documented By: NIKA Acetaminophen (Ofirmev) 1,000 mg in 100 mls @ 400 mls/hr IV Q6H [facility] Last Infusion: 09/06/24 03:47 Dose: Infused Documented By: NIKA Levothyroxine Sodium (Levothyroxine Sodium 50 Mcg Tablet) 50 mcg PO DAILY@0600 [facility] Last Admin: 09/06/24 06:20 Dose: 50 mcg Documented By: NIKA Levothyroxine Sodium (Levothyroxine Sodium 200 Mcg Tablet) 200 mcg PO DAILY@0600 [facility] Last Admin: 09/06/24 06:20 Dose: 200 mcg Documented By: NIKA Magnesium Hydroxide (Milk Of Magnesia 30 Ml Oral.Susp) 30 ml PO DAILY PRN PRN Reason: Constipation Melatonin (Melatonin 3 Mg Tablet) 6 mg PO BEDTIME PRN PRN Reason: Insomnia Morphine Sulfate (Morphine Sulfate 4 Mg/Ml Cartridge) 4 mg IVPUSH Q3H PRN; Protocol PRN Reason: Pain, Severe (Pain Scale 7-10) Last Admin: 09/04/24 16:57 Dose: 4 mg Documented By: ALEJANDRA Omeprazole (Omeprazole 40 Mg Capsule.Dr) 40 mg PO DAILY@06 [facility] Last Admin: 09/06/24 06:20 Dose: 40 mg Documented By: NIKA Ondansetron HCl (Ondansetron Hcl 4 Mg/2 Ml Vial) 4 mg IVPUSH Q6H PRN PRN Reason: Nausea and Vomiting Oxycodone HCl (Oxycodone Hcl Immed Release 5 Mg Tablet) 5 mg PO Q4H PRN PRN Reason: Pain, Moderate(Pain Scale 4-6) Last Admin: 09/06/24 00:15 Dose: 5 mg Documented By: NIKA Phenazopyridine HCl (Phenazopyridine Hcl 100 Mg Tablet) 100 mg PO BIDWM PRN PRN Reason: dysuria Stop: 09/07/24 10:31 Last Admin: 09/05/24 10:39 Dose: 100 mg Documented By: ORA Pravastatin Sodium (Pravastatin Sodium 40 Mg Tablet) 40 mg PO DAILY [facility] Last Admin: 09/05/24 08:34 Dose: 40 mg Documented By: LIZABETH Sodium Chloride (0.9 % Sodium Chloride Flush 3 Ml Syringe) 3 ml IVFLUSH QSHIFT [facility] Last Admin: 09/05/24 20:38 Dose: 3 ml Documented By: NIKA Valsartan (Valsartan 80 Mg Tablet) 80 mg PO DAILY [facility] Last Admin: 09/05/24 08:34 Dose: 80 mg Documented By: LIZABETH Labs 09/05/24 05:25 09/05/24 05:25 Procedures Date of Service Date of Service: 09/06/24 Progress Note: A&P Assessment and plan (1) Cecal polyp: Status: Acute Assessment and Plan: Status post resection Doing well clinically Tolerating diet Continue pain management Ambulate She says she once she is ready to be discharged today We will re-evaluate later Time Spent With Patient Time: Total time managing care of this patient today ____ minutes. Quality Stroke Does the patient have a stroke diagnosis?: No VTE Prior VTE?: No VTE Risk Level:: Medical - moderate - high VTE Device Contraindication: N/A - Device Ordered VTE Drug Contraindication: N/A - Med Ordered
[2024-09-06] MEDS: hydroCHLOROthiazide 12.5 MG TABLET PO (08:11)
[2024-09-06] MEDS: amLODIPine Besylate 5 MG TABLET PO (08:12)
[2024-09-06] MEDS: 0.9 % Sodium Chloride Flush 3 ML SYRINGE IVFLUSH (08:12)
[2024-09-06] MEDS: Pravastatin Sodium 40 MG TABLET PO (08:12)
[2024-09-06] MEDS: Valsartan 80 MG TABLET PO (08:12)
--- NOTE | 2024-09-06 13:02 | MHC.CM.PN ---
DP: PT HAS BEEN MEDICALLY CLEARED FOR DC HOME, NO SERVICES. PT'S SPOUSE WILL TRANSPORT.
--- NOTE | 2024-09-06 13:04 | PM.EVENT ---
Event Note Date of Service: 09/06/24 Event Note: Seen on early afternoon She continues to do well Continues to tolerate diet Passing large amounts flatus She looks well Abdomen is soft She says she is ready to be discharged Discharge instructions reinforced with patient Follow up in the office Time Spent With Patient Time: Total time managing care of this patient today ____ minutes.
--- NOTE | 2024-09-06 13:07 | PM.DS ---
DS: Providers Provider Date of Service: 09/06/24 Date of admission: 09/04/24 07:16 Date of discharge: 09/06/24 Primary care physician: Audie Haywood MD Attending physician on admission: Nash Hand Attending physician on discharge: Nash Hand DS: Diagnosis Discharge Diagnosis (1) Cecal polyp: Status: Acute DS: Summary Hospital Course Hospital Course: HPI AT ADMISSION: The patient is a 69-year-old female referred to me for a polyp at the appendiceal orifice. This was a serrated adenoma on pathology. This could not be endoscopically removed. I explained to her the technique of the planned procedure. HOSPITAL COURSE: On 09/04/24, hand assisted laparoscopic limited right colon resection, lysis of adhesions of adherent omentum in the pelvis was performed by Dr. Hand without complication. The patient tolerated the procedure well and was admitted for observation post operatively. She had an uncomplicated recovery course. On POD #1, she felt well with minimal incisional pain. She was passing flatus. She was ambulating. Her harris was removed. She continued to feel well later in the day and was advanced to a solid diet. The following day, she was tolerating a solid diet without nausea or vomiting. She was passing flatus. Her pain was mild. She was ambulating without difficulty. Her abdomen was benign with clean incisions. She was hemodynamically stable. She was discharged to home on 09/06/24 in stable condition. She is to take a stool softener BID until she is having regular bowel movements. She is to follow up in the office in 2 weeks. Time Attestation Discharge Coordination Time (in mins): 35 Quality: Safe Use of Opioids Does Pt have an Active Cancer Diagnosis on the Problem List?: No Quality: Stroke Does the patient have a stroke diagnosis?: No Physical Exam Vital Signs: Vital Signs: Last Vital Signs Temp 97.3 F 09/06/24 07:39 Pulse 68 09/06/24 07:39 Resp 17 09/06/24 07:39 BP 148/68 H 09/06/24 07:39 Pulse Ox 93 09/06/24 07:39 O2 Del Method Room Air 09/06/24 07:39 O2 Flow Rate 2 09/04/24 23:49 BMI result Body Mass Index 40.5 Const: General: comfortable, no acute distress and alert Orientation/consciousness: patient oriented x3 Resp: Effort & Inspection: normal respiratory effort GI: Inspection: Yes distended (mild) and Yes incision (clean ) Palpation (GI): Soft to palpation, Tenderness to palpation present (GI) (mild incisional) and no guarding Skin: General skin exam: no rashes or lesions noted Neuro: General: patient oriented x3 and moves all extremities DS: Data Data Completed and Pending Completed studies during hospitalization [Text1]: 09/04/24 08:53 Surgical [PTH] Routine Terminal ileum and cecum, ileocecectomy: - Sessile serrated lesion/polyp; negative for cytologic dysplasia; negative margins. - Mature lobulated adipose tissue consistent with lipoma. - Vermiform appendix with dystrophic calcifications; otherwise within normal limits. - Four reactive appearing lymph nodes. Discharge Plan Discharge Anticipated Discharge Date/Time: 09/06/24 14:00 Patient Disposition: Home, Self-Care Discharge Diagnosis: s/p HNANA right colectomy Referrals: Audie Haywood MD [Primary Care Provider] - 1 Week Nash Hand MD [Physician] - 2 Weeks Discharge Medications: New oxycodone 5 mg tablet 5 mg PO Q4H PRN (Reason: pain (scale score 7-10)) Qty: 24 0RF Rx Instructions: Partial Fill upon patient request. docusate sodium [Colace] 100 mg capsule 100 mg PO BID Qty: 30 0RF Continued multivitamin Tablet 1 tab PO DAILY irbesartan-hydrochlorothiazide 150-12.5 mg Tablet 1 tab PO DAILY pravastatin 40 mg Tablet 40 mg PO DAILY omeprazole 40 mg Capsule,Delayed Release(Dr/Ec) 40 mg PO DAILY levothyroxine 50 mcg Tablet 50 mcg PO DAILY hyoscyamine sulfate 0.125 mg Tablet 0.25 mg PO QID PRN (Reason: esophageal spasm) Slow-Mag 71.5 mg Tablet,Delayed Release (Dr/Ec) 71.5 mg PO DAILY PreserVision AREDS-2 250-90-40-1 mg Capsule 1 tab PO BID levothyroxine [Synthroid] 200 mcg tablet 200 mcg PO DAILY amlodipine 5 mg tablet 5 mg PO DAILY Discharge Orders: Discharge Order (Routine); Ordered 09/06/24 Ordered By: Amy Davis Diet: Advance to usual diet Activity on Discharge: No heavy lifting Stand Alone Forms: Patient Portal Discharge page Print Language: Indonesian Activity Restrictions/Additional Instructions: If the incision area is tender, you may apply an ice pack for short intervals (No more than 20 minutes on, followed by at least 20 minutes off). Do not apply heat. Do not use creams, lotions, or topical antibiotics. These can cause infection or allergic reaction. Ok to shower. You have steri strips (small white cloth strips) covering your incision- these will fall off ~1 week. Follow up in office with Dr. Hand in 2 weeks. ([phone]) No heavy lifting (>10-20lbs) or strenuous activity! Call Your Doctor If: -Your temperature exceeds 101.5? F -You experience excessive pain or swelling -You have an unexpected reaction to medication -You have excessive bleeding -You experience continued vomiting/nausea -Your incision begins to separate -Your incision shows signs of infection such as increased redness, swelling, excessive pain, drainage (light blood or clear fluid is normal) or heat Care Plan Goals: Return to baseline health and resume normal activities following recovery period. Health Concerns: unresectable polyp Plan of Treatment: s/p HANNA bradshaw Assessment: Doing well post op.
[2024-09-06 13:15] VITALS: BP 130/64; PULSE 82; RESP 18; TEMP 36.1; O2SAT 97
== END 2024-09-06 13:23 | disposition home or self-care (01) | DRG 330 ==
LOC: HO.SSSA 07:23 → HO.S3 10:01
PROVIDERS: Nurse Practitioner; Physician Assistant Surgical; Admitting Provider Surgery; PCP Internal Medicine; Visit Provider Surgery
PROC: 0DTE0ZZ Resection of Large Intestine, Open Approach (ICD-10-PCS; principal; 2024-09-04 07:30)
DX: D12.0 Benign neoplasm of cecum (principal); Z68.41 Body mass index [BMI] 40.0-44.9, adult; E06.3 Autoimmune thyroiditis; K66.0 Peritoneal adhesions (postprocedural) (postinfection); E66.01 Morbid (severe) obesity due to excess calories; G89.18 Other acute postprocedural pain; Z87.891 Personal history of nicotine dependence; Z79.890 Hormone replacement therapy; Z79.899 Other long term (current) drug therapy
CPT/HCPCS: 36415; 74177; 80048; 85025; 85027; 86850; 86900; 86901; 88307; 88309; 93005; J0131; J0171; J0665; J1100; J1171; J1644; J2003; J2250; J2270; J2405; J2704; J3010; J7120; Q9967

== ENCOUNTER → 2024-09-04 07:16 | Outpatient (BNV) | payer MEDICARE, SELFPAY | PROVIDERS: Admitting Provider Surgery; PCP Internal Medicine; Visit Provider Surgery | DX: K63.5 Polyp of colon (principal) | CPT/HCPCS: 44204; 99024; 99499 ==

== ENCOUNTER 2024-09-17 09:49 | Outpatient (AMB) | payer MEDICARE, SELFPAY ==
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
--- OUTSIDE RECORDS SUMMARY | 2024-09-17 10:49 | XMS_ITS ---
Author Organization [facility] Address [address] [place] [address] Care Team Providers Care Data Virtualization Consultant Name Role Phone Audie Haywood MD Primary Care Provider Brian Jolly [phone] REASON FOR VISIT Appendiceal orifice polyp Encounters Encounter Location Date Provider Diagnosis [facility] [address] [place] [address] 07/11/2024 Brian Banuelos PLAN OF TREATMENT No Information
--- OUTSIDE RECORDS SUMMARY | 2024-09-17 10:50 | XMS_ITS ---
Author Organization [facility] Address [address] [place] [address] Care Team Providers Care Corporate Representative Name Role Phone Yobany DE GUZMAN, Audie Primary Care Provider Brian Jolly Unavailable [phone] ALLERGIES Allergen (clinical drug ingredient) Drug/Non Drug [...] confirmed Screening for malignant neoplasm of colon (433574211) Problem Dysphagia (R13.10) Active confirmed Dys phagia (66219487) Problem Gastroesophageal reflux disease with esophagitis without hemorrhage (K21.00) Active confirmed Gastroes ophageal reflux disease with esophagitis (disorder) (820250271) VITAL SIGNS Temperature 97.5 degrees Fahrenheit 03/23/20 24 Blood pressure systolic 000 mm Hg 03/23/20 24 Blood pressure diastolic 00 mm Hg 024 Height 63.75 in 03/23/2024 Weight 247 lb 6 oz lbs 03/23/2024 BMI 42.79 kg/m2 03/23/2024 Encounters Encounter Location Date Provider Diagnosis [facility] [address] [place] [address] 03/23/2024 Brian Banuelos Barretts esophagus without dysplasia [...]
--- OUTSIDE RECORDS SUMMARY | 2024-09-17 10:50 | XMS_ITS ---
Author Organization Audie Haywood MD Address [address] [place], [place] [id number] Care Team Providers Care Computer Technical Specialist Name Role Phone Audie Haywood Primary Care [...] Location Date Provider Diagnosis Audie Haywood MD [address] [place] [address] [place] [phone] 06/18/2024 Audie Haywood Essential hypertensi on I10 [...] Details Provider Name:Audie rodrigues, 12/18/2024 07:45:00 AM, [address] [place] [address], [address], [place], [place], [phone], Provider Name:Audie rodrigues, 12/25/2024 09:30:00 AM, [address] [place] [address], [address], [place], [place], [phone], Progress Notes * Gerald FRYOB:[birth year] (69 yo F)Acc No.[id number]:06/18/2024 Progress Notes Patient:?Kristina Fry Provider:?Audie Haywood MD :1955???Age:69 Y???Sex:Female D ate:06/18/2024 Address:[address] [place], [place] [address] Subjective: * Chief Complaints: * ???6 month * HPI: ???Symptom(s):? patient is A 69 yo female here for follow up. saw [facility]. * ROS:?General/Constitutional:?Denies?Chills.?Denies?Fatigue.?Denies?Fever.?Denies?Headache.?ENT:?Patient denies?decreased sense of smell , [...] MD Date:?1 08/18/2023 Generated for Alex taylor/Radha/Hersonsmitting on:?09/17/2024 10:50 AM EST History and Physical Notes * [...]
--- OUTSIDE RECORDS SUMMARY | 2024-09-17 10:51 | XMS_ITS | Clinical Summary ---
Author Organization [facility] Address [address] [place] [address] Care Team Providers Care Plant Sprayer Name Role Phone Audie Haywood MD Primary Care Provider [phone] Allergies Active Allergy Reactions Criticality Noted Date [...] age to complete this topic Care Teams Plant Sprayer Relationship Specialty Start Date End Date Audie Haywood MD [address] [place] [address] PCP - General Internal Medicine 07/28/20
== END 2024-09-17 10:04 | disposition home or self-care (01) ==
PROVIDERS: PCP Internal Medicine; Visit Provider Surgery
DX: K63.5 Polyp of colon (principal)
CPT/HCPCS: 99024

== ENCOUNTER → 2024-09-17 09:49 | Outpatient (BNVA) | payer MEDICARE, SELFPAY | PROVIDERS: PCP Internal Medicine; Visit Provider Surgery | DX: K63.5 Polyp of colon (principal) | CPT/HCPCS: 99212 ==

== ENCOUNTER 2024-12-18 10:17 | Outpatient (REF) | payer MEDICARE, SELFPAY ==
[2024-12-18 10:19] LABS: MANUAL DIFF FLAG NO
[2024-12-18 10:26] LABS: Basophils Percent Auto 0.7 % (0-2); Eosinophils Percent Auto 2.3 % (0-4); Hematocrit 35.9 % (37.0-47.0); Imm Gran Abs Auto 0.03 X10*3/uL (0.00-0.03); Imm Gran Pct Auto 0.5 % (0.0-0.4); Lymphocytes Absolute Auto 1.9 X10*3/uL (1.2-4.9); Mean Corpuscular HGB Conc 33.4 g/dl (31.0-35.0); Mean Corpuscular Volume 86.7 fL (80.0-98.0); Monocytes Absolute Auto 0.4 X10*3/uL (0.1-1.2); Monocytes Percent Auto 7.2 % (2-11); Neutrophils Absolute Auto 3.6 x10*3/uL (2.0-8.3); Neutrophils Percent Auto 58.3 % (45-73); Platelet Count 201 X10*3/uL (160-400); Red Blood Count 4.14 X10*6/uL (4.20-5.50); Red Cell Distribution Width 14.8 % (11.0-16.0); White Blood Count 6.1 X10*3/uL (4.8-10.8)
[2024-12-18 10:27] LABS: Eosinophils Absolute Auto 0.1 X10*3/uL (0.0-0.4)
[2024-12-18 10:28] LABS: Appearance Urine Clear; Color Urine Yellow; Glucose Urine UA Negative (Negative); Leukocyte Esterase Urine Moderate (2+) (Negative); Nitrite Urine Positive (Negative); UMIC TRIGGER UACC YES; Urine Blood Negative (Negative); Urine Ketones Negative (Negative); Urine Protein Negative (Neg-Trace)
[2024-12-18 10:32] LABS: Bacteria Urine 4+ (None Seen); Hyaline Casts Urine 0-2 /LPF (0-2); RBC Urine 0-2 /HPF (0-2); UACC Culture Trigger YES
[2024-12-18 10:45] LABS: Alanine Aminotransferase 20 U/L (0-31); Albumin Level 4.3 g/dL (3.5-5.0); Alkaline Phosphatase 117 U/L (39-117); Anion Gap 14 (12-20); Aspartate Amino Transferase 23 U/L (5-31); Bilirubin Total 0.5 mg/dL (0.0-1.0); Blood Urea Nitrogen 26 mg/dL (9-16); Calcium 9.7 mg/dL (8.4-10.2); Carbon Dioxide 27 mmol/L (22-29); Chloride 105 mmol/L (96-108); Cholesterol 242 mg/dL (<200); Estimated Glomerular Filt Rate 52; Glucose Fasting 87 mg/dL (60-99); HDL Cholesterol 53 mg/dL (>40); LDL Cholesterol Calculated 125 mg/dL (<100); Potassium 3.9 mmol/L (3.3-5.1); Sodium 142 mmol/L (135-145); Total Protein 7.3 g/dL (6.5-8.0); Triglycerides 321 mg/dL (<150)
[2024-12-18 11:00] LABS: TSH reflex Free T4 0.82 uIU/mL (0.32-4.0)
--- OUTSIDE RECORDS SUMMARY | 2024-12-18 11:02 | XMS_ITS ---
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 Problem Benign neoplasm of stomach (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) Gastric polyps (K31.7) Active confirmed Problem Gastroesophageal reflux disease (193463227) Gastroesophageal reflux disease (K21.9) Active confirmed Encounters Encounter Location Date Provider Diagnosis [facility] [address] [place] [phone] 07/06/2024 Brian Banuelos Colon cancer screeni ng Z12.11 ; Colon polyps K63.5 ; Rectal polyp K62.1 ; Diverticulosis of large intestine without perforation or abscess without bleeding K57.30 ; Other hemorrhoids K64.8 ; Baltazar esophagus K22.70 ; Hiatal hernia K44.9 ; Gastric polyps K31.7 ; Gastroesophageal reflux disease K21.9 and Dysphagia R13.10 Assessments Encounter Date Diagnosis (ICD Code) Assessment Notes Treatment Notes Treatment Clinical Notes Section Notes 07/06/2024 Colon cancer screening (ICD-10 - Z12.11) 07/06/2024 Colon polyps (ICD-10 - K63.5) 07/06/2024 Rectal polyp (ICD-10 - K62.1) 07/06/2024 Diverticulosis of large intestine without perforation or abscess without bleeding (ICD-10 - K57.30) 07/06/2024 Other hemorrhoids (ICD-10 - K64.8) 07/06/2024 Baltazar esophagus (ICD-10 - K22.70) 07/06/2024 Hiatal hernia (ICD-10 - K44.9) 07/06/2024 Gastric polyps (ICD-10 - K31.7) 07/06/2024 Gastroesophageal reflux disease (ICD-10 - K21.9) 07/06/2024 Dysphagia (ICD-10 - R13.10) Plan Of Treatment No Information Progress Notes * WILTON FRYOB:[birth year] (69 yo F)Acc No.[id number]:07/06/2024 EGD and COL/MAC Patient:?EFRA FRY Provider:?Brian Banuelos MD :1955???Age:69 Y???Sex:Female D ate:07/06/2024 Address:[address] [place], [place] [id number] Pcp:Audie Haywood MD Subjective: * Chief Complaints: * ???1. Baltazar's,gerd w/ esop hagitis, dysphagia,screening,hx polyps. * Medical History:? Objective: * Vitals:? Assessment: * Assessment: 1.?Colon cancer screening - Z12.11 (Primary)???2.?Colon polyps - K63.5???3.?Rectal polyp - K62.1???4.?Diverticulosis of large intestine without perforation or abscess without bleeding - K57.30???5.?Other hemorrhoids - K64.8???6.?Baltazar esophagus - K22.70???7.?Hiatal hernia - K44.9???8.?Gastric polyps - K31.7???9.?Gastroesophageal reflux disease - K21.9???10.?Dysphagia - R13.10??? Plan: * Treatment: * Procedure Codes:?81763 COLON OSCOPY AND BIOPSY, Modifiers: PT , 0529F INTRVL 3+YRS PTS CLNSCP DOCD, 0528F RCMND FLW-UP 10 YRS DOCD, Modifiers: 1P , 39170 UPPER GI ENDOSCOPY, BIOPSY, 3126F ESOPH BX RPRT W/DYSPL INFO * * The named appointment provid er may or may not be the originator of this progress note, and it is not deemed complete until electronically signed by the appointment provider. Sign off status: Pending * Provider:?Brian Banuelos MD Date:? 024 Generated for Alex taylor/Radha/Wendyransmitting on:?12/18/2024 11:01 AM EDT
== END 2024-12-18 10:18 | disposition home or self-care (01) ==
LOC: HO.LNP 10:17
PROVIDERS: Visit Provider Internal Medicine
DX: I10 Essential (primary) hypertension (principal); E03.9 Hypothyroidism, unspecified; E78.00 Pure hypercholesterolemia, unspecified; R82.90 Unspecified abnormal findings in urine
CPT/HCPCS: 80053; 80061; 81001; 84443; 85025; 87086; 87186

== ENCOUNTER 2025-01-01 10:45 | Outpatient (REF) | payer MEDICARE, SELFPAY ==
[2025-01-01 10:57] LABS: Appearance Urine Clear; Color Urine Yellow; Glucose Urine UA Negative (Negative); Leukocyte Esterase Urine Negative (Negative); Nitrite Urine Negative (Negative); Specific Gravity - Urine 1.015 (1.005-1.025); Urine Blood Negative (Negative); Urine Ketones Negative (Negative); Urine Protein Negative (Neg-Trace)
[2025-01-01 11:01] LABS: Bacteria Urine None Seen (None Seen); RBC Urine 0-2 /HPF (0-2); WBC Urine 0-5 /HPF (0-5)
--- OUTSIDE RECORDS SUMMARY | 2025-01-01 12:38 | XMS_ITS ---
Author Organization Audie Haywood MD Address [address] [place], [place] [id number] Care Team Providers Care Acoustical Material Worker Name Role Phone Audie Haywood Primary Care Provider Allergies Allergen (clinical drug ingredient) Drug/Non Drug Allergy documented on EMR Reaction Allergy Type Onset Date Status penicillin G Penicillin G Sodium hives Drug Allergy Active sulfamethoxazole / trimethoprim Bactrim hives Drug Allergy Active codeine codeine (uncoded) hives Allergy Ac tive REASON FOR VISIT comp visit/ must see lab Comp Draper Medications Medication SIG (Take, Route, Frequency, Duration) Notes Start Date End Date Status ProAir HFA 108 (90 Base) MCG/ACT 2 puffs as needed Inhalation every 4 hrs for 30 days 07/26/2014 Not-Taking Synthroid 200 MCG TAKE ONE TABLET BY MOUTH EVERY DAY IN THE MORNING ON AN EMPTY STOMACH for 90 Active Hyoscyamine Sulfate 0.125 MG 1 tablet as needed Orally Four times a day as needed for 30 days Active Omeprazole 40 MG 1 capsule Orally Onc e a day 08/09/2017 Active Chromium Picolinate 500 MCG as directed Orally Active Valtrex 1 GM 2 tablet Orally twic e a day for 1 dose 07/21/2017 Not-Taking Estradiol 0.1 MG/GM as directed Vaginal daily for 90 days 05/31/2017 Not-Taking ProAir HFA 108 (90 Base) MCG/ACT 2 puffs as needed Inhalation every 6 hrs for 30 days 08/31/2018 Not-Taking Hydrocortisone John-Pramoxine 2.5-1 % 1 application as needed Externally Three times a day Not-Taking Ciclopirox 0.77 % 1 application Externally Twice a day Not-Mel garza Irbesartan-hydroCHLOROthia zide 300-12.5 MG TAKE ONE TABLET BY MOUTH EVERY DAY for 30 Active Levothyroxine Sodium 50 MCG TAKE ONE TABLET BY MOUTH EVERY MORNING ON EMPTY STOMACH WITH 200MCG FOR TOTAL 250MCG PER DAY for 90 Active Pravastatin Sodium 40 MG TAKE ONE TABLET BY MOUTH EVERY DAY for 90 Active amLODIPine Besylate 5 MG TAKE ONE TABLET BY MOUTH EVERY DAY for 30 Active Social History Tobacco Use: Social History Observation Description Date Details (start date - stop date) Never Smoker NA - NA Tobacco Use/Smoking Question Answer Notes Patient is a nonsmoker Additional Findings: Tobacco Non-User Cu rrent non-smoker, currently using no form of tobacco Alcohol Screen Question Answer Notes Did you have a drink containing alcohol in the p ast year? No Points 0 Interpretation Negative Vital Signs Blood pressure systolic 148 mm Hg 12/26/19 25 Blood pressure diastolic 74 mm Hg 025 Height 65 in 12/25/2024 Weight 238 lbs 12/25/2024 BMI 39.6 kg/m2 12/25/2024 Encounters Encounter Location Date Provider Diagnosis Audie Haywood MD [address] [place] [address] Drive [address] [place], [place] [phone] 12/25/2024 Audie Haywood Essential hypertension I10 ; Barretts esophagus without dysplasia K22.70 and Tubular adenoma D36.9 Assessments Encounter Date Diagnosis (ICD Code) Assessment Notes Treatment Notes Treatment Clinical Notes Section Notes 12/25/2024 Essential hypertension (ICD-10 - I10) blood pressure well controlled on meds 12/25/2024 Barretts esophagus without dysplasia (ICD-10 - K22.70) had recent endoscopy and biopsy 12/25/2024 Tubular adenoma (ICD-10 - D36.9) had colonoscopy this year repeat in 5 years Plan Of Treatment Treatment Notes Assessment Notes Essential hypertension blood pressure we ll controlled on meds Barretts esophagus without dysplasia had recent endoscopy and biopsy Tubular adenoma had colonoscopy this year repeat in 5 years Next Appt Details Provider Name:Audie rodrigues, 06/27/2025 08:00:00 AM, [address] [place] [address], [address], [place], [place], [phone], Provider Name:Audie rodrigues, 07/04/2025 09:00:00 AM, [address], [address], [place], [phone], Provider Name:Audie Keane lilia, 12/23/2025 07:00:00 AM, [address] [facility], [address], [place], [phone], Provider Name:Audie Keane lilia, 12/30/2025 10:30:00 AM, [address] [facility], [address], [place], [phone], Progress Notes * Gerald FRYOB:[birth year] (69 yo F)Acc No.[id number]:12/25/2024 Patient:?Kristina FRY Provider:?Audie Haywood MD :1955???Age:69 Y???Sex:Female D ate:12/25/2024 Address:[address] [place] [address] [place] [id number] Subjective: * Chief Complaints: * ???1. comp visit/ must see l ab Comp Draper. * HPI: ???Depression Screening:?PHQ-9?Little interest or pleasure in doing things?Not at all,?Feeling down, depressed, or hopeless?Not at all,?Trouble falling or staying asleep, or sleeping too much?Not at all,?Feeling tired or having little energy?Not at all,?Poor appetite or overeating?Not at all,?Feeling bad about yourself or that you are a failure, or have let yourself or your family down?Not at all,?Trouble concentrating on things, such as reading the newspaper or watching television?Not at all,?Moving or speaking so slowly that other people could have noticed; or the opposite, being so fidgety or restless that you have been moving around a lot more than usual?Not at all,?Thoughts that you would be better off or of hurting yourself in some way?Not at all,?Total Score?0.?Interpretation and Intervention?Depression Screening Findings?Negative,?Follow-Up for Depression?: review of PHQ-9 found negative result, no follow-up needed.?Communication Needs:?Communication Needs?Does the patient have a hearing impairment?No,?Does the patient have a vision impairment??Yes,?If yes, what is the vision impairment??Glasses,?Does the patient have a cognition impairment??No.?Fall Risk:?History?Have you had any falls with injury in the past year??Yes fell off her bike onto her lawn , landed on left side no injury,?Have you had two or more falls in the past year??No.?SDOH Questions:?SDOH Questions?In the past year have you been worried about losing housing??No,?In the past year have you or any family members you live with been unable to get any of the following when it was really needed? Check all that apply:?None.?Symptom(s):? patient is a 69 yo female here for visit with review of recent labs andfollow up of chronic issues?here for yearly evaluation. rt leg is not working for riding her bike. is doing an exercise routine and it doesn't? come off the bike. * ROS:?General/Constitutional:?Change in appetite?denies.?Chills?denies.?Fever?denies.?Ophthalmologic:?Blurred vision?denies.?Discharge?denies.?Pain?denies.?ENT:?Decreased hearing?denies.?Sore throat?denies.?Swollen glands?denies.?Endocrine:?Cold intolerance?denies.?Excessive thirst?denies.?Heat intolerance?denies.?Weight loss?denies.?Respiratory:?Cough?denies.?Shortness of breath at rest?denies.?Shortness of breath with exertion?denies.?Wheezing?denies.?Cardiovascular:?Chest pain at rest?denies.?Chest pain with exertion?denies.?Irregular heartbeat?denies.?Shortness of breath?denies.?Gastrointestinal:?Abdominal pain?denies.?Change in bowel habits?denies.?Diarrhea?denies.?Nausea?denies.?Rectal bleeding?denies.?Vomiting?denies .?Genitourinary:?Blood in urine?denies.?Difficulty urinating?denies.?Frequent urination?denies.?Urinary incontinence?Denies.?Musculoskeletal:?Painful joints?denies.?Weakness?denies.?Skin:?Dry skin?denies.?Itching?denies.?Denies?Mole(s),? changes in moles, new moles or any lesions of concern.?Denies?Photosensitivity.?Rash?denies.?Neurologic:?Dizziness?denies.?Fainting?denies.?Headache?denies.? * Medical History:?Gluten sens itivy, Bladder surgery for pacemaker, 10/2013 - Pap Smear 5 years ago, complete Hysterectomy 1994, Lung nodule on ct. 5mm.low risk no need to follow. rt upper lobe unchanged from many years ago, Colonoscopy & Endo 09/14/2018 - Dr. Banuelos (repeat 5 years Due 08/2023) colonoscopy 2024 and had surgery, Lung nodule, Intolerant of atorvastatin. * Family History:?Father: dece ased 44 yrs, lung cancer.?Mother: 85 yrs, cardiac disease, type II diabetes.?3 sister(s) . 1 son(s) , 1 daughter(s) . .? No family history of drug abuse, mother may had been Bipolar Father- lung cancer 1 deceasd brother - 69 Parkinson's, Denies mental health/substance abuse family history. * Social History:?Tobacco Use:?Tobacco Use/Smoking?Patient is a?nonsmoker,?Additional Findings: Tobacco Non-User?Current non-smoker, currently using no form of tobacco.?Drugs/Alcohol:?Alcohol Screen?Did you have a drink containing alcohol in the past year??No,?Points?0,?Interpretation?Negative.?Miscellaneous:?Caffeine: yes, frequency:, 1-2 cups per day. Children: yes. Community involvements: no. Exercise: yes, Pilates and rides bike everyday and [employer]. Home smoke detector use: yes. Housing: owning. Living with: spouse. Marital status: . Occupation: weeks/months/years, unemployed. Pets: none. Travel outside of the [place]: no. * Medications:?Taking Chromium Picolinate 500 MCG Capsule as directed Orally , Taking Hyoscyamine Sulfate 0.125 MG Tablet 1 tablet as needed Orally Four times a day as needed , Taking Omeprazole 40 MG Capsule Delayed Release 1 capsule Orally Once a day , Taking Synthroid 200 MCG Tablet TAKE ONE TABLET BY MOUTH EVERY DAY IN THE MORNING ON AN EMPTY STOMACH , Taking amLODIPine Besylate 5 MG Tablet TAKE ONE TABLET BY MOUTH EVERY DAY , Taking Pravastatin Sodium 40 MG Tablet TAKE ONE TABLET BY MOUTH EVERY DAY , Taking Irbesartan-hydroCHLOROthiazide 300-12.5 MG Tablet TAKE ONE TABLET BY MOUTH EVERY DAY , Taking Levothyroxine Sodium 50 MCG Tablet TAKE ONE TABLET BY MOUTH EVERY MORNING ON EMPTY STOMACH WITH 200MCG FOR TOTAL 250MCG PER DAY , Not-Taking/PRN Hydrocortisone John-Pramoxine 2.5-1 % Cream 1 application as needed Externally Three times a day , Not-Taking/PRN Ciclopirox 0.77 % Gel 1 application Externally Twice a day , Not-Taking/PRN Estradiol 0.1 MG/GM Cream as directed Vaginal daily , Not-Taking/PRN ProAir HFA 108 (90 Base) MCG/ACT Aerosol Solution 2 puffs as needed Inhalation every 6 hrs , Not-Taking/PRN Valtrex 1 GM Tablet 2 tablet Orally twice a day , Not-Taking/PRN ProAir HFA 108 (90 Base) MCG/ACT Aerosol Solution 2 puffs as needed Inhalation every 4 hrs , Discontinued Zithromax Z-Raphael 250 MG Tablet 2 tablet on the first day, then 1 tablet daily for 4 days Orally Once a day , Discontinued Cipro 250 MG Tablet 1 tablet Orally every 12 hrs * Allergies:?Penicillin G Sodi um: hives, Bactrim: hives, codeine: hives. Objective: * Vitals:?Ht: 65, Wt: 238, BMI :39.6, BP:148/74, Repeat BP:120/78, Wt-k.96. * ???Past Orders: ???Lab:UA ClnCatch+Micro w/r flx Cult (Order Date - 12/18/2024) (Collection Date & Time - 12/18/2024 07:45 AM) ? Value Reference Range ?Color Urine Yellow - ?Appearance Urine Clear - ?PH 5.0 5.0-9.0 - ?Glucose Urine UA Negative Neg ative - mg/dL ?Urine Blood Negative Negative - ?Specific Kiefer - Urine 1.020 1.005-1.025 - ?Urine Protein Negative Neg-Tr john - mg/dL ?Urine Ketones Negative Negati ve - mg/dL ?Nitrite Urine Positive A Negati ve - ?Leukocyte Esterase Urine Moderate (2+) A Negative - ?RBC Urine 0-2 0-2 - /HPF ?WBC Urine 11-20 A 0-5 - /HPF ?Squamous Epithelial Cell Urine 6-10 0-2 - /HPF ?Bacteria Urine 4+ None Seen - ?Hyaline Casts Urine 0-2 0-2 - /LPF ???Lab:Complete Blood Count Auto Diff (Order Date - 12/18/2024) (Collection Date & Time - 12/18/2024 07:45 AM) ? Value Reference Range ?White Blood Count 6.1 4. 8-10.8 - X10*3/uL ?Red Blood Count 4.14 L 4.20 -5.50 - X10*6/uL ?Hemoglobin 12.0 12.0-16.0 - g/dl ?Hematocrit 35.9 L 37.0-47.0 - % ?Mean Corpuscular Volume 86.7 80.0-98.0 - fL ?Mean Corpuscular Hemoglobin 29.0 27.0-33.0 - pg ?Mean Corpuscular HGB Conc 33.4 31.0-35.0 - g/dl ?Red Cell Distribution Width 14.8 11.0-16.0 - % ?Platelet Count 201 160-4 00 - X10*3/uL ?Mean Platelet Volume 11.0 9.4-12.3 - fL ?Neutrophils Percent Auto 58.3 45-73 - % ?Imm Gran Pct Auto 0.5 H 0. 0-0.4 - % ?Lymphocytes Percent Auto 31.0 20-40 - % ?Monocytes Percent Auto 7.2 2-11 - % ?Eosinophils Percent Auto 2.3 0-4 - % ?Basophils Percent Auto 0.7 0-2 - % ?NRBC Pct Auto 0.0 0.0-0. 2 - /100WBC ?Neutrophils Absolute Auto 3.6 2.0-8.3 - x10*3/uL ?Imm Gran Abs Auto 0.03 0. 00-0.03 - X10*3/uL ?Lymphocytes Absolute Auto 1.9 1.2-4.9 - X10*3/uL ?Monocytes Absolute Auto 0.4 0.1-1.2 - X10*3/uL ?Eosinophils Absolute Auto 0.1 0.0-0.4 - X10*3/uL ?Basophils Absolute Auto 0.0 0.0-0.2 - X10*3/uL ?NRBC Abs Auto 0.000 0.0-0. 012 - X10*3/uL ???Lab:Lipid Panel (Order Da te - 12/18/2024) (Collection Date & Time - 12/18/2024 07:45 AM) ? Value Reference Range ?Triglycerides 321 H <150 - mg/dL ?Cholesterol 242 H <200 - m g/dL ?LDL Cholesterol Calculated 125 H <100 - mg/dL ?HDL Cholesterol 53 >40 - mg/dL ???Lab:TSH reflex Free T4 (O rder Date - 12/18/2024) (Collection Date & Time - 12/18/2024 07:45 AM) ? Value Reference Range ?TSH reflex Free T4 0.82 0.32-4.0 - uIU/mL ???Lab:Urine Culture (Order Date - 12/18/2024) (Collection Date & Time - 12/18/2024) ? Value Reference Range ?O:ESCCOL Escherichia coli - ?Urine Culture Susceptibility not routinely performed on this isolate. - ?Ampicillin 8 S - ?Ceftriaxone <=0.25 S - ?Gentamicin <=1 S - ?Nitrofurantoin <=16 S - ?Trimethoprim/Sulf amethoxazole <=20 S - ?Cefepime <=0.12 S - ?Ciprofloxacin <=0.06 S - ?O:STANEG Coag negative Staphylococcus - ?Cefazolin (Urine) <=1 S - * Examination: ???General Examination: ?GENERAL APPEARANCE:?well developed, well nourished, in no acute distress.?HEAD:?normocephalic, atraumatic.?EYES:?pupils equal, round, reactive to light and accommodation, sclera non-icteric.?EARS:?normal.?ORAL CAVITY:?mucosa moist.?THROAT:?clear.?NECK/THYROID:?neck supple, full range of motion, no cervical lymphadenopathy, no bruits.?SKIN:?warm and dry, no suspicious lesions.?HEART:?regular rate and rhythm, S1, S2 normal, no murmurs.?LUNGS:?clear to auscultation bilaterally.?BREASTS:?No mass, no lump.?ABDOMEN:?soft, nontender, nondistended, bowel sounds present, normal, no organomegaly , no masses palpable.?RECTAL EXAM:?just had colonoscopy.?FEMALE GENITOURINARY:?done by savings teller.?EXTREMITIES:?no clubbing, cyanosis, or edema.?NEUROLOGIC:?nonfocal, motor strength normal upper and lower extremities, sensory exam intact.? Assessment: * Assessment: 1.?Essential hypertension - I10 (Primary)???2.?Barretts esophagus without dysplasia - K22.70???3.?Tubular adenoma - D36.9??? Plan: * Treatment: 2.?Barretts esophagus withou t dysplasia? Notes: had recent endoscopy and biopsy?? 3.?Tubular adenoma? Notes: had colonoscopy this year repeat in 5 years?? * Preventive Medicine:? ??Counseling:?Care goal follow-up plan:?Counseling for abnormal BMI provided?Yes,?Above Normal BMI Follow-up?Giving encouragement to exercise.? * * The named appointment provid er may or may not be the originator of this progress note, and it is not deemed complete until electronically signed by the appointment provider. Sign off status: Pending * Provider:?Audie Haywood MD Date:?0 12/25/2024 Generated for Alex taylor/Radha/eTransmitting on:?01/01/2025 12:38 PM EDT History and Physical Notes * HPI (History of Present Illness) Category Sub-Category Detail Notes Category Not es Symptom(s) patient is a 69 yo female here for visit with review of recent labs andfollow up of chronic issues here for yearly evaluation. rt leg is not working for riding her bike. is doing an exercise routine and it doesn't come off the bike Depression Screening PHQ-9 Little inte rest or pleasure in doing things: Not at all Feeling down, depressed, or hopeless: No t at all Trouble falling or staying asleep, or sl eeping too much: Not at all Feeling tired or having little energy: N ot at all Poor appetite or overeating: Not at all Feeling bad about yourself o r that you are a failure, or have let yourself or your family down: Not at all Trouble concentrating on thi ngs, such as reading the newspaper or watching television: Not at all Moving or speaking so slowly that other people could have noticed; or the opposite, being so fidgety or restless that you have been moving around a lot more than usual: Not at all Thoughts that you would be b pranav off or of hurting yourself in some way: Not at all Total Score: 0 Interpretation and Intervention Depression Megan alston Findings: Negative Follow-Up for Depression: : review of PH Q-9 found negative result, no follow-up needed SDOH Questions SDOH Questions In the past year have you been worried about losing housing?: No In the past year have you or any family members you live with been unable to get any of the following when it was really needed? Check all that apply:: None Fall Risk History Have you had any falls with injury in the past year?: Yes fell off her bike onto her lawn , landed on left side no injury Have you had two or more falls in the year?: No Communication Needs Communication Needs Does the patient have a hearing impairment: No Does the patient have a vision impairmen t?: Yes ?If yes, what is the vision impairment?: Glasses Does the patient have a cognition impair ment?: No Examination Category Sub-Category Detail Notes Category Not es General Examination GENERAL APPEARANCE: well dev eloped, well nourished, in no acute distress HEAD: normocephalic, atrau matic EYES: pupils equal, round, reactive to light and accommodation, sclera non- icteric EARS: normal THROAT: clear NECK/THYROID: neck supple, full ra nge of motion, no cervical lymphadenopathy, no bruits HEART: regular rate and rhy thm, S1, S2 normal, no murmurs LUNGS: clear to auscultatio n bilaterally ABDOMEN: soft, nontender, non distended, bowel sounds present, normal, no organomegaly , no masses palpable NEUROLOGIC: nonfocal, motor stre ngth normal upper and lower extremities, sensory exam intact SKIN: warm and dry, no trina picious lesions EXTREMITIES: no clubbing, cyanosi s, or edema BREASTS: No mass, no lump RECTAL EXAM: just had colonoscopy FEMALE GENITOURINARY: done by savings teller ORAL CAVITY: mucosa moist
== END 2025-01-01 10:46 | disposition home or self-care (01) ==
LOC: HO.LNP 10:45
PROVIDERS: Visit Provider Internal Medicine
DX: N39.0 Urinary tract infection, site not specified (principal); Z51.89 Encounter for other specified aftercare
CPT/HCPCS: 81001

== ENCOUNTER 2025-01-08 09:52 | Outpatient (REF) | payer MEDICARE, SELFPAY ==
[2025-01-08 10:25] LABS: Appearance Urine Clear; Color Urine Dark Yellow; Glucose Urine UA Negative (Negative); Leukocyte Esterase Urine Trace (Negative); Nitrite Urine Negative (Negative); Specific Gravity - Urine 1.025 (1.005-1.025); UMIC TRIGGER UACC YES; Urine Blood Negative (Negative); Urine Ketones Trace mg/dL (Negative); Urine Protein Negative (Neg-Trace)
[2025-01-08 10:31] LABS: Bacteria Urine 2+ (None Seen); Hyaline Casts Urine 0-2 /LPF (0-2); RBC Urine 0-2 /HPF (0-2); WBC Urine 0-5 /HPF (0-5)
== END 2025-01-08 09:53 | disposition home or self-care (01) ==
LOC: HO.LNP 09:52
PROVIDERS: Visit Provider Internal Medicine
DX: N39.0 Urinary tract infection, site not specified (principal)
CPT/HCPCS: 81001

== ENCOUNTER 2025-06-27 11:25 | Outpatient (REF) | payer MEDICARE, SELFPAY ==
[2025-06-27 12:19] LABS: Alanine Aminotransferase 16 U/L (0-31); Albumin Level 4.3 g/dL (3.5-5.0); Alkaline Phosphatase 124 U/L (39-117); Aspartate Amino Transferase 28 U/L (5-31); Cholesterol 234 mg/dL (<200); HDL Cholesterol 59 mg/dL (>40); Total Protein 7.2 g/dL (6.5-8.0); Triglycerides 225 mg/dL (<150)
[2025-06-27 14:07] LABS: Reflex LDLD? No
== END 2025-06-27 11:26 | disposition home or self-care (01) ==
LOC: HO.LNP 11:25
PROVIDERS: Visit Provider Internal Medicine
DX: E78.00 Pure hypercholesterolemia, unspecified (principal)
CPT/HCPCS: 80061; 80076